=== PATIENT | female | born 1960 | race African-American/Black ===

== ENCOUNTER 2016-08-19 02:03 | Inpatient (IN) | payer MEDICARE, OTHER ==
[2016-08-19] VITALS (16 sets, daily range): BP systolic 112–231; BP diastolic 55–125; PULSE 70–117; RESP 16–24; TEMP 97.9–98.6; O2SAT 94–100
[~2016-08-19] VITALS: Ht 157.5 cm; Wt 66.5 kg
[~2016-08-19 02:03] MED LIST: ALBU8I INH; APIX5TAB PO; CALC.25 PO; CARD4TAB2 PO; CLON.1 PO; GABA100C4 PO; HYDR100T2 PO; LOPI600T PO; MAGN400 PO; METO100T PO; MEVA40TA PO; MYCO500 PO; OMEP40CA2 PO; PRED20 PO; PROC60TA PO; TACR1 PO; TRIAMC.1%T TOP; TUMS CHEW; VITA-13 PO; Z.0.WALKERFRONT
[2016-08-19] MEDS ORDERED: ONDANSETRON HCL 4 MG/2 ML VIAL ONE (02:55)
[2016-08-19] MEDS ORDERED: FAMOTIDINE 20 MG/2 ML VIAL IV PUSH ONE (03:00)
[2016-08-19] MEDS ORDERED: ONDANSETRON HCL 4 MG/2 ML VIAL IVP ONE (03:00)
[2016-08-19] MEDS ORDERED: SODIUM CHLORIDE 0.9% FLUSH 10 ML FLUSH IV FLUSH PRN ×3 (03:00→09:45)
[2016-08-19] MEDS ORDERED: hydrALAZINE HCL 20 MG/ML VIAL IV PUSH ONE ×2 (03:00→04:45)
--- NOTE | 2016-08-19 03:08 | PD ---
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 Patient reports that she had her normal dialysis on Wednesday, reports that after that she went out to eat for lunch, reports that shortly thereafter, she began to feel sick. Patient reports that she began to have a headache, reports that she feels increased pressure to her head, reports that she felt as if her blood pressure was high with the systolic blood pressure in the 170s. Patient reports that she has no vision changes with her headache, reports headache as a pounding sensation to her head. Patient reports that she has been taking all her blood pressure medications as prescribed. Patient reports that tonight, she began to feel sick and reports that she has been feeling nauseous and has been vomiting. Patient reports that she has an uncomfortable, crampy feeling to her abdomen with no pain. Denies any sick contacts. Denies chest pain or shortness of breath at this time. Reports that she does make some urine PFSH Past Medical History Arthritis: Yes Asthma: No Blood Disorders: No Heart Rhythm Problems: No Cancer: No Cardiovascular Problems: Yes (SLIGHT CVA) High Cholesterol: Yes Chest Pain: No Congestive Heart Failure: No COPD: No Cerebrovascular Accident: Yes Diabetes: Yes Patient Takes Glucophage: Yes Dialysis: No Diminished Hearing: No Endocrine: No Gastrointestinal Disorders: Yes (GERD/REFLUX) GERD: Yes Genitourinary: Yes (TRANSPLANT) Headaches: No Hepatitis: No Hiatal Hernia: No Hypertension: Yes Immune Disorder: No Implanted Vascular Access Dvce: Yes (AV FISTULA L ARM) Musculoskeletal: No Neurologic: Yes (WEAKNESS DUE TO RECENT HOSPITALIZATION) Psychiatric: No Reproductive: No Respiratory: Yes Migraines: No Myocardial Infarction: No Renal Failure: Yes (SECONDARY TO A VIRUS PER PT/RENAL TRANSPLANT) Seizures: Yes Sleep Apnea: Yes Thyroid Disease: No Ulcer: No Tetanus Vaccination: Unknown Influenza Vaccination: Yes ?: Not Menopausal: Yes : 1 Para: 0 Miscarriage: 1 : 0 Past Surgical History Abdominal Surgery: No AICD: No Appendectomy: No Cardiac Surgery: No Cholecystectomy: No Ear Surgery: No Endocrine Surgery: No Eye Surgery: No Genitourinary Surgery: Yes (LEFT KIDNEY TRANSPLANT) Gynecologic Surgery: No Joint Replacement: No Oral Surgery: No Pacemaker: No Thoracic Surgery: Yes Other Surgery: Yes (VAS-CATH PLACEMENT (RIGHT CHEST)/REMOVED) Social History Alcohol Use: No Tobacco Use: No Substance Use: No Allergies-Medications (Allergen,Severity, Reaction): Coded Allergies: Penicillin (Verified Allergy, Severe, Seizures, 08/19/16) Protonix (Verified Allergy, Severe, Seizures, 08/19/16) Reported Meds & Prescriptions Reported Meds & Active Scripts Active Active Prescriptions or Reported Medications Unobtainable Review of Systems General / Constitutional: No: Fever Eyes: No: Visual changes HENT: Positive: Headaches Cardiovascular: No: Chest Pain or Discomfort Respiratory: No: Shortness of Breath Gastrointestinal: Positive: Nausea, Vomiting, No: Abdominal Pain Genitourinary: No: Dysuria Musculoskeletal: No: Pain Skin: No Rash Neurologic: Positive: Headache, No: Weakness Psychiatric: No: Depression Endocrine: No: Polydipsia Hematologic/Lymphatic: No: Easy Bruising Physical Exam Narrative GENERAL: Patient in moderate distress SKIN: warm/dry. HEAD: Atraumatic. Normocephalic. EYES: Pupils equal and round. No scleral icterus. No injection or drainage. ENT: No nasal bleeding or discharge. Mucous membranes pink and moist. NECK: Trachea midline. No JVD. CARDIOVASCULAR: Regular rate and rhythm. No murmur appreciated. RESPIRATORY: No accessory muscle use. Clear to auscultation. Breath sounds equal bilaterally. GASTROINTESTINAL: Abdomen soft, non-tender, nondistended. Hepatic and splenic margins not palpable. MUSCULOSKELETAL: No obvious deformities. No clubbing. No cyanosis. No edema. Patient with right-sided AV fistula with good thrill NEUROLOGICAL: Awake and alert. No obvious cranial nerve deficits. Motor grossly within normal limits. Normal speech. PSYCHIATRIC: Appropriate mood and affect; insight and judgment normal. Data Data Last Documented VS Vital Signs Date Time Temp Pulse Resp B/P Pulse Ox O2 Delivery O2 Flow Rate FiO2 08/19/16 05:25 97 20 198/86 98 08/19/16 03:08 Room Air 08/19/16 02:06 98.6 Orders Ondansetron Inj (Zofran Inj) (08/19/16 02:55) Complete Blood Count With Diff (08/19/16 02:59) Comprehensive Metabolic Panel (08/19/16 02:59) Lipase (08/19/16 02:59) Prothrombin Time / Inr (Pt) (08/19/16 02:59) Act Partial Throm Time (Ptt) (08/19/16 02:59) Urinalysis - C+S If Indicated (08/19/16 02:59) Iv Access Insert/Monitor (08/19/16 02:59) Ecg Monitoring (08/19/16 02:59) Oximetry (08/19/16 02:59) NPO (08/19/16 02:59) Ondansetron Inj (Zofran Inj) (08/19/16 03:00) Sodium Chloride 0.9% Flush (Ns Flush) (08/19/16 03:00) Chest, Single Ap (08/19/16 02:59) Famotidine Inj (Pepcid Inj) (08/19/16 03:00) Ct Brain W/O Iv Contrast(Rout) (08/19/16 02:59) Ckmb (Isoenzyme) Profile (08/19/16 02:59) Troponin I (08/19/16 02:59) Hydralazine Inj (Apresoline Inj) (08/19/16 03:00) Dexamethasone Inj (Decadron Inj) (08/19/16 03:15) Lorazepam Inj (Ativan Inj) (08/19/16 03:30) Metoclopramide Inj (Reglan Inj) (08/19/16 03:30) Metoclopramide Inj (Reglan Inj) (08/19/16 03:45) CKMB (08/19/16 02:50) CKMB% (08/19/16 02:50) Hydralazine Inj (Apresoline Inj) (08/19/16 04:45) Labs Laboratory Tests Test 08/19/16 02:50 White Blood Count 10.5 TH/MM3 Red Blood Count 5.81 MIL/MM3 Hemoglobin 12.4 GM/DL Hematocrit 39.8 % Mean Corpuscular Volume 68.4 FL Mean Corpuscular Hemoglobin 21.3 PG Mean Corpuscular Hemoglobin 31.1 % Concent Red Cell Distribution Width 16.3 % Platelet Count 262 TH/MM3 Mean Platelet Volume 8.8 FL Neutrophils (%) (Auto) 80.2 % Lymphocytes (%) (Auto) 10.2 % Monocytes (%) (Auto) 8.7 % Eosinophils (%) (Auto) 0.4 % Basophils (%) (Auto) 0.5 % Neutrophils # (Auto) 8.4 TH/MM3 Lymphocytes # (Auto) 1.1 TH/MM3 Monocytes # (Auto) 0.9 TH/MM3 Eosinophils # (Auto) 0.0 TH/MM3 Basophils # (Auto) 0.0 TH/MM3 CBC Comment AUTO DIFF Differential Comment AUTO DIFF CONFIRMED Platelet Estimate NORMAL Platelet Morphology Comment NORMAL Ovalocytes 1+ Acanthocytes OCC Prothrombin Time 11.3 SEC Prothromb Time International 1.0 RATIO Ratio Activated Partial 28.7 SEC Thromboplast Time Sodium Level 138 MEQ/L Potassium Level 4.4 MEQ/L Chloride Level 101 MEQ/L Carbon Dioxide Level 24.1 MEQ/L Anion Gap 13 MEQ/L Blood Urea Nitrogen 32 MG/DL Creatinine 4.16 MG/DL Estimat Glomerular Filtration 13 ML/MIN Rate Random Glucose 180 MG/DL Calcium Level 9.2 MG/DL Total Bilirubin 0.4 MG/DL Aspartate Amino Transf 22 U/L (AST/SGOT) Alanine Aminotransferase 17 U/L (ALT/SGPT) Alkaline Phosphatase 150 U/L Total Creatine Kinase 119 U/L Creatine Kinase MB 2.8 NG/ML Troponin I LESS THAN 0.02 NG/ML Total Protein 6.9 GM/DL Albumin 3.4 GM/DL Lipase 169 U/L [facility] Medical Decision Making Medical Screen Exam Complete: Yes Emergency Medical Condition: Yes Interpretation(s) EKG at 0229: NSR at 84bpm, qt/qtc: 376/416, no acute st or t wave changes Vital Signs Date Time Temp Pulse Resp B/P Pulse Ox O2 Delivery O2 Flow Rate FiO2 08/19/16 02:32 85 20 100 08/19/16 02:17 16 08/19/16 02:06 98.6 117 18 231/125 97 Differential Diagnosis Hypertensive emergency, intracranial hemorrhage, electrolyte abnormality, ACS Narrative Course 55-year-old female with end-stage renal disease on hemodialysis, presents to emergency room with complaints of nausea vomiting and headache. Patient reports that her symptoms began yesterday after her dialysis, reports that symptoms initially began with the headache and then progressed to nausea and vomiting. Patient reports that she feels a panic sensation to her head, no vision changes. Patient denies any trauma to her head. Patient reports that she has not been able to stop vomiting tonight, reports a cramping sensation to her abdomen with no pain. Patient actively vomiting in the emergency room, IV Zofran ordered for patient. Patient hypotensive with a blood pressure of 231/125, will give patient a dose of IV hydralazine. Labs as well as CT of head ordered further evaluation of symptoms. Patient was placed on playground monitor upon arrival to emergency room. CBC & BMP Diagram 08/19/16 02:[address] 08/19/16258 Signed Impressions: Service Date/Time: Friday, August 19, 2016 03:37 - CONCLUSION: No acute intracranial disease. Ashish Soriano MD Chest X-Ray 08/19/16258 Signed Impressions: Service Date/Time: Friday, August 19, 2016 03:07 - CONCLUSION: No acute disease. Ashish Soriano MD Patients blood pressure improved now, 198/86 after 30mg IV hydralazine. Patient reports the headache has since resolved. I did review all labs and studies with patient in detail. Patient will require observation for hypertensive urgency. case reviewed with dr. valadez who accepts pt to service Diagnosis Primary Impression: Hypertensive urgency Additional Impression: Cephalgia Admitting Information Admitting Physician Requests: Observation Scripts Unable to Obtain Active Prescriptions or Reported Meds Trinh Clarke DO Aug 19, 2016 03:08
[2016-08-19] MEDS ORDERED: DEXAMETHASONE SOD PHOS 20 MG/5 ML VIAL IV PUSH ONE (03:15)
[2016-08-19 03:24] LABS: AUTOMATED NEUTROPHIL # 8.4 TH/MM3 (1.8-7.7); BASOPHIL % 0.5 % (0.0-2.0); EOSINOPHIL % 0.4 % (0.0-4.0); HEMATOCRIT 39.8 % (35.0-46.0); LYMPH % 10.2 % (9.0-44.0); LYMPHOCYTE # 1.1 TH/MM3 (1.0-4.8); MEAN CELL VOLUME 68.4 FL (80.0-100.0); MEAN CORPUSCULAR HEMOGLOBIN 21.3 PG (27.0-34.0); MEAN CORPUSCULAR HGB CONC 31.1 % (32.0-36.0); MONO % 8.7 % (0.0-8.0); NEUT % 80.2 % (16.0-70.0); PLATELET COUNT 262 TH/MM3 (150-450); RED BLOOD COUNT 5.81 MIL/MM3 (4.00-5.30); RED CELL DISTRIBUTION WIDTH 16.3 % (11.6-17.2); WHITE BLOOD COUNT 10.5 TH/MM3 (4.0-11.0)
[2016-08-19 03:25] LABS: HEMO FLAGS AUTO DIFF
[2016-08-19] MEDS ORDERED: METOCLOPRAMIDE HCL 10 MG/2 ML VIAL IV PUSH ONE ×2 (03:30→03:45)
[2016-08-19] MEDS ORDERED: LORazepam 2 MG/ML VIAL IV PUSH ONE (03:30)
[2016-08-19 03:40] LABS: APTT (PATIENT) 28.7 SEC (24.3-30.1); PROTHROMBIN TIME - PATIENT 11.3 SEC (9.8-11.6)
[2016-08-19 03:52] LABS: SCAN/DIFF AUTO DIFF CONFIRMED
[2016-08-19 03:53] LABS: ACANTHOCYTES OCC (NORMAL); ALKALINE PHOSPHATASE 150 U/L (45-117); ALT (GPT) 17 U/L (10-53); ANION GAP 13 MEQ/L (5-15); AST (GOT) 22 U/L (15-37); BICARBONATE 24.1 MEQ/L (21.0-32.0); BLOOD UREA NITROGEN 32 MG/DL (7-18); CHLORIDE 101 MEQ/L (98-107); CREATINE KINASE 119 U/L (26-192); GLOMERULAR FILTRATION RATE 13 ML/MIN (>89); OVALOCYTES 1+ (NORMAL); POTASSIUM 4.4 MEQ/L (3.5-5.1); SODIUM (NA) 138 MEQ/L (136-145); TOTAL BILIRUBIN ADULT 0.4 MG/DL (0.2-1.0)
[2016-08-19 03:54] LABS: PLATELET ESTIMATE SMEAR NORMAL (NORMAL); PLATELET MORPHOLOGY NORMAL (NORMAL)
[2016-08-19 04:06] LABS: CKMB 2.8 NG/ML (0.5-3.6)
--- NOTE | 2016-08-19 04:10 | RADRPT ---
EXAM DATE/TIME: 08/19/2016 03:37 [facility] COMPARISON: No previous studies available for comparison. INDICATIONS : Headache. RADIATION DOSE: 56.77 CTDIvol (mGy) MEDICAL HISTORY : Renal disease, end stage. Hypertension. Diabetes. SURGICAL HISTORY : None. ENCOUNTER: Initial ACUITY: 1 day PAIN SCALE: 5/10 LOCATION: cranial TECHNIQUE: Multiple contiguous axial images were obtained of the head. Using automated exposure control and adj ustment of the mA and/or kV according to patient size, radiation dose was kept as low as reasonably a chievable to obtain optimal diagnostic quality images. FINDINGS: CEREBRUM: The ventricles are normal for age. No evidence of midline shift, mass lesion, hemorrhage or acute in farction. No extra-axial fluid collections are seen. POSTERIOR FOSSA: The cerebellum and brainstem are intact. The 4th ventricle is midline. The cerebellopontine angle i s unremarkable. EXTRACRANIAL: The visualized portion of the orbits is intact. SKULL: The calvaria is intact. No evidence of skull fracture. CONCLUSION: No acute intracranial disease. Ashish Soriano MD on August 19, 2016 at 4:08 Board Certified Radiologist. This report was verified electronically.
--- NOTE | 2016-08-19 04:15 | RADRPT ---
EXAM DATE/TIME: 08/19/2016 03:07 [facility] COMPARISON: CHEST SINGLE AP, June 27, 2015, 17:21. INDICATIONS : Shortness of breath. MEDICAL HISTORY : Hypercholesterolemia. Hypertension Gastroesophageal reflux disease. Stroke. Seizures. Sleep apnea . End stage renal disease. Arthritis. Diabetes. Hyperlipidemia, Upper Extremity DVT SURGICAL HISTORY : Renal transplant 2009. Right arm AV fistula. Vas - Cath for hemodialysis ENCOUNTER: Initial ACUITY: 1 day PAIN SCORE: 8/10 LOCATION: Bilateral chest FINDINGS: A single view of the chest demonstrates the lungs to be symmetrically aerated without evidence of mas s, infiltrate or effusion. The cardiomediastinal contours are unremarkable. Osseous structures are intact. No free air underneath the hemidiaphragms. CONCLUSION: No acute disease. Ashish Soriano MD on August 19, 2016 at 4:13 Board Certified Radiologist. This report was verified electronically.
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
[2016-08-19] MEDS ORDERED: ENALAPRILAT 1.25 MG/ML VIAL IV PRN (06:15)
[2016-08-19] MEDS ORDERED: LABETALOL HCL 100 MG/20 ML VIAL IV PRN (06:15)
[2016-08-19] MEDS ORDERED: hydrALAZINE HCL 20 MG/ML VIAL IV PRN (06:15)
[2016-08-19] MEDS ORDERED: cloNIDine HCL 0.1 MG TAB PO PRN ×2 (06:15→09:45)
[2016-08-19] MEDS: hydrALAZINE HCL 100 MG TAB PO SCH ×3 (07:00→20:21)
[2016-08-19] MEDS ORDERED: ALBUTEROL SULFATE 90 MCG/ACT HFA 18 GM INHALER INH PRN (07:00)
[2016-08-19] MEDS: MAGNESIUM OXIDE 400 MG TAB PO SCH ×3 (07:00→20:21)
[2016-08-19] MEDS ORDERED: GEMFIBROZIL 600 MG TAB PO SCH (07:00)
[2016-08-19] MEDS ORDERED: GABA100C4 PO (07:04)
[2016-08-19] MEDS ORDERED: HYDR-3801 PO (07:04)
[2016-08-19] MEDS ORDERED: METO100T PO (07:04)
[2016-08-19] MEDS ORDERED: PRED5TAB PO (07:04)
[2016-08-19] MEDS ORDERED: TRIA0.1L TOPICAL (07:04)
[2016-08-19] MEDS ORDERED: MYCO500 PO (07:04)
[2016-08-19] MEDS ORDERED: NIFE1TAB86 PO (07:04)
[2016-08-19] MEDS ORDERED: TACR1 PO (07:04)
[2016-08-19] MEDS ORDERED: GEMF600T PO (07:04)
[2016-08-19] MEDS ORDERED: APIX5TAB PO (07:04)
[2016-08-19] MEDS ORDERED: DOXA4TAB3 PO (07:05)
[2016-08-19] MEDS ORDERED: CALC500C6 CHEW (07:05)
[2016-08-19] MEDS ORDERED: MAGN400T2 PO (07:05)
[2016-08-19] MEDS ORDERED: VENTAER INH (07:05)
[2016-08-19] MEDS ORDERED: VITA100018 PO (07:05)
[2016-08-19] MEDS ORDERED: CLON0.1T PO (07:05)
[2016-08-19] MEDS ORDERED: CALC0.25 PO (07:05)
[2016-08-19] MEDS ORDERED: OMEP40CA2 PO (07:05)
[2016-08-19] MEDS ORDERED: LOVA40TA PO (07:05)
[2016-08-19] MEDS ORDERED: HYDROmorphone HCL PF 1 MG/ML VIAL IV PRN (07:15)
[2016-08-19] MEDS ORDERED: ACETAMINOPHEN/HYDROcodone 325 MG/5 MG TAB PO PRN (07:15)
[2016-08-19] MEDS ORDERED: METOCLOPRAMIDE HCL 10 MG/2 ML VIAL IV PUSH PRN (07:15)
[2016-08-19] MEDS ORDERED: ACETAMINOPHEN 325 MG TAB PO PRN ×2 (07:15→09:45)
[2016-08-19] MEDS ORDERED: ONDANSETRON HCL 4 MG/2 ML VIAL IVP PRN (07:15)
[2016-08-19] MEDS ORDERED: ACETAMINOPHEN/HYDROcodone 325 MG/10 MG TAB PO PRN (07:15)
[2016-08-19] MEDS ORDERED: PROCHLORPERAZINE 25 MG SUPP RECTAL PRN (07:15)
[2016-08-19] MEDS ORDERED: predniSONE 5 MG TAB PO SCH (09:00)
[2016-08-19] MEDS ORDERED: TACROLIMUS 1 MG CAP PO SCH (09:00)
[2016-08-19] MEDS: APIXABAN 5 MG TABLET PO SCH ×2 (09:00→20:22)
[2016-08-19] MEDS ORDERED: NON-FORMULARY DRUG (Omeprazole 40 MG) PO SCH (09:00)
[2016-08-19] MEDS ORDERED: MYCOPHENOLATE MOFETIL 500 MG TAB PO SCH (09:00)
[2016-08-19] MEDS ORDERED: CALCITRIOL 0.25 MCG CAP PO SCH (09:00)
[2016-08-19] MEDS: TRIAMCINOLONE ACET 0.1% LOTION 60 ML BTL TOPICAL SCH ×2 (09:00→13:00)
[2016-08-19] MEDS ORDERED: DEXTROSE 50% IN WATER 50 ML VIAL(D50) IV PUSH PRN (09:30)
[2016-08-19] MEDS ORDERED: GLUCAGON 1 MG/ML VIAL OTHER PRN (09:30)
[2016-08-19] MEDS ORDERED: SODIUM CHLOR 0.9% 1000 ML INJ 1,000 ML IV PRN ×3 (09:37)
[2016-08-19] MEDS ORDERED: HEPARIN SODIUM - IV 10,000 UNITS/10 ML VIAL PRN (09:45)
[2016-08-19] MEDS ORDERED: ALBUMIN HUMAN 25% 25 GM/100 ML BAGP IV PRN (09:45)
[2016-08-19] MEDS ORDERED: HEPARIN SODIUM - IV 10,000 UNITS/10 ML VIAL IVF PRN (09:45)
[2016-08-19] MEDS ORDERED: diphenhydrAMINE HCL 25 MG CAP PO PRN (09:45)
[2016-08-19] MEDS ORDERED: GENTAMICIN SULFATE (DIALYSIS USE ONLY) 20 MG/2 ML VIAL IV PRN (09:45)
[2016-08-19] MEDS ORDERED: MANNITOL 12.5 GM/50 ML VIAL IV PRN (09:45)
[2016-08-19] MEDS ORDERED: GELATIN 12 MM/7 MM FOAM TOP PRN (09:45)
[2016-08-19] MEDS ORDERED: ONDANSETRON HCL 4 MG/2 ML VIAL IV PRN (09:45)
[2016-08-19] MEDS ORDERED: NITROGLYCERIN 0.4 MG SL 25 TABS/BTL SL PRN (09:45)
--- NOTE | 2016-08-19 11:51 | EKG ---
Date Performed: 08/19/2016 Time Performed: 02:29:37 PTAGE: 55 years EKG: Sinus rhythm POSSIBLE LEFT ATRIAL ENLARGEMENT BORDERLINE ECG NO PREVIOUS TRACING DOCTOR: Jose Kirk Interpretating Date/Time 08/19/2016 11:50:06
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
[2016-08-19] MEDS: NIFEdipine 60 MG SUSTAINED RELEASE TAB PO SCH (12:05)
[2016-08-19] MEDS: CHOLECALCIFEROL (VIT D3) 1000 UNIT TAB PO SCH (12:05)
[2016-08-19] MEDS: METOPROLOL TARTRATE 100 MG TAB PO SCH ×2 (12:06→20:21)
[2016-08-19] MEDS: INSULIN ASPART SUPPLEMENTAL SCALE SQ SCH ×3 (12:06→20:18)
[2016-08-19] MEDS: CALCIUM CARBONATE 500 MG CHEWABLE TAB CHEW SCH ×2 (12:06→20:21)
[2016-08-19] MEDS: SODIUM CHLORIDE 0.9% FLUSH 10 ML FLUSH IV FLUSH SCH ×2 (12:06→20:20)
[2016-08-19] MEDS: DOXAZOSIN MESYLATE 4 MG TAB PO SCH (12:06)
[2016-08-19] MEDS: LOSARTAN 50 MG TAB PO SCH (12:07)
[2016-08-19] MEDS: TRIAMCINOLONE ACETONIDE 0.1% CREAM 15 GM TOPICAL SCH (16:26)
[2016-08-19] MEDS ORDERED: GABAPENTIN 100 MG CAP PO SCH (21:00)
[2016-08-19] MEDS ORDERED: PRAVASTATIN SOD 40 MG TAB PO SCH (21:00)
[2016-08-20] VITALS: BP 133/65; PULSE 69; RESP 18; TEMP 99.4; O2SAT 99
[2016-08-20 04:00] VITALS: BP 126/74; PULSE 64; RESP 18; TEMP 98; O2SAT 97
[2016-08-20] MEDS: INSULIN ASPART SUPPLEMENTAL SCALE SQ SCH ×2 (04:46→11:00)
[2016-08-20] MEDS: MAGNESIUM OXIDE 400 MG TAB PO SCH ×2 (05:22→12:45)
[2016-08-20] MEDS: hydrALAZINE HCL 100 MG TAB PO SCH (05:22)
[2016-08-20 07:25] LABS: AUTOMATED NEUTROPHIL # 5.3 TH/MM3 (1.8-7.7); BASOPHIL % 0.3 % (0.0-2.0); EOSINOPHIL % 0.6 % (0.0-4.0); HEMATOCRIT 36.7 % (35.0-46.0); LYMPH % 18.9 % (9.0-44.0); LYMPHOCYTE # 1.4 TH/MM3 (1.0-4.8); MEAN CELL VOLUME 67.6 FL (80.0-100.0); MEAN CORPUSCULAR HEMOGLOBIN 21.3 PG (27.0-34.0); MEAN CORPUSCULAR HGB CONC 31.5 % (32.0-36.0); MONO % 11.5 % (0.0-8.0); NEUT % 68.7 % (16.0-70.0); PLATELET COUNT 273 TH/MM3 (150-450); RED BLOOD COUNT 5.43 MIL/MM3 (4.00-5.30); RED CELL DISTRIBUTION WIDTH 16.4 % (11.6-17.2); WHITE BLOOD COUNT 7.7 TH/MM3 (4.0-11.0)
[2016-08-20 07:36] LABS: HEMO FLAGS AUTO DIFF
[2016-08-20 07:41] VITALS: PULSE 84
[2016-08-20 07:43] LABS: BICARBONATE 25.6 MEQ/L (21.0-32.0)
[2016-08-20 08:00] VITALS: BP 134/61; PULSE 66; RESP 20; TEMP 97.9; O2SAT 96
[2016-08-20 08:27] LABS: KERATOCYTES OCC (NORMAL); OVALOCYTES 1+ (NORMAL); SCAN/DIFF AUTO DIFF CONFIRMED
[2016-08-20] MEDS: APIXABAN 5 MG TABLET PO SCH (09:00)
[2016-08-20] MEDS: TRIAMCINOLONE ACETONIDE 0.1% CREAM 15 GM TOPICAL SCH ×2 (09:00→12:48)
[2016-08-20] MEDS ORDERED: LANSOPRAZOLE SOLUTAB 30 MG TAB PO SCH (09:00)
[2016-08-20] MEDS: SODIUM CHLORIDE 0.9% FLUSH 10 ML FLUSH IV FLUSH SCH (09:00)
--- NOTE | 2016-08-20 10:32 | HHI.NPPN ---
Subjective General Problems: Hypertension Renal Failure: Chronic, End Stage Renal Disease Interval History Seen during dialysis this morning. Blood pressure is much better. She reports confusion yesterday, does not remember informing us that she was off her antirejection medication. Potential discharge today. (Liliane Ramos) Objective Data Data 08/19/16 08/20/16 19:00 07:00 Intake Total 280 ml 484 ml Balance 280 ml 484 ml Intake Oral 280 ml 480 ml IV Total 4 ml # Voids 3 3 # Bowel Movements 0 1 Vital Signs Date Time Temp Pulse Resp B/P Pulse Ox O2 Delivery O2 Flow Rate FiO2 08/20/16 08:00 97.9 66 20 134/61 96 08/20/16 07:42 Room Air 08/20/16 07:41 84 08/20/16 04:00 98.0 64 18 126/74 97 08/20/16 00:00 99.4 69 18 133/65 99 08/19/16 22:02 21 08/19/16 20:26 71 08/19/16 20:15 Room Air 08/19/16 20:00 98.5 70 17 112/55 96 08/19/16 16:00 73 08/19/16 16:00 97.9 72 18 151/67 98 08/19/16 11:54 Room Air 08/19/16 10:36 98.5 79 18 155/69 94 (Liliane Ramos) -: 08/20/16 0536 08/20/16 0536 Imaging Last Impressions Head CT 08/19/16258 Signed Impressions: Service Date/Time: Friday, August 19, 2016 03:37 - CONCLUSION: No acute intracranial disease. Ashish Soriano MD Chest X-Ray 08/19/169 Signed Impressions: Service Date/Time: Friday, August 19, 2016 03:07 - CONCLUSION: No acute disease. Ashish Soriano MD (Liliane Ramos) Physical Exam General Appearance: Well Developed, Well Nourished, No Acute Distress, Sleeping ( Liliane Ramos) Throat Throat Exam: Oral Mucosa [place] & Moist (Liliane Ramos) Pulmonary Resp Exam: Clear Bilaterally, Breath Sounds Equal (Liliane Ramos) Cardiology CV Exam: Regular, Normal Sinus Rhythm (Liliane Ramos) Gastrointestinal/Abdomen GI Exam: Soft, Non-Tender, Bowel Sounds Present (Liliane Ramos) Musculoskeletal MS Exam: Joints Intact, Normal Gait, Normal Tone, Good Strength (Liliane Ramos) Integumentary Skin Exam: Clear, Warm, Dry, Intact (Liliane Ramos) Extremeties Extremities Exam: No Edema, Pedal Pulses Palpable Extremeties Remarks right arm AVF accessed during exam (Liliane Ramos) Neurologic Neuro Exam: Alert, Awake, Oriented, Speech Clear, Moving All Extremities ( Liliane Ramos) Psychiatric Psych Exam: Appropriate Responses (Liliane Ramos) VTE Prophylaxis VTE Remarks lucho (Liliane Ramos) Assessment/Plan Discussed Condition With: Patient Assessment Summary: Hypertension, End Stage Renal Disease, Transplant Kidney Status Problem List: (1) ESRD (end stage renal disease) on dialysis Plan: HD TTS, seen during dialysis today on a 2K, 350 BFR, goal 2L no current electrolyte issues, no evidence of fluid overload has functioning access for HD she is not anemic this admission, no Epogen required on sensipar for secondary hyperparathyroidism she has existing outpatient HD arrangements, can be discharged from renal standpoint (2) Hypertensive urgency Plan: continue now an after discharge Lopressor 100 mg po BID Cardura 4 mg po daily Bumex 2 mg daily losartan 50 mg daily nifedipine XL 60 mg daily hydralazine 100 mg po TID BP has improved (3) Rejection of transplanted organ Plan: she is still on prednisone, cellcept, and tacrolimus (Liliane Ramos) Plan patient was seen and examined during dialysis. BP is better. Non compliance is an issue. She may be forgetful. Patient can be discharged from renal standpoint. (Hoang Denise MD) Liliane Ramos Aug 20, 2016 10:32 Hoang Denise MD Aug 20, 2016 11:29
--- NOTE | 2016-08-20 10:55 | HHI.DCPOC ---
Discharge Care Plan Diagnosis: (1) Hypertensive urgency (2) ESRD (end stage renal disease) on dialysis Goals to Promote Your Health * To prevent worsening of your condition and complications * To maintain your health at the optimal level Directions to Meet Your Goals Take your medications as prescribed Follow your dietary instruction Follow activity as directed Keep your appointments as scheduled Take your immunizations and boosters as scheduled If your symptoms worsen call your PCP, if no PCP go to Urgent Care Center or Emergency Room Smoking is Dangerous to Your Health. Avoid second hand smoke Call the 24-hour hour crisis hotline for domestic abuse at Sydni Morales MD R3 Aug 20, 2016 10:55
[2016-08-20] MEDS ORDERED: TACROLIMUS 1 MG CAP PO ONE (11:30)
[2016-08-20] MEDS ORDERED: MYCOPHENOLATE MOFETIL 500 MG TAB PO ONE (11:30)
[2016-08-20] MEDS ORDERED: predniSONE 5 MG TAB PO SCH (11:30)
[2016-08-20] MEDS ORDERED: CINACALCET HYDROCHLORIDE 30 MG TAB PO SCH (11:30)
[2016-08-20 12:00] VITALS: BP 139/63; PULSE 64; RESP 20; TEMP 98; O2SAT 96
[2016-08-20] MEDS ORDERED: SEVELAMER CARBONATE 800 MG TAB PO SCH (12:00)
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
[2016-08-20] MEDS: CHOLECALCIFEROL (VIT D3) 1000 UNIT TAB PO SCH (12:45)
[2016-08-20] MEDS: LOSARTAN 50 MG TAB PO SCH (12:46)
[2016-08-20] MEDS: NIFEdipine 60 MG SUSTAINED RELEASE TAB PO SCH (12:46)
[2016-08-20] MEDS: METOPROLOL TARTRATE 100 MG TAB PO SCH (12:46)
[2016-08-20] MEDS: DOXAZOSIN MESYLATE 4 MG TAB PO SCH (12:47)
[2016-08-20] MEDS: CALCIUM CARBONATE 500 MG CHEWABLE TAB CHEW SCH (12:47)
[2016-08-21] MEDS ORDERED: CLON0.1T PO ×2 (08:05→08:07)
[2016-08-21] MEDS ORDERED: GEMF600T PO ×2 (08:05→08:07)
[2016-08-21] MEDS ORDERED: HYDR-3801 PO ×2 (08:05→08:07)
[2016-08-21] MEDS ORDERED: GABA100C4 PO ×2 (08:05→08:07)
[2016-10-22] MEDS ORDERED: METO100T PO (09:56)
[2016-10-22] MEDS ORDERED: LOVA40TA PO (09:56)
[2016-10-22] MEDS ORDERED: PRED5TAB PO (09:56)
[2016-10-22] MEDS ORDERED: OMEP40CA2 PO (09:56)
[2016-10-22] MEDS ORDERED: VITA100018 PO (09:56)
[2016-10-22] MEDS ORDERED: VENTAER INH (09:56)
== END 2016-08-20 14:03 | disposition home or self-care (01) | DRG 304 ==
LOC: NEPC 02:03 → NEDA 05:41 → OBSVTOIN 08:24 → N04B 10:37
PROVIDERS: ADMIT Family Medicine; ATTEND Family Medicine
PROC: 5A1D00Z (ICD-10-PCS; principal; 2016-08-20)
DX: I16.0 Hypertensive urgency (principal); N18.6 End stage renal disease; T86.11 Kidney transplant rejection; E11.22 Type 2 diabetes mellitus with diabetic chronic kidney disease; Y83.0 Surgical operation with transplant of whole organ as the cause of abnormal reaction of the patient, or of later complication, without mention of misadventure at the time of the procedure; F32.9 Major depressive disorder, single episode, unspecified; F41.9 Anxiety disorder, unspecified; K21.9 Gastro-esophageal reflux disease without esophagitis; E78.5 Hyperlipidemia, unspecified; J42 Unspecified chronic bronchitis; I12.0 Hypertensive chronic kidney disease with stage 5 chronic kidney disease or end stage renal disease; Z99.2 Dependence on renal dialysis; Z91.19 Patient's noncompliance with other medical treatment and regimen
CPT/HCPCS: 70450; 71010; 80048; 80053; 82550; 82552; 82948; 83690; 84100; 84484; 85025; 85610; 85730; 90935; 93005; 96374; 96375; J0360; J1100; J1815; J2060; J2405; J2765; J7512

== ENCOUNTER 2017-07-01 06:57 | Day surgery (SDC) | payer MEDICARE, OTHER ==
[2017-07-01] VITALS (7 sets, daily range): BP systolic 154–159; BP diastolic 57–70; PULSE 66–90; RESP 17–20; TEMP 98–98.8; O2SAT 100
[~2017-07-01] VITALS: Ht 157.5 cm; Wt 66.0 kg
[~2017-07-01 06:57] MED LIST changes: -ALBU8I INH; -APIX5TAB PO; -CALC.25 PO; -CARD4TAB2 PO; -CLON.1 PO; +DOXA4TAB3 PO; -GABA100C4 PO; +HYDR-3801 PO; -HYDR100T2 PO; -LOPI600T PO; +LOVA40TA PO; -MAGN400 PO; -MEVA40TA PO; +NIFE1TAB86 PO; -PRED20 PO; +PRED5TAB PO; -PROC60TA PO; +TRIA0.1L TOPICAL; -TRIAMC.1%T TOP; -TUMS CHEW; +VENTAER INH; -VITA-13 PO; +VITA100018 PO; -Z.0.WALKERFRONT
[2017-07-01] MEDS ORDERED: IOHEXOL 350 MG/ML 50 ML BTL (for Cath Lab) OTHER ONE (06:58)
[2017-07-01] MEDS ORDERED: IOHEXOL 350 MG/ML 100 ML BTL (for Cath Lab) OTHER ONE (06:58)
[2017-07-01] MEDS ORDERED: VANCOMYCIN 500 MG VIAL ONE (07:49)
[2017-07-01] MEDS ORDERED: LIDOCAINE HCL 1% PF 30 ML VIAL ONE (07:49)
[2017-07-01] MEDS ORDERED: METOPROLOL TARTRATE 5 MG/5 ML VIAL ONE (07:49)
[2017-07-01] MEDS ORDERED: OMEP20TA93 PO (07:53)
[2017-07-01] MEDS ORDERED: BUME2TAB PO (07:53)
[2017-07-01] MEDS ORDERED: CLEO1GEL TOPICAL (07:53)
[2017-07-01] MEDS ORDERED: TACR5CAP PO (07:53)
[2017-07-01] MEDS ORDERED: VENTAER INH (07:53)
[2017-07-01] MEDS ORDERED: LOSA50TA PO (07:53)
[2017-07-01] MEDS ORDERED: HYDR-3801 PO (07:53)
[2017-07-01] MEDS ORDERED: CARD4TAB2 PO (07:53)
[2017-07-01] MEDS ORDERED: PRED10 PO (07:53)
[2017-07-01 08:09] LABS: AUTOMATED NEUTROPHIL # 6.1 TH/MM3 (1.8-7.7); BASOPHIL # 0.1 TH/MM3 (0-0.2); BASOPHIL % 0.8 % (0.0-2.0); EOSINOPHIL # 0.2 TH/MM3 (0-0.4); EOSINOPHIL % 2.3 % (0.0-4.0); HEMATOCRIT 31.4 % (35.0-46.0); HEMOGLOBIN 9.8 GM/DL (11.6-15.3); LYMPH % 15.9 % (9.0-44.0); LYMPHOCYTE # 1.4 TH/MM3 (1.0-4.8); MEAN CELL VOLUME 68.1 FL (80.0-100.0); MEAN CORPUSCULAR HEMOGLOBIN 21.2 PG (27.0-34.0); MEAN PLATELET VOLUME 8.2 FL (7.0-11.0); MONO % 10.9 % (0.0-8.0); MONOCYTE # 0.9 TH/MM3 (0-0.9); NEUT % 70.1 % (16.0-70.0); PLATELET COUNT 296 TH/MM3 (150-450); RED BLOOD COUNT 4.61 MIL/MM3 (4.00-5.30); RED CELL DISTRIBUTION WIDTH 16.6 % (11.6-17.2); WHITE BLOOD COUNT 8.7 TH/MM3 (4.0-11.0)
[2017-07-01 08:16] LABS: PROTHROMBIN TIME - PATIENT 10.2 SEC (9.8-11.6)
[2017-07-01 08:22] LABS: BICARBONATE 25.5 MEQ/L (21.0-32.0); CALCIUM 9.3 MG/DL (8.5-10.1); CREATININE 4.35 MG/DL (0.50-1.00)
[2017-07-01] MEDS ORDERED: HEPARIN-NS/PF FLUSH BAG 2,000 ML IV FLUSH ONE (08:27)
[2017-07-01] MEDS ORDERED: MIDAZOLAM HCL 2 MG/2 ML VIAL ONE (08:28)
[2017-07-01] MEDS ORDERED: HEPARIN SODIUM - IV 10,000 UNITS/10 ML VIAL ONE (09:11)
[2017-07-01] MEDS ORDERED: hydrALAZINE HCL 20 MG/ML VIAL ONE (09:31)
[2017-07-01] MEDS ORDERED: TICAGRELOR 90 MG TAB PO ONE (09:51)
[2017-07-01] MEDS ORDERED: ASPIRIN 81 MG CHEW TAB ONE (09:51)
[2017-07-01] MEDS ORDERED: NITROGLYCERIN INJ 5 ML ONE (10:00)
[2017-07-01] MEDS ORDERED: ONDANSETRON HCL 4 MG/2 ML VIAL ONE (10:08)
[2017-07-01] MEDS ORDERED: NITROGLYCERIN 0.4 MG SL 25 TABS/BTL SL ONE (10:13)
--- NOTE | 2017-07-01 10:26 | CATHPROC ---
FIRE1 HIS Report Study Information Study Number Admission Scheduled Start Study Start [id number] Jul 01 2017 6:57AM 07/01/2017 Jul 01 2017 8:22AM [place] [facility] Cardiac Catheterization Admit Source Facility Department Other [facility] Physician and Clinical Staff Initial Amador Manzano Waistline Joiner Overlock Liliane Boles,AMBROCIO Waistline Joiner Overlock Slade ALBRECHT, Babatunde Other cathlab, cathlab Recorder Wendy Schmidt,WELDING ROBOT OPERATOR TECH2 Scrub Shobha Noe,RT(R) (BS) Procedures Performed Procedure Location (Site) Vessel Name Coronary Angiograms LCA Left Coronary Coronary Angiograms RCA Right Coronary Drug Eluting Inflatio LAD Mid Left Coronary Drug Eluting Inflatio RCA Mid Right Coronary PTCA LAD Mid Left Coronary PTCA RCA Mid Right Coronary Wire insertion Fem Art (right) Femoral Art Equipment Time Dramatic Reader Description Size Mfg Part Number Used/Scraped WIRE, BALANCE MIDDLEWEIGHT [id number] 09:12 [employer] 190CM Used 190CM *[id number] WIRE, BALANCE MIDDLEWEIGHT [id number] 09:44 [employer] 190CM Used 190CM *[id number] [employer] CATHETER, FR.7 BALLOON [id number] 08:46 FR 7 Used INC. WEDGE PRESSURE *[id number] TRANSDUCER, TRUWAVE [id number] 08:27 HERNANDEZ PINTO * Used W/STOCKCOCK *[id number] INTRODUCER SET, 08:27 [employer] FR 5 [id number] *[id number] Used MICROPUNCTURE, STIFFENED [id number] *[id number] [id number] *[id number] [id number] *[id number] 08:27 [employer] PACK, CCL CUSTOM * Used *[id number] 09:15 [employer] BALLOON, 2.0 X 15MM EUPHORA 15MM Used *[id number] BALLOON, 2.25 X 12MM NC [id number] 09:53 MED[employer] 12MM Used EUPHORA *[id number] BALLOON, 2.5 X 15MM NC [id number] 09:30 [employer] 15MM Used EUPHORA *[id number] 09:50 [employer] STENT, 2.25 22MM NOLBERTO 2.25 22MM [id number] Used 09:27 [employer] STENT, 2.5 22MM NOLBERTO 2.5 22MM [id number] Used [id number] 09:12 [employer]/AVE EBU 3.5 Z2 GUIDE CATHETER FR 6 Used *[id number] 09:11 [employer] MEDICAL 30 KIMI INDEFLATOR Used *[id number] 08:27 [employer] WIRE, 3MMJ .035 180CM 180CM Used *[id number] 08:27 NAMIC MANIFOLD, 4 PORT * Used *[id number] 08:27 [employer] OMNIPAQUE, 350 MG, 150ML 150ML [id number] Used [id number] 08:27 [employer],WARM AIR CCL * Used *[id number] 08:27 [employer] SHEATH, FR5 TERUMO (10CM) FR 5 Used *[id number] 09:11 [employer] MED[employer] SHEATH, FR6 TERUMO (10CM) FR 6 Used *[id number] 08:27 [employer] MED[employer] SHEATH, FR7 TERUMO (10CM) FR 7 Used *[id number] Equipment Model, Serial, Lot Number and Expiration Data Description Model Number Serial Number Lot Number Expiration Date STENT, 2.25 22MM NOLBERTO [id number] 01-09-2019 STENT, 2.5 22MM NOLBERTO [id number] 01-13-2019 History: Current Medications Medication Dosage/Unit Route Frequency Last Date/Time Taken Statins (any) PREDNISONE History: Allergies Allergy Reaction penicillin G Seizures pantoprazole Seizures History: Risk Factors Family History of Hypertension Dyslipidemia Previous [place] Previous Heart Failure Premature CAD Yes Yes No No No Prior Valve Prior PCI Prior CABG Surgery No No No Cerebrovascular Peripheral Artery Chronic Lung On Dialysis Diabetes Diabetes Therapy Disease Disease Disease No No No No Yes Diet History: Symptoms/Diagnosis Selection Items SOB History: Stress Tests Stress or Imaging Studies Performed Yes Standard Exercise Stress Test No Stress Echo No Stress Test SPECT No Stress Test CMR Stress Test CMR Result Stress Test CMR Ischemia Risk/Extent Yes Positive Intermediate Cardiac CTA Coronary Calcium Score No No History: Other Disease Selection Items Gerd Labs Hgb (g/dl) Hct (%) RBC (MIL/MM3) WBC (l/cumm) Platelets (thousands) 11.60-17.00 35.00-51.00 4.00-5.90 4.00-11.00 150.00-450.00 9.8 31.4 4.6 8.7 296 Glucose (mg/dl) BUN (mg/dl) Creatinine (mg/dl) BUN:Creatinine (1:x) 74.00-106.00 7.00-18.00 0.50-1.30 10.00-20.00 124 21 4.3 4.9 Na (meq/l) K (meq/l) Cl (meq/l) CO2 (mmol/L) Ca (mg/dl) 136.00-145.00 3.50-5.10 98.00-107.00 21.00-32.00 8.50-10.10 135 4 101 25.5 9.3 PT (sec) PTT (sec) INR (PTT:PT) 9.80-11.60 24.30-30.10 0.90-1.10 10.2 21.9 1 Medication Medication Total Dose (Bolus/Oral) Medication Total Dosage/Unit 1% XYLOCAINE 20 mL ASPIRIN 325 mg BRILINTA 180 mg FENTANYL 75 mcg HEPARIN 5000 units HYDRALAZINE 10 mg NTG (IC) 100 mcg VERSED 1 mg Medications (Bolus/Oral) Medication Time Given Dosage/Unit Administered By Reason FENTANYL 07/01/2017 8:49:16 AM 50 mcg Liliane Boles 50 mcg FENTANYL given in lab by Liliane Boles RN in Left Forearm via Peripheral IV. Ordered by Amador Hu 1% XYLOCAINE 07/01/2017 8:50:28 AM 20 mL Amador Zelaya 20 mL 1% XYLOCAINE given in lab by Amador Zelaya in Right Groin via Subcutaneous. Ordered by Amador Antunez HEPARIN 07/01/2017 9:13:08 AM 5000 units Liliane Boles 5000 units HEPARIN given in lab by Liliane Boles RN in Left Forearm via Peripheral IV. Ordered by Amador Leos VERSED 07/01/2017 9:14:16 AM 0.5 mg Liliane Boles 0.5 mg VERSED given in lab by Liliane Boles RN in Left Forearm via Peripheral IV. Ordered by Amador Vaca FENTANYL 07/01/2017 9:24:27 AM 25 mcg Liliane Boles 25 mcg FENTANYL given in lab by Liliane Boles RN in Left Forearm via Peripheral IV. Ordered by Amador Hu VERSED 07/01/2017 9:25:22 AM 0.5 mg Hesher, Liliane 0.5 mg VERSED given in lab by Liliane Boles RN in Left Forearm via Peripheral IV. Ordered by Amador Vaca HYDRALAZINE 07/01/2017 9:32:49 AM 10 mg Hesher, Liliane 10 mg HYDRALAZINE given in lab by Liliane Boles RN in Left Forearm via Peripheral IV. Ordered by Amador Antunez NTG (IC) 07/01/2017 9:58:45 AM 100 mcg Amador Zelaya 100 mcg NTG (IC) given in lab by Amador Zelaya in Right Groin via Intra-coronary. Ordered by Amador Antunez BRILINTA 07/01/2017 10:03:21 AM 180 mg Moher, Liliane 180 mg BRILINTA given in lab by Liliane Boles RN in Left Forearm via Peripheral IV. Ordered by Amador Hu ASPIRIN 07/01/2017 10:04:34 AM 325 mg Moher, Liliane 325 mg ASPIRIN given in lab by Liliane Boles RN via Subcutaneous. Ordered by Amador Zelaya Medication (Drip) Medication Time Given Dosage/Unit Concentration/Unit Diluent (ml) Solution IV Solutions 07/01/2017 8:28:41 AM 0 mL (IV) 500 NaCl .9 IV Solutions given in lab by Babatunde June RN in Left Forearm via Peripheral IV. Pump/Drip Flow = 20 m l/hr using NaCl .9. Ordered by Amador Zelaya Initial Case Assessment Cardiovascular HR NIBP 73 147/44 Edema Present Skin color Skin None Normal Warm Dry Circulatory - Right Pulses Dorsalis Pedis Femoral 1 1 Scale (0,1,2,3,4,d) Circulatory - Left Pulses Dorsalis Pedis Femoral 1 1 Scale (0,1,2,3,4,d) Neurological State Oriented to time-place- Alert Moves all extremities person Respiration - General Respiration Rate SpO2 (%) (B/min) 15 100 Final Case Assessment Cardiovascular HR NIBP 79 154/57 Edema Present Skin color Skin None Normal Warm Dry Circulatory - Right Pulses Dorsalis Pedis Femoral 1 1 Scale (0,1,2,3,4,d) Circulatory - Left Pulses Dorsalis Pedis Femoral 1 1 Scale (0,1,2,3,4,d) Neurological State Oriented to time-place- Alert Moves all extremities person Respiration - General Respiration Rate SpO2 (%) (B/min) 14 100 Chronological Log Time Study Chronological Log 8:22:04 Patient arrived via Bed. 8:22:05 Patient Name, D.O.B, / Armband Verified By R.N. 8:22:06 Consent signed by the physician and the patient and verified by the [facility] staff. 8:25:56 Pre-op and post- op instructions given; patient acknowledges understanding of instructions. 8:25:58 NO Skin Breakdown- 8:25:58 Patient has been NPO for More than 6Hrs. Vitals capture started with the following parameters, Patient=Adult, Interval=5 min, Initial Pr zjdixb=123 mmHg, 8:26:05 Deflation Rate=5 mmHg, Cuff placed on Left Arm 8:26:48 HR=74 bpm, FRQE=948/44 mmhg, YxO2=873.0 %, Resp=15 B/min, Pain=0, Damian=10, Sanders=2 8:28:23 A # 20 IV was noted in the Forearm (left). Grade = 0 IV Solutions given in lab by Babatunde June RN in Left Forearm via Peripheral IV. Pump/Drip Flow = 20 ml/hr using NaCl .9. 8:28:41 Ordered by Amador Zelaya 8:29:21 History and physical on the chart or being dictated. Assessment: Initial Case, HR=73 BPM, TQMW=092/44 mmhg, Edema=None, Color=Normal, Skin = Warm, D ry Right Pulses: Narciso Ped=1, Femoral=1 8:29:22 Left Pulses: Narciso Ped=1, Femoral=1 Neurological: State=Alert, Ox3, MCCONNELL Respiration: Resp=15 B/min, WtM5=180 % 8:29:38 Reference ECG taken 8:31:45 HR=71 bpm, XFDC=938/57 mmhg, KiL6=608.0 %, Resp=13 B/min, Pain=0, Damian=10, Sanders=2 8:36:44 HR=72 bpm, NKWB=440/57 mmhg, EcB2=164.0 %, Resp=14 B/min, Pain=0, Damian=10, Sanders=2 8:41:47 HR=71 bpm, INVB=655/48 mmhg, RwM8=973.0 %, Resp=14 B/min, Pain=0, Damian=10, Sanders=2 8:43:00 Bilateral groins prepped with 2% chlorhexidine, and draped after a 3 minute waiting time. 8:43:23 Pressure channel 1 zeroed. 8:46:46 HR=71 bpm, XHJC=216/48 mmhg, HvZ5=701.0 %, Resp=16 B/min, Pain=0, Damian=10, Sanders=2 Time Out. Correct patient, correct procedure, correct physician, power injector not loaded with contrast with surgical 8:49:15 team present. Time Out Concurred by MD and individual staff in procedure. 50 mcg FENTANYL given in lab by Liliane Boles, AMBROCIO in Left Forearm via Peripheral IV. Ordered by Amador Zelaya 8:49:16 G. 8:49:25 Case Start 20 mL 1% XYLOCAINE given in lab by Amador Zelaya in Right Groin via Subcutaneous. Ordered by Garcia 8:50:28 Amador Baumann. 8:51:45 HR=71 bpm, MGNT=045/47 mmhg, MaH5=984.0 %, Resp=17 B/min, Pain=0, Damian=10, Sanders=2 8:52:17 Access site was Right Femoral Artery. A INTRODUCER SET, MICROPUNCTURE, STIFFENED FR 5 was advanced into the Fem Art (right) using the Modified 8:52:26 Seldinger technique. A SHEATH, FR5 TERUMO (10CM) FR 5 was exchanged in the Fem Art (right). This was necessary in ord er to achieve 8:52:54 vascular hemostasis. 8:54:04 Access site was Right Femoral Vein. 8:54:26 A SHEATH, FR7 TERUMO (10CM) FR 7 was advanced into the Fem Vein (right) using the Modified S eldinger technique. 8:55:04 A CATHETER, FR.7 BALLOON WEDGE PRESSURE FR 7 was inserted via Fem Vein (right) 8:55:37 An injection in the Fem Art (right) was made through the SHEATH, FR5 TERUMO (10CM) FR 5. 8:56:48 HR=72 bpm, MZNC=799/47 mmhg, JaF2=998.0 %, Resp=20 B/min, Pain=0, Damian=10, Sanders=2 Recorded Pressure: PCW, HR=72, Condition=Condition 1 8:59:19 (Pulmonary Capillary Wedge) PCW 1318/9 Recorded Pressure: MPA, HR=72, Condition=Condition 1 9:00:37 (Main Pulmonary Artery) MPA 45/12/ Recorded Pressure: RV, HR=73, Condition=Condition 1 9:01:34 (Right Ventricle) RV 49/1/6 9:01:47 HR=73 bpm, LFLY=205/47 mmhg, EeA8=536.0 %, Resp=15 B/min, Pain=0, Damian=10, Sanders=2 Recorded Pressure: RA, HR=71, Condition=Condition 1 9:02:07 (Right Atrium) RA 7 9:02:54 Saturation: Site=Ao (Aorta) , O2=95.8 %, Hgb=9.8 gm/dl, Condition=Condition 1. Used in calcu lation. 9:03:13 Saturation: Site=PA (Pulmonary Artery) , O2=80.2 %, Hgb=9.8 gm/dl, Condition=Condition 1. ed in calculation. 9:03:32 [place] Daniel Catheter Removed 9:04:04 Saturation: Site=RA (Right Atrium) , O2=81.4 %, Hgb=9.8 gm/dl, Condition=Condition 1. Used i n calculation. A JL 4.0 INFINITI CATHETER FR 5 was advanced over a wire. OMNIPAQUE, 350 MG, 150ML 150ML was use d for 9:04:41 injections. Recorded Pressure: LV, HR=72, Condition=Condition 1 9:05:40 (Left Ventricle) LV 154/2/8 Recorded Pressure: LV, Ao, HR=72, Condition=Condition 1 9:05:51 (Left Ventricle) LV 157/1/7, (Aorta) Ao 148/53/90 Recorded Pressure: Ao, HR=72, Condition=Condition 1 9:06:18 (Aorta) Ao 143/53/88 9:06:46 HR=71 bpm, NCRL=215/48 mmhg, CaT8=964.0 %, Resp=18 B/min, Pain=0, Damian=10, Sanders=2 9:07:02 The RCA was injected and visualized at various angles. OMNIPAQUE, 350 MG, 150ML 150ML used. After removing the current catheter a JL 4.0 INFINITI CATHETER FR 5 was advanced over a WIRE, 3M MJ .035 180CM 9:08:11 180CM. 9:10:14 The LCA was injected and visualized at various angles. OMNIPAQUE, 350 MG, 150ML 150ML used. 9:11:45 HR=77 bpm, SPUL=465/56 mmhg, YuT4=751.0 %, Resp=20 B/min 5000 units HEPARIN given in lab by Liliane Boles RN in Left Forearm via Peripheral IV. Ordered by Amador Zelaya 9:13:08 G. 9:13:41 A WIRE, 3MMJ .035 180CM 180CM was inserted via Fem Art (right). 9:13:47 Catheter was removed A SHEATH, FR6 TERUMO (10CM) FR 6 was exchanged in the Fem Art (right). This was necessary in ord er to 9:13:49 accomodate a larger catheter. 9:14:16 0.5 mg VERSED given in lab by Liliane Boles RN in Left Forearm via Peripheral IV. Ordered by Amador Zelaya A EBU 3.5 Z2 GUIDE CATHETER FR 6 was advanced over a wire. OMNIPAQUE, 350 MG, 150ML 150ML was us ed for 9:15:07 injections. 9:16:50 HR=76 bpm, DDZK=236/48 mmhg, YxH7=673.0 %, Resp=17 B/min, Pain=0, Damian=10, Sanders=2 9:18:01 A WIRE, 3MMJ .035 180CM 180CM was inserted via Fem Art (right). 9:18:37 Wire removed 9:19:56 A WIRE, BALANCE MIDDLEWEIGHT 190CM 190CM was inserted via Fem Art (right). 9:21:29 Interventional wire has crossed the lesion 9:21:45 HR=78 bpm, UVEK=279/53 mmhg, JqF6=550.0 %, Resp=17 B/min, Pain=0, Damian=10, Sanders=2 9:22:50 Activated Clotting Time Drawn A BALLOON, 2.0 X 15MM EUPHORA 15MM was inserted over WIRE, BALANCE MIDDLEWEIGHT 190CM 190CM via the 9:23:50 LAD Mid. 25 mcg FENTANYL given in lab by Liliane Boles RN in Left Forearm via Peripheral IV. Ordered by Amador Zelaya 9::27 G. A BALLOON, 2.0 X 15MM EUPHORA 15MM over a WIRE, BALANCE MIDDLEWEIGHT 190CM 190CM in the LAD Mid was 9:25:16 inflated using a 30 KIMI INDEFLATOR at 14 kimi for 20 sec. 9::22 0.5 mg VERSED given in lab by Liliane Boles RN in Left Forearm via Peripheral IV. Ordered by Amador Zelaya ::34 Balloon Removed. 9:26:48 HR=77 bpm, UIRT=080/55 mmhg, MuJ2=446.0 %, Resp=16 B/min, Pain=0, Damian=10, Sanders=2 A STENT, 2.5 22MM NOLBERTO 2.5 22MM was advanced through a EBU 3.5 Z2 GUIDE CATHETER FR 6 over a WIR E, 9::34 BALANCE MIDDLEWEIGHT 190CM 190CM. A STENT, 2.5 22MM NOLBERTO 2.5 22MM was deployed using a 30 KIMI INDEFLATOR at 12 atmospheres for 25 seconds in 9:29:00 the LAD Mid. 9:29:05 ACT (Normal Range 90-180) = 345 9:29:39 Delivery device removed A BALLOON, 2.5 X 15MM NC EUPHORA 15MM was inserted over WIRE, BALANCE MIDDLEWEIGHT 190CM 190CM v ia 9:31:12 the LAD Mid. 9:31:47 HR=79 bpm, VJZT=027/65 mmhg, NtQ9=569.0 %, Resp=16 B/min, Pain=0, Damian=10, Sanders=2 A BALLOON, 2.5 X 15MM NC EUPHORA 15MM over a WIRE, BALANCE MIDDLEWEIGHT 190CM 190CM in the LAD M id 9:32:15 was inflated using a 30 KIMI INDEFLATOR at 12 kimi for 15 sec. 10 mg HYDRALAZINE given in lab by Liliane Boles RN in Left Forearm via Peripheral IV. Ordered by Garcia :32:49 Amador Flores A BALLOON, 2.5 X 15MM NC EUPHORA 15MM over a WIRE, BALANCE MIDDLEWEIGHT 190CM 190CM in the LAD M id 9:33:08 was inflated using a 30 KIMI INDEFLATOR at 18 kimi for 15 sec. 9:36:25 Wire removed 9:36:53 HR=79 bpm, AUXU=404/55 mmhg, OkB4=887.0 %, Resp=17 B/min, Pain=0, Damian=10, Sanders=2 9:38:51 A WIRE, 3MMJ .035 180CM 180CM was inserted via Fem Art (right). 9:39:01 Catheter was removed 9:39:14 Activated Clotting Time Drawn A 3D GUIDE CATHETER FR 6 was advanced over a wire. OMNIPAQUE, 350 MG, 150ML 150ML was used for 9:39:52 injections. 9:41:54 HR=79 bpm, QCXI=644/52 mmhg, SpO2=99.0 %, Resp=18 B/min, Pain=0, Damian=10, Sanders=2 9:42:27 A WIRE, BALANCE MIDDLEWEIGHT 190CM 190CM was inserted via Fem Art (right). 9:43:54 Wire removed 9:44:03 A WIRE, BALANCE MIDDLEWEIGHT 190CM 190CM was inserted via Fem Art (right). 9:44:56 ACT (Normal Range 90-180) = 326 A BALLOON, 2.0 X 15MM EUPHORA 15MM was inserted over WIRE, BALANCE MIDDLEWEIGHT 190CM 190CM via the 9:46:45 RCA Mid. 9:46:53 HR=79 bpm, KDGX=147/55 mmhg, SpO2=99.0 %, Resp=19 B/min, Pain=0, Damian=10, Sanders=2 A BALLOON, 2.0 X 15MM EUPHORA 15MM over a WIRE, BALANCE MIDDLEWEIGHT 190CM 190CM in the RCA Mid was 9:47:46 inflated using a 30 KIMI INDEFLATOR at 10 kimi for 25 sec. A BALLOON, 2.0 X 15MM EUPHORA 15MM over a WIRE, BALANCE MIDDLEWEIGHT 190CM 190CM in the RCA Mid was 9:49:01 inflated using a 30 KIMI INDEFLATOR at 12 kimi for 20 sec. 9:50:03 Balloon Removed. A STENT, 2.25 22MM NOLBERTO 2.25 22MM was advanced through a 3DRC GUIDE CATHETER FR 6 over a WIRE, BALANCE 9:50:33 MIDDLEWEIGHT 190CM 190CM. 9:51:56 HR=74 bpm, AHRM=624/49 mmhg, SpO2=99.0 %, Resp=18 B/min, Pain=0, Damian=10, Sanders=2 A STENT, 2.25 22MM NOLBERTO 2.25 22MM was deployed using a 30 KIMI INDEFLATOR at 12 atmospheres for 30 seconds 9:52:27 in the RCA Mid. 9:53:37 Delivery device removed A BALLOON, 2.25 X 12MM NC EUPHORA 12MM was inserted over WIRE, BALANCE MIDDLEWEIGHT 190CM 190CM via 9:54:29 the RCA Mid. A BALLOON, 2.25 X 12MM NC EUPHORA 12MM over a WIRE, BALANCE MIDDLEWEIGHT 190CM 190CM in the RCA Mid 9:56:37 was inflated using a 30 KIMI INDEFLATOR at 12 kimi for 12 sec. A BALLOON, 2.25 X 12MM NC EUPHORA 12MM over a WIRE, BALANCE MIDDLEWEIGHT 190CM 190CM in the RCA Mid 9:57:06 was inflated using a 30 KIMI INDEFLATOR at 16 kimi for 10 sec. 9:57:32 HR=78 bpm, NIOC=879/58 mmhg, SpO2=99.0 %, Resp=17 B/min, Pain=0, Damian=10, Sanders=2 A BALLOON, 2.25 X 12MM NC EUPHORA 12MM over a WIRE, BALANCE MIDDLEWEIGHT 190CM 190CM in the RCA Mid 9:57:32 was inflated using a 30 KIMI INDEFLATOR at 16 kimi for 15 sec. 9:57:59 Balloon Removed. 100 mcg NTG (IC) given in lab by Amador Zelaya in Right Groin via Intra-coronary. Ordered by Amador Zelaya 9:58:45 G. 10:00:07 Balloon Removed. 10:00:43 Wire removed 10:00:47 A WIRE, 3MMJ .035 180CM 180CM was inserted via Fem Art (right). 10:00:53 Catheter was removed 10:01:46 Case End PCI QA completed: Pre-Antione - 3, Post Antione - 3, Type - ~TYPE~, Length - 20 mm, Morphology - ~MOR PHOLOGY~, 10:01:50 Indications - ~INDICATIONS~, Pre-Stenosis - 70% and Post Stenosis - 0%. 10:01:51 PCI QA obtained from Making Department Preparer 10:01:54 HR=78 bpm, VDJZ=342/50 mmhg, EeX9=495.0 %, Resp=13 B/min, Pain=0, Damian=10, Sanders=2 10:02:25 Catheter(s) removed without difficulty 10::27 In the Fem Art (right) the SHEATH, FR6 TERUMO (10CM) FR [address] by Amador Zelaya. 10:02:29 In the Fem Vein (right) the SHEATH, FR7 TERUMO (10CM) FR [address] by Amador Zelaya PCI QA completed: Pre-Antione - 3, Post Antione - 3, Type - ~TYPE~, Length - 20 mm, Morphology - ~MOR PHOLOGY~, 10:03:08 Indications - ~INDICATIONS~, Pre-Stenosis - 90% and Post Stenosis - 0%. 180 mg BRILINTA given in lab by Liliane Boles, RN in Left Forearm via Peripheral IV. Ordered b Amador Boyle 10:03:21 G. 10:03:40 Sterile dressing applied to site 10:03:42 No case complications noted. 10:04:34 325 mg ASPIRIN given in lab by Liliane Boles, RN via Subcutaneous. Ordered by Catarina Zelaya 10:06:49 HR=79 bpm, XDUJ=281/56 mmhg, XaX7=284.0 %, Resp=17 B/min, Pain=0, Damian=10, Sanders=2 10:07:33 Sterile dressing applied to site 10:07:36 No case complications noted. 10:08:02 Cine recording checked. 10:11:54 HR=79 bpm, RCBF=444/57 mmhg, PcN6=664.0 %, Resp=14 B/min 10:19:15 Patient moved to stretcher Assessment: Final Case, HR=79 BPM, ULKR=553/57 mmhg, Edema=None, Color=Normal, Skin = Warm, Dr y Right Pulses: Narciso Ped=1, Femoral=1 10:20:29 Left Pulses: Narciso Ped=1, Femoral=1 Neurological: State=Alert, Ox3, MCCONNELL Respiration: Resp=14 B/min, HwU6=524 % End Study - Contrast Media Used In Study Contrast Total Opened (mL) Total Used (mL) Total Wasted (mL) Omnipaque 120 120 0 End Study - Maximum Contrast Load Max Contrast Load (mL) 76.8 End Study - Radiation Exposure Fluoro Time (minutes) 14.5 End Study - Patient Disposition Complications Transferred To Interventional Outcome No Telemetry Bed successful
[2017-07-01] MEDS ORDERED: ALBUTEROL SULFATE 90 MCG/ACT HFA 8 GM INHALER INH PRN (10:30)
[2017-07-01] MEDS ORDERED: oxyCODONE/ACETAMINOPHEN 10 MG/325 MG TAB PO PRN (10:30)
[2017-07-01] MEDS ORDERED: ACETAMINOPHEN 325 MG TAB PO PRN (10:30)
[2017-07-01] MEDS ORDERED: ONDANSETRON HCL 4 MG/2 ML VIAL IV PUSH PRN (10:30)
[2017-07-01] MEDS ORDERED: oxyCODONE/ACETAMINOPHEN 5 MG/325 MG TAB PO PRN (10:30)
[2017-07-01] MEDS ORDERED: ATROPINE SULFATE 1 MG/ML VIAL IV PUSH PRN (11:15)
[2017-07-01] MEDS ORDERED: MORPHINE SULFATE 4 MG/ML INJ IV PUSH PRN (11:30)
[2017-07-01] MEDS ORDERED: MISC INFORMATION XX ONE (12:00)
--- NOTE | 2017-07-01 19:57 | EKG ---
Date Performed: 07/01/2017 Time Performed: 08:03:38 PTAGE: 56 years EKG: Sinus rhythm . Normal ECG PREVIOUS TRACING : 08/19/2016 02.29 Since the prior tracing, there has been no significant mckoy DOCTOR: Miley Upton Interpretating Date/Time 07/01/2017 19:56:16
[2017-07-01] MEDS: METOPROLOL TARTRATE 25 MG TAB PO SCH (20:24)
[2017-07-01] MEDS ORDERED: NON-FORMULARY DRUG (Omeprazole 20 MG) PO SCH (21:00)
[2017-07-01] MEDS ORDERED: PRAVASTATIN SOD 40 MG TAB PO SCH (21:00)
[2017-07-01] MEDS: BUMETANIDE 1 MG TAB PO SCH (21:02)
[2017-07-01] MEDS: hydrALAZINE HCL 100 MG TAB PO SCH (21:10)
[2017-07-02] VITALS (14 sets, daily range): BP systolic 137–187; BP diastolic 55–70; PULSE 68–75; RESP 16–20; TEMP 98.4–98.8; O2SAT 98–100
[2017-07-02] MEDS ORDERED: TICAGRELOR 90 MG TAB PO ONE (01:30)
[2017-07-02] MEDS: TACROLIMUS 5 MG CAP PO SCH ×2 (01:31→11:53)
[2017-07-02 05:49] LABS: AUTOMATED NEUTROPHIL # 6.3 TH/MM3 (1.8-7.7); BASOPHIL # 0.1 TH/MM3 (0-0.2); BASOPHIL % 0.7 % (0.0-2.0); EOSINOPHIL # 0.1 TH/MM3 (0-0.4); EOSINOPHIL % 1.3 % (0.0-4.0); HEMATOCRIT 27.2 % (35.0-46.0); HEMOGLOBIN 8.7 GM/DL (11.6-15.3); LYMPH % 14.5 % (9.0-44.0); LYMPHOCYTE # 1.2 TH/MM3 (1.0-4.8); MEAN CELL VOLUME 68.2 FL (80.0-100.0); MEAN CORPUSCULAR HEMOGLOBIN 21.7 PG (27.0-34.0); MEAN CORPUSCULAR HGB CONC 31.8 % (32.0-36.0); MEAN PLATELET VOLUME 8.1 FL (7.0-11.0); MONO % 8.3 % (0.0-8.0); MONOCYTE # 0.7 TH/MM3 (0-0.9); NEUT % 75.2 % (16.0-70.0); PLATELET COUNT 273 TH/MM3 (150-450); RED CELL DISTRIBUTION WIDTH 16.9 % (11.6-17.2); WHITE BLOOD COUNT 8.4 TH/MM3 (4.0-11.0)
[2017-07-02 06:15] LABS: BICARBONATE 22.7 MEQ/L (21.0-32.0); CALCIUM 8.9 MG/DL (8.5-10.1); CREATININE 5.38 MG/DL (0.50-1.00)
[2017-07-02] MEDS: METOPROLOL TARTRATE 25 MG TAB PO SCH (08:17)
[2017-07-02] MEDS: hydrALAZINE HCL 100 MG TAB PO SCH (08:18)
[2017-07-02] MEDS: BUMETANIDE 1 MG TAB PO SCH (08:19)
[2017-07-02] MEDS ORDERED: predniSONE 5 MG TAB PO SCH (09:00)
[2017-07-02] MEDS ORDERED: TICAGRELOR 90 MG TAB PO SCH (09:00)
[2017-07-02] MEDS ORDERED: LOSARTAN 50 MG TAB PO SCH (09:00)
[2017-07-02] MEDS ORDERED: ASPIRIN 81 MG CHEW TAB PO SCH (09:00)
[2017-07-02] MEDS ORDERED: NIFEdipine 60 MG SUSTAINED RELEASE TAB PO SCH (09:00)
[2017-07-02] MEDS ORDERED: MYCOPHENOLATE MOFETIL 500 MG TAB PO SCH (09:00)
[2017-07-02] MEDS ORDERED: DOXAZOSIN MESYLATE 4 MG TAB PO SCH (09:00)
[2017-07-02] MEDS ORDERED: BRIL90TA PO (09:03)
[2017-07-02] MEDS ORDERED: ASPI81 PO (09:03)
[2017-07-02] MEDS ORDERED: METO25TA3 PO (09:03)
--- NOTE | 2017-07-02 11:36 | MA ---
cc: AMADOR PRECIADO DO DATE 07/01/2017 PROCEDURE Left heart catheterization, coronary angiogram, right heart catheterization, moderate sedation 45 minutes, ysabel drug-eluting stent (2.5 x 22) to LAD, ysabel drug-eluting stent (2.25 x 22) to the RCA. PREPROCEDURE DIAGNOSIS Abnormal stress test for possible renal transplant. POSTPROCEDURE DIAGNOSIS Coronary artery disease status post ysabel drug-eluting stent (2.5 x 22) to the LAD, ysabel drug-eluting stent (2.25 x 22) to the RCA. MEDICATIONS 1. Fentanyl 75 mcg. 2. Versed 1 mg. 3. Heparin 5000 units. 4. Hydralazine 10 mg. 5. Nitro sublingual 0.4 mg 6. Brilinta 180 mg. 7. Aspirin 324 mg. CONTRAST 150 cc. FLUOROSCOPY 14.5 minutes ANESTHESIA Moderate sedation 45 minutes ESTIMATED BLOOD LOSS 10 CC PROCEDURAL SUMMARY Kiara Martin is a pleasant 56-year-old female who sees my partner Dr. Le in the office and underwent stress testing before renal transplant which was abnormal. Because of this, she was recommended cardiac catheterization. Risks, benefits and alternatives were explained to her and she consented as such. She was brought to the lab and prepped in the usual sterile fashion. Right femoral artery was accessed using a modified Seldinger technique and placement of a 5-Gambian sheath. Right femoral vein was accessed using a modified Seldinger technique and placement of a 7-Gambian sheath. Both were easily aspirated and flushed. A [place]-Daniel catheter was advanced up the femoral vein to a wedge position with pressures as well as oxygen saturations recorded on pullback throughout the heart. [place]-Daniel catheter was removed. The JR-4 was advanced up the femoral artery to the ascending aorta and across the aortic valve for measurement of left ventricular pressure. This was pulled back across the aortic valve showing no significant gradient of aortic stenosis. JR-4 was used for selective angiography of the right coronary artery system. This was exchanged out for a JL-4 which was used for selective angiography of the left coronary artery system. Because of the significance of the lesion and the patient wanting to undergo renal transplant, I fell it was appropriate to fix both lesions. Please see notes below for intervention. FINDINGS Left main normal sized vessel with 20 disease ostially. It bifurcates into an LAD and circumflex. LAD is a normal-sized vessel with mild luminal irregularities throughout the proximal portion. In the midportion, there is a 70% stenosis. Distally, no significant disease. It gives off two diagonals with no significant disease. Left circumflex is a normal sized vessel with mild luminal irregularities throughout. Gives off two obtuse marginales with no significant disease. RCA is a small to moderate sized vessel with diffuse 80% disease throughout the midportion. Distally, the vessel is a dominant vessel with no significant disease. HEMODYNAMIC RESULTS RA 4. RV 49/1. RVEDP 6. PA 45/12, mean PA 26. Wedge 9. LVEDP 7. INTERVENTION As the patient plans to undergo renal transplant, I felt it reasonable to intervene on both lesions. The right femoral artery sheath was exchanged for a 6-Gambian sheath. The patient was given heparin as an anticoagulant. An EBU 3.5 guide catheter was then advanced into the left main. A BMW wire was advanced down the LAD. A compliant balloon (2 x 15) was used to predilate the lesion. An ysabel drug-eluting stent (2.5 x 22) was then inflated over the lesion. This was postdilated with a noncompliant balloon (2.5 x 15). Final angiogram shows a well opposed stent with no perforations or dissections. The guide was exchanged for a 3DRC guide. A BMW wire was advanced into the distal portion of the RCA. A compliant balloon (2 x 15) was used to predilate the lesion. An ysabel drug-eluting stent (2.25 x 22) was inflated over the lesion. This was postdilated with a noncompliant balloon (2.25 x 12). Final angiogram shows a well-opposed stent with no perforations or dissections. Wire and guide were removed. Sheaths were sutured in place with a plan to remove once ACT's were in an appropriate range. The patient was loaded with 180 mg of Brilinta. 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 IMPRESSIONS 1. Abnormal stress test. 2. End-stage renal disease for possible renal transplant. 3. Coronary artery disease status post ysabel drug-eluting stent (2.5 x 22) to the LAD, ysabel drug-eluting stent (2.25 x 22) to the RCA. RECOMMENDATIONS 1. Ms. Martin underwent PCI as above and will be started on aspirin and Brilinta therapy. She will continue on statin therapy and beta aggie therapy will be added. 2. She will be watched overnight and if stable discharged in the morning for dialysis outpatient. 3. At this time, she will have to put off her renal transplant for most likely a year. Thank you for allowing me to see Kiara Martin. If there are any questions, please do not hesitate to call. Amador Preciado DO VGP/DJL /12:00 AM /11:15 AM
--- NOTE | 2017-07-02 17:28 | PD.CARD.PN ---
Subjective Subjective Remarks Doing well, no complaints No chest pain/SOB Objective Medications Current Medications Vancomycin HCl (Vancomycin Inj) 500 mg STK-MED ONCE .ROUTE ; Start 07/01/17 at 07:49; Stop 07/01/17 at 07:50; Status DC Metoprolol Tartrate (Lopressor Inj) 5 mg STK-MED ONCE .ROUTE ; Start 07/01/17 at 07:49; Stop 07/01/17 at 07:50; Status DC Lidocaine HCl (Xylocaine-Mpf 1% Inj) 30 ml STK-MED ONCE .ROUTE ; Start 07/01/17 at 07:49; Stop 07/01/17 at 07:50; Status DC Heparin Sodium/ Sodium Chloride 2,000 ml @ As Directed STK-MED ONCE IV FLUSH Last administered on 07/01/17at 08:27; Start 07/01/17 at 08:27; Stop 07/01/17 at 08:28; Status DC Midazolam HCl (Versed Inj) 2 mg STK-MED ONCE .ROUTE Last administered on at 09:25; Start 07/01/17 at 08:28; Stop 07/01/17 at 08:29; Status DC Fentanyl Citrate (fentaNYL INJ) 100 mcg STK-MED ONCE .ROUTE Last administered on 07/01/17at 08:49; Start 07/01/17 at 08:28; Stop 07/01/17 at 08:29; Status DC Heparin Sodium (Porcine) (Heparin Inj) 10,000 units STK-MED ONCE .ROUTE Last administered on 07/01/17at 09:13; Start 07/01/17 at 09:11; Stop 07/01/17 at 09:12 ; Status DC Hydralazine HCl (Apresoline Inj) 20 mg STK-MED ONCE .ROUTE Last administered on 07/01/17at 09:32; Start 07/01/17 at 09:31; Stop 07/01/17 at 09:32; Status DC Aspirin (Aspirin Chew) 324 mg STK-MED ONCE .ROUTE Last administered on at 10:04; Start 07/01/17 at 09:51; Stop 07/01/17 at 09:52; Status DC Ticagrelor (Brilinta) 180 mg STK-MED ONCE PO Last administered on 2/22/18at 10: 03; Start 07/01/17 at 09:51; Stop 07/01/17 at 09:52; Status DC Nitroglycerin 5 ml @ As Directed STK-MED ONCE .ROUTE Last administered on at 09:59; Start 07/01/17 at 10:00; Stop 07/01/17 at 10:01; Status DC Ondansetron HCl (Zofran Inj) 4 mg STK-MED ONCE .ROUTE ; Start 07/01/17 at 10:08 ; Stop 07/01/17 at 10:09; Status DC Nitroglycerin (Nitrostat Sl (Adm Override)) 0.4 mg STK-MED ONCE SL ; Start 07/01 at 10:13; Stop 07/01/17 at 10:14; Status DC Albuterol Sulfate (Proair Hfa Inh) 2 puff Q4HR NEB PRN INH SHORTNESS OF BREATH ; Start 07/01/17 at 10:30; Stop 07/02/17 at 12:49; Status DC Bumetanide (Bumetanide) 2 mg BID PO Last administered on 07/02/17at 08:19; Start 07/01/17 at 21:00; Stop 07/02/17 at 12:49; Status DC Doxazosin Mesylate (Cardura) 4 mg DAILY PO Last administered on 07/02/17at 08:18 ; Start 07/02/17 at 09:00; Stop 07/02/17 at 12:49; Status DC Hydralazine HCl (Apresoline) 100 mg BID PO Last administered on 07/02/17at 08:18 ; Start 07/01/17 at 21:00; Stop 07/02/17 at 12:49; Status DC Losartan Potassium (Cozaar) 50 mg DAILY PO Last administered on 07/02/17at 08:18 ; Start 07/02/17 at 09:00; Stop 07/02/17 at 12:49; Status DC Pravastatin Sodium (Pravachol) 40 mg HS PO Last administered on 07/01/17at 21:01 ; Start 07/01/17 at 21:00; Stop 07/02/17 at 12:49; Status DC Mycophenolate Mofetil (Cellcept) 500 mg DAILY PO Last administered on at 08:18; Start 07/02/17 at 09:00; Stop 07/02/17 at 12:49; Status DC Nifedipine (Procardia Xl) 60 mg DAILY PO Last administered on 07/02/17at 08:18; Start 07/02/17 at 09:00; Stop 07/02/17 at 12:49; Status DC Prednisone (Deltasone) 5 mg DAILY PO Last administered on 07/02/17at 08:17; Start 07/02/17 at 09:00; Stop 07/02/17 at 12:49; Status DC Tacrolimus (Prograf) 5 mg Q12H PO Last administered on 07/02/17at 11:53; Start 07/01/17 at 12:00; Stop 07/02/17 at 12:49; Status DC Non-Formulary Medication 20 mg BID PO ; Start 07/01/17 at 21:00; Status UNV Acetaminophen (Tylenol) 325 mg Q4H PRN PO PAIN SCALE 1 TO 2 Last administered on 07/01/17at 20:24; Start 07/01/17 at 10:30; Stop 07/02/17 at 12:49; Status DC Oxycodone/ Acetaminophen (Percocet 5-325 Mg) 1 tab Q4H PRN PO PAIN SCALE 3 TO 5; Start 07/01/17 at 10:30; Stop 07/02/17 at 12:49; Status DC Oxycodone/ Acetaminophen (Percocet 10-325 Mg) 1 tab Q4H PRN PO PAIN SCALE 6 TO 10; Start 07/01/17 at 10:30; Stop 07/02/17 at 12:49; Status DC Morphine Sulfate (Morphine Inj) 2 mg Q30M PRN IV PUSH BREAKTHROUGH PAIN Last administered on 07/01/17at 20:55; Start 07/01/17 at 11:30; Stop 07/02/17 at 12:49 ; Status DC Aspirin (Aspirin Chew) 81 mg DAILY PO Last administered on 07/02/17at 08:16; Start 07/02/17 at 09:00; Stop 07/02/17 at 12:49; Status DC Ticagrelor (Brilinta) 90 mg BID PO Last administered on 07/02/17at 08:17; Start 07/02/17 at 09:00; Stop 07/02/17 at 12:49; Status DC Miscellaneous Information 1 ONCE ONCE XX ; Start 07/01/17 at 12:00; Stop at 12:01; Status DC Atropine Sulfate (Atropine Inj) 0.5 mg UNSCH PRN IV PUSH VAGAL REPONSE; Start 07/01/17 at 11:15; Stop 07/02/17 at 12:49; Status DC Ondansetron HCl (Zofran Inj) 4 mg Q4H PRN IV PUSH NAUSEA Last administered on at 20:55; Start 07/01/17 at 10:30; Stop 07/02/17 at 12:49; Status DC Metoprolol Tartrate (Lopressor) 12.5 mg BID PO Last administered on 07/02/17at 08:17; Start 07/01/17 at 21:00; Stop 07/02/17 at 12:49; Status DC Iohexol (OMNIPAQUE 350 INJ (Botany Laboratory Assistant)) 100 ml STK-MED ONCE OTHER ; Start at 06:58; Stop 07/01/17 at 12:46; Status DC Iohexol (OMNIPAQUE 350 INJ (Botany Laboratory Assistant)) 50 ml STK-MED ONCE OTHER ; Start at 06:58; Stop 07/01/17 at 12:46; Status DC Ticagrelor (Brilinta) 90 mg NOW ONCE PO Last administered on 07/02/17at 01:32; Start 07/02/17 at 01:30; Stop 07/02/17 at 01:31; Status DC Vital Signs / I&O Vital Signs Date Time Temp Pulse Resp B/P (MAP) Pulse Ox O2 Delivery O2 Flow Rate FiO2 07/02/17 11:00 98.8 72 16 137/55 (82) 98 07/02/17 11:00 72 07/02/17 10:00 70 07/02/17 09:30 163/59 (93) 07/02/17 09:00 72 07/02/17 08:00 71 07/02/17 07:15 98.4 75 18 187/70 (109) 100 07/02/17 07:00 72 07/02/17 06:00 72 07/02/17 05:00 70 07/02/17 04:14 71 07/02/17 03:33 98.6 69 16 143/62 (89) 100 2/23/18 03:00 73 07/02/17 01:17 68 07/02/17 00:00 68 07/02/17 00:00 98.6 70 20 158/62 (94) 100 07/01/17 20:00 68 07/01/17 20:00 98.7 68 20 156/58 (90) 100 07/01/17 18:00 70 I/O 07/01/17 07/01/17 07/01/17 07/02/17 07/02/17 07/02/17 06:59 14:59 22:59 06:59 14:59 22:59 Intake Total 240 ml 240 ml Output Total 100 ml Balance 240 ml 140 ml Intake Oral 240 ml 240 ml Output Urine Total 100 ml Physical Exam GENERAL: NAD, AAOx3 SKIN: Warm and dry. HEAD: Atraumatic. Normocephalic. EYES: Pupils equal and round. No scleral icterus. No injection or drainage. ENT: No nasal bleeding or discharge. Mucous membranes pink and moist. NECK: Trachea midline. No JVD. CARDIOVASCULAR: Regular rate and rhythm. RESPIRATORY: No accessory muscle use. Clear to auscultation. Breath sounds equal bilaterally. GASTROINTESTINAL: Abdomen soft, non-tender, nondistended. Hepatic and splenic margins not palpable. MUSCULOSKELETAL: Extremities without clubbing, cyanosis, or edema. No obvious deformities. Right femoral no hematoma/ecchymosis, distal pulses intact NEUROLOGICAL: Awake and alert. No obvious cranial nerve deficits. Motor grossly within normal limits. Five out of 5 muscle strength in the arms and legs. Normal speech. PSYCHIATRIC: Appropriate mood and affect; insight and judgment normal. Laboratory Laboratory Tests Test 07/02/17 05:22 White Blood Count 8.4 TH/MM3 Red Blood Count 4.00 MIL/MM3 Hemoglobin 8.7 GM/DL Hematocrit 27.2 % Mean Corpuscular Volume 68.2 FL Mean Corpuscular Hemoglobin 21.7 PG Mean Corpuscular Hemoglobin Concent 31.8 % Red Cell Distribution Width 16.9 % Platelet Count 273 TH/MM3 Mean Platelet Volume 8.1 FL Neutrophils (%) (Auto) 75.2 % Lymphocytes (%) (Auto) 14.5 % Monocytes (%) (Auto) 8.3 % Eosinophils (%) (Auto) 1.3 % Basophils (%) (Auto) 0.7 % Neutrophils # (Auto) 6.3 TH/MM3 Lymphocytes # (Auto) 1.2 TH/MM3 Monocytes # (Auto) 0.7 TH/MM3 Eosinophils # (Auto) 0.1 TH/MM3 Basophils # (Auto) 0.1 TH/MM3 CBC Comment DIFF FINAL Differential Comment Blood Urea Nitrogen 26 MG/DL Creatinine 5.38 MG/DL Random Glucose 95 MG/DL Calcium Level 8.9 MG/DL Sodium Level 135 MEQ/L Potassium Level 4.3 MEQ/L Chloride Level 103 MEQ/L Carbon Dioxide Level 22.7 MEQ/L Anion Gap 9 MEQ/L Estimat Glomerular Filtration Rate 10 ML/MIN Assessment and Plan Problem List: (1) CAD (coronary artery disease) ICD Codes: I25.10 - Atherosclerotic heart disease of [place] coronary artery without angina pectoris (2) Abnormal stress test ICD Codes: R94.39 - Abnormal result of other cardiovascular function study (3) Kidney transplanted ICD Codes: Z94.0 - Status post kidney transplant Status: Acute (4) Acute on chronic kidney failure ICD Codes: N17.9 - [id number] renal failure; N18.9 - Chronic kidney disease, unspecified Status: Acute (5) CKD (chronic kidney disease) ICD Codes: N18.9 - Chronic kidney disease Status: Chronic (6) HARTMAN (dyspnea on exertion) ICD Codes: R06.09 - Dyspnea on exertion Status: Acute Assessment and Plan 1) Abnormal stress test/CP/SOB for anticipated renal transplant Status post ysabel drug-eluting stent (2.5 x 22) to the LAD, ysabel drug-eluting stent (2.25 x 22) to the RCA. ASA/Brilinta, discussed if Brilinta too expensive will call to change to Plavix Add BB therapy Con't statin/ARB 2) Cardiovascularly stable for discharge 3) Will follow up with Dr. Le 4) Will have to plan to hold off on renal transplant for most likely 1 year Amador Zelaya DO Jul 02, 2017 17:28
== END 2017-07-02 12:48 | disposition home or self-care (01) ==
LOC: HCAT 06:57 → HDIC 06:58 → HCIS 15:10 → HCAT 07-02 12:48
PROVIDERS: ATTEND Nuclear Medicine Nuclear Cardiology
DX: I25.10 Atherosclerotic heart disease of native coronary artery without angina pectoris (principal); I12.0 Hypertensive chronic kidney disease with stage 5 chronic kidney disease or end stage renal disease; E11.22 Type 2 diabetes mellitus with diabetic chronic kidney disease; N18.6 End stage renal disease; E83.42 Hypomagnesemia; D64.9 Anemia, unspecified; I82.509 Chronic embolism and thrombosis of unspecified deep veins of unspecified lower extremity; B37.3 Candidiasis of vulva and vagina; E78.5 Hyperlipidemia, unspecified; K21.9 Gastro-esophageal reflux disease without esophagitis; R06.02 Shortness of breath; Z99.2 Dependence on renal dialysis; Z86.73 Personal history of transient ischemic attack (TIA), and cerebral infarction without residual deficits
CPT/HCPCS: 80048; 82810; 85002; 85025; 85347; 85610; 85730; 92928; 92929; 93005; 93460; 99152; 99153; C1725; C1769; C1874; C1893; J0360; J1644; J2250; J2270; J2405; J3010; J3370; J7507; J7512; J7517; Q9967

== ENCOUNTER 2017-10-27 06:26 | Inpatient (IN) | payer MEDICARE, OTHER ==
[~2017-10-27] VITALS: Ht 157.5 cm; Wt 67.0 kg
[2017-10-27] VITALS (15 sets, daily range): BP systolic 118–231; BP diastolic 42–98; PULSE 75–113; RESP 16–20; TEMP 98.3–98.8; O2SAT 79–100
[~2017-10-27 06:26] MED LIST changes: +ASPI81 PO; +BRIL90TA PO; +BUME2TAB PO; +CARD4TAB2 PO; +CLEO1GEL TOPICAL; -DOXA4TAB3 PO; +LOSA50TA PO; -METO100T PO; +METO25TA3 PO; +OMEP20TA93 PO; -OMEP40CA2 PO; +PRED10 PO; -PRED5TAB PO; -TACR1 PO; +TACR5CAP PO
[2017-10-27] MEDS ORDERED: NIFE20 PO (06:41)
[2017-10-27] MEDS ORDERED: SUCR5CHW PO (06:41)
[2017-10-27] MEDS ORDERED: CINA30 PO (06:41)
[2017-10-27] MEDS ORDERED: [UNRECOGNIZED DRUG - OTHER] (06:41)
[2017-10-27] MEDS ORDERED: NITROGLYCERIN-D5W 50 MG/250 ML 250 ML IV ONE (06:45)
--- NOTE | 2017-10-27 07:03 | PD ---
HPI Chief Complaint: Chest Pain Time Seen by Provider: 06:31 Travel History International Travel<30 days: No Contact w/Intl Traveler<30days: No Traveled to known affect area: No History of Present Illness HPI The patient is a 56 year old female who presents to the [facility] emergency department with a history of chest pain that she reports has been intermittently occurring over the last week. The patient reports that it occurs each night around 3 AM. She reports that it began again this evening and awoke her from sound sleep. On the prior occasions it was relieved with a single nitroglycerin, however on this occasion it required 3 separate nitroglycerin tablets and continue to be present. The patient reports that she called ambulance services and upon ambulance services arrival the patient's blood pressure was noted to be 248 systolic. The patient is a hemodialysis patient. The patient is on dialysis on Wednesday, Wednesday, Wednesday. She missed her Wednesday dialysis session due to a in the family. The patient has a history of coronary artery disease. The patient last had stents placed in June 2017. She reports that she ran out of 1 of her blood pressure medications, losartan a week ago. She denies having any headache or neck pain. She reports that with the chest pain she has had some mild shortness of breath. The patient reports that the pain is in the center of her chest. She reports that it is a throbbing sensation. She denies having any diaphoresis, nausea, vomiting associated with this. She reports that she did have a single episode of diarrhea yesterday. She denies having any blood in her stool or black or tarry stools. On review of systems otherwise, the patient denies having any recent cough or congestion, fevers or chills , abdominal pain, or neurologic symptoms. [facility] Past Medical History Narrative Medical The patient's past medical history is significant for chronic renal failure on hemodialysis, history of diabetes mellitus, hypertension, depression and anxiety , chronic back pain, multiple upper extremity DVTs, chronic bronchitis, osteoarthritis, acid reflux, hyperlipidemia. Arthritis: Yes Asthma: No Blood Disorders: No Heart Rhythm Problems: No Cancer: No Cardiovascular Problems: Yes (CVA) High Cholesterol: Yes Chest Pain: No Congestive Heart Failure: No COPD: No Cerebrovascular Accident: Yes Diabetes: Yes Patient Takes Glucophage: No Dialysis: No Diminished Hearing: No Endocrine: No Gastrointestinal Disorders: Yes (GERD/REFLUX) GERD: Yes Glaucoma: No Genitourinary: Yes (TRANSPLANT) Headaches: No Hepatitis: No Hiatal Hernia: No Hypertension: Yes Immune Disorder: No Implanted Vascular Access Dvce: Yes (AV FISTULA r ARM/old left) Musculoskeletal: No Neurologic: Yes (WEAKNESS DUE TO RECENT HOSPITALIZATION) Psychiatric: No Reproductive: No Respiratory: Yes Integumentary: No Migraines: No Myocardial Infarction: No Renal Failure: Yes (SECONDARY TO A VIRUS PER PT/RENAL TRANSPLANT) Seizures: Yes Sleep Apnea: Yes Thyroid Disease: No Ulcer: No Tetanus Vaccination: Never Vaccinated Influenza Vaccination: Yes Menopausal: Yes : 1 Para: 0 Miscarriage: 1 : 0 Past Surgical History Narrative Surgical The patient's past surgical history is significant for a renal transplant in 2009 that failed in 2016 requiring her going back on hemodialysis, history of Vas-Cath placement and removal, history of aVF placement x2. Abdominal Surgery: No AICD: No Appendectomy: No Cardiac Surgery: No Cholecystectomy: No Ear Surgery: No Endocrine Surgery: No Eye Surgery: No Genitourinary Surgery: Yes (LEFT KIDNEY TRANSPLANT) Gynecologic Surgery: No Joint Replacement: No Oral Surgery: No Pacemaker: No Thoracic Surgery: Yes Other Surgery: Yes (VAS-CATH PLACEMENT (RIGHT CHEST)/REMOVED) Social History Alcohol Use: No Tobacco Use: No Substance Use: No Allergies-Medications (Allergen,Severity, Reaction): Coded Allergies: pantoprazole (Unverified Allergy, Severe, Seizures, 04/13/17) penicillin G (Unverified Allergy, Severe, Seizures, 04/13/17) Reported Meds & Prescriptions Reported Meds & Active Scripts Active Tgt Aspirin (Aspirin) 81 Mg Chw 81 Mg PO DAILY Metoprolol Tartrate 25 Mg Tab 12.5 Mg PO BID 25mg tablet, 1/2 tab (12.5mg) BID Brilinta (Ticagrelor) 90 Mg Tab 90 Mg PO BID Lovastatin 40 Mg Tab 40 Mg PO HS Triamcinolone Topical (Triamcinolone Acetonide) 0.1% Lotn 1 Applic TOPICAL TID Reported [lidocainprilo] Sensipar (Cinacalcet) 30 Mg Tab 30 Mg PO DAILY Velphoro (Sucroferric Oxyhydroxide) 500 Mg Chew 500 Mg PO DAILY Nifedipine 20 Mg Cap 60 Mg PO BID Ventolin Hfa 18 GM Inh (Albuterol Sulfate) 90 Mcg/Act Aer 2 Puff INH Q4-6H PRN Tacrolimus 5 Mg Cap 5 Mg PO QOD take every other day Prednisone 10 Mg Tab 5 Mg PO DAILY Omeprazole 20 Mg Tab 40 Mg PO BID Losartan (Losartan Potassium) 50 Mg Tab 50 Mg PO DAILY Hydralazine (Hydralazine HCl) 100 Mg Tab 100 Mg PO TID Take with meals Cardura (Doxazosin Mesylate) 4 Mg Tab 4 Mg PO DAILY Bumetanide 2 Mg Tab 2 Mg PO DAILY Review of Systems Except as stated in HPI: all other systems reviewed are Neg General / Constitutional: No: Fever Eyes: No: Visual changes HENT: No: Headaches, Congestion Cardiovascular: Positive: Chest Pain or Discomfort, Dyspnea on exertion, No: Palpitations, Diaphoresis Respiratory: No: Cough, Shortness of Breath Gastrointestinal: No: Nausea, Vomiting, Diarrhea, Abdominal Pain Genitourinary: No: Dysuria Musculoskeletal: No: Pain Skin: No Rash Neurologic: No: Weakness, Focal Abnormalities, Headache, Change in Mentation, Slurred Speech, Sensory Disturbance Psychiatric: No: Depression Endocrine: No: Polydipsia Hematologic/Lymphatic: No: Easy Bruising Physical Exam Narrative General: The patient is a well-developed well-nourished female in no acute distress. Head and Neck exam: Head is normocephalic atraumatic. Eyes: EOMI, pupils are equal round and reactive to light. Nose: Midline septum with pink mucous membranes Mouth: Dentition unremarkable. Moist mucus membranes. Posterior oropharynx is not erythematous. No tonsillar hypertrophy. Uvula midline. Airway patent. Neck: No palpable lymphadenopathy. No nuchal rigidity. No thyromegaly. Cardiovascular: Sinus tachycardia in the low 100s with a 1/6 systolic murmur, no gallops or rubs. No pulse deficit to the extremities on simultaneous auscultation and palpation of her radial artery. Lungs: Clear to auscultation bilaterally. No wheezes, rhonchi, or rales. Abdomen: Soft, without tenderness to palpation in all 4 quadrants of the abdomen. No guarding, rebound, or rigidity. Normal bowel sounds are audible. No tenderness on palpation of McBurney's point. Negative Chand sign. Extremities: No clubbing or cyanosis. The patient has trace to 1+ lower extremity edema worse in the left leg compared to the right. She reports that her left leg is always more swollen than the right. 2+ pulses in all 4 extremities. No calf tenderness on palpation. Back: No spinous process tenderness to palpation. No costovertebral angle tenderness to palpation. Neurologic Exam: Grossly nonfocal. Skin Exam: No rash noted. Intact skin that is warm and dry. Data Data Last Documented VS Vital Signs Date Time Temp Pulse Resp B/P (MAP) Pulse Ox O2 Delivery O2 Flow Rate FiO2 10/27/17 07:01 100 200/88 (125) 99 Room Air 10/27/17 06:28 98.7 20 Orders Orders Electrocardiogram (10/27/17 06:32) Complete Blood Count With Diff (10/27/17 06:32) Comprehensive Metabolic Panel (10/27/17 06:32) Creatine Kinase (Cpk) (10/27/17 06:32) Ckmb (Isoenzyme) Profile (10/27/17 06:32) Troponin I (10/27/17 06:32) B-Type Natriuretic Peptide (10/27/17 06:32) Prothrombin Time / Inr (Pt) (10/27/17 06:32) Act Partial Throm Time (Ptt) (10/27/17 06:32) Lipase (10/27/17 06:32) Magnesium (Mg) (10/27/17 06:32) Chest, Single Ap (10/27/17 06:32) Iv Access Insert/Monitor (10/27/17 06:32) Ecg Monitoring (10/27/17 06:32) Oximetry (10/27/17 06:32) Nitroglycerin-D5w 50 Mg/250 Ml (Nitrogly (10/27/17 06:45) MDM Medical Decision Making Medical Screen Exam Complete: Yes Emergency Medical Condition: Yes Medical Record Reviewed: Yes Differential Diagnosis Acute coronary syndrome, versus hypertensive emergency, versus aortic dissection , versus acid reflux, versus anxiety disorder Narrative Course During the course of the patient's emergency department visit, the patient's history, examination, and differential diagnosis were reviewed with the patient. The patient was placed on a gambling monitor with oximetry and frequent blood pressure monitoring. The patient had IV access obtained and blood work sent for analysis. The patient had an EKG done on arrival. The patient's EKG reveals a sinus tachycardia rate of 106, QRS duration 94 ms, QTC [address] segment elevation is noted. T waves are inverted in V1. The patient was initially provided sublingual nitroglycerin x1 by ambulance services followed by aspirin 162 mg p.o. as the patient took 162 mg earlier today. The patient was started on nitroglycerin by drip. The patient was started on 100 mcg which will be titrated to obtain a blood pressure of 20% reduction of the systolic blood pressure down to 185. The patient's laboratory studies and imaging studies are pending at the conclusion of my shift. The patient's case will be checked out to the oncoming physician to disposition based on the conclusion of the patient's workup. I anticipate that the patient will be admitted to the hospital for continued evaluation and treatment. Diagnosis Primary Impression: Chest pain, rule out acute myocardial infarction Additional Impression: Hypertensive emergency Admitting Information Admitting Physician Requests: Gloria Moffett MD Oct 27, 2017 07:03
--- NOTE | 2017-10-27 07:15 | RADRPT ---
EXAM DATE: 10/27/2017 7:02 AM EDT AGE/SEX: 56 years / Female INDICATIONS: Chest pain. CLINICAL DATA: This is the patient's initial encounter. Patient reports that signs and symptoms have been present for 1 day and indicates a pain score of 2/10. MEDICAL/SURGICAL HISTORY: Diabetes mellitus type II. Hypertension. CVA Coronary artery stent. Renal transplant 2009. Right arm AV fistula. Vas - Cath for hemodialysis COMPARISON: [facility] [place], CHEST SINGLE AP, 08/19/2016. . FINDINGS: Portable AP view of the chest demonstrates a normal-sized cardiac silhouette. Multiple EKG lines over lie the patient. No effusion, consolidation, or pneumothorax is identified. The bones and soft tissue s demonstrate no acute finding. CONCLUSION: No acute cardiopulmonary abnormality is identified. Electronically signed by: Lucian Fernandez MD 10/27/2017 7:13 AM EDT
[2017-10-27 07:23] LABS: AUTOMATED NEUTROPHIL # 5.7 TH/MM3 (1.8-7.7); BASOPHIL % 0.5 % (0.0-2.0); EOSINOPHIL # 0.1 TH/MM3 (0-0.4); EOSINOPHIL % 1.7 % (0.0-4.0); HEMATOCRIT 35.9 % (35.0-46.0); HEMOGLOBIN 11.1 GM/DL (11.6-15.3); LYMPH % 14.6 % (9.0-44.0); LYMPHOCYTE # 1.1 TH/MM3 (1.0-4.8); MEAN CELL VOLUME 67.3 FL (80.0-100.0); MEAN CORPUSCULAR HEMOGLOBIN 20.8 PG (27.0-34.0); MEAN CORPUSCULAR HGB CONC 30.9 % (32.0-36.0); MEAN PLATELET VOLUME 8.9 FL (7.0-11.0); MONO % 8.8 % (0.0-8.0); MONOCYTE # 0.7 TH/MM3 (0-0.9); NEUT % 74.4 % (16.0-70.0); PLATELET COUNT 316 TH/MM3 (150-450); RED BLOOD COUNT 5.32 MIL/MM3 (4.00-5.30); RED CELL DISTRIBUTION WIDTH 18.9 % (11.6-17.2); WHITE BLOOD COUNT 7.7 TH/MM3 (4.0-11.0)
[2017-10-27 07:27] LABS: PROTHROMBIN TIME - PATIENT 10.4 SEC (9.8-11.6)
[2017-10-27 07:37] LABS: ALBUMIN 3.3 GM/DL (3.4-5.0); AST (GOT) 10 U/L (15-37); BICARBONATE 14.8 MEQ/L (21.0-32.0); BLOOD UREA NITROGEN 68 MG/DL (7-18); CALCIUM 8.7 MG/DL (8.5-10.1); CHLORIDE 110 MEQ/L (98-107); CREATININE 8.85 MG/DL (0.50-1.00); GLOMERULAR FILTRATION RATE 6 ML/MIN (>89); GLUCOSE,RANDOM 123 MG/DL (74-106); MAGNESIUM 1.7 MG/DL (1.5-2.5); SODIUM (NA) 141 MEQ/L (136-145)
--- NOTE | 2017-10-27 07:40 | PD ---
Physical Exam Narrative Please see Dr. Handy's note for full history and physical. Received signout for follow-up on lab results and admission. Patient currently on cardiopulmonary monitor and on nitro gtt, resting comfortably in stretcher and states that she feels much better without chest pain. Awaiting lab results. Data Data Last Documented VS Vital Signs Date Time Temp Pulse Resp B/P (MAP) Pulse Ox O2 Delivery O2 Flow Rate FiO2 10/27/17 08:14 104 176/75 10/27/17 07:01 99 Room Air 10/27/17 06:28 98.7 20 Orders Orders Electrocardiogram (10/27/17 06:32) Complete Blood Count With Diff (10/27/17 06:32) Comprehensive Metabolic Panel (10/27/17 06:32) Creatine Kinase (Cpk) (10/27/17 06:32) Ckmb (Isoenzyme) Profile (10/27/17 06:32) Troponin I (10/27/17 06:32) B-Type Natriuretic Peptide (10/27/17 06:32) Prothrombin Time / Inr (Pt) (10/27/17 06:32) Act Partial Throm Time (Ptt) (10/27/17 06:32) Lipase (10/27/17 06:32) Magnesium (Mg) (10/27/17 06:32) Chest, Single Ap (10/27/17 06:32) Iv Access Insert/Monitor (10/27/17 06:32) Ecg Monitoring (10/27/17 06:32) Oximetry (10/27/17 06:32) Nitroglycerin-D5w 50 Mg/250 Ml (Nitrogly (10/27/17 06:45) Admit Order (Ed Use Only) (10/27/17 08:14) Labs Laboratory Tests Test 10/27/17 06:40 White Blood Count 7.7 TH/MM3 Red Blood Count 5.32 MIL/MM3 Hemoglobin 11.1 GM/DL Hematocrit 35.9 % Mean Corpuscular Volume 67.3 FL Mean Corpuscular Hemoglobin 20.8 PG Mean Corpuscular Hemoglobin Concent 30.9 % Red Cell Distribution Width 18.9 % Platelet Count 316 TH/MM3 Mean Platelet Volume 8.9 FL Neutrophils (%) (Auto) 74.4 % Lymphocytes (%) (Auto) 14.6 % Monocytes (%) (Auto) 8.8 % Eosinophils (%) (Auto) 1.7 % Basophils (%) (Auto) 0.5 % Neutrophils # (Auto) 5.7 TH/MM3 Lymphocytes # (Auto) 1.1 TH/MM3 Monocytes # (Auto) 0.7 TH/MM3 Eosinophils # (Auto) 0.1 TH/MM3 Basophils # (Auto) 0.0 TH/MM3 CBC Comment DIFF FINAL Differential Comment Prothrombin Time 10.4 SEC Prothromb Time International Ratio 1.0 RATIO Activated Partial Thromboplast Time 31.0 SEC Blood Urea Nitrogen 68 MG/DL Creatinine 8.85 MG/DL Random Glucose 123 MG/DL Total Protein 7.0 GM/DL Albumin 3.3 GM/DL Calcium Level 8.7 MG/DL Magnesium Level 1.7 MG/DL Alkaline Phosphatase 145 U/L Aspartate Amino Transf (AST/SGOT) 10 U/L Alanine Aminotransferase (ALT/SGPT) 11 U/L Total Bilirubin 0.3 MG/DL Sodium Level 141 MEQ/L Potassium Level 4.4 MEQ/L Chloride Level 110 MEQ/L Carbon Dioxide Level 14.8 MEQ/L Anion Gap 16 MEQ/L Estimat Glomerular Filtration Rate 6 ML/MIN Total Creatine Kinase 71 U/L Troponin I 0.17 NG/ML B-Type Natriuretic Peptide 165 PG/ML Lipase 190 U/L MDM Supervised Visit with VIKI: No Interpretation(s) Labs: Elevated BUN, creatinine, and anion gap, glucose, alk phos, troponin, BNP Last Impressions Chest X-Ray 10/27/17 0632 Signed Impressions: CONCLUSION: No acute cardiopulmonary abnormality is identified. Narrative Course 0757: Call placed for admit team. 0819: Patient admitted to [facility]. Diagnosis Primary Impression: Chest pain, rule out acute myocardial infarction Additional Impression: Hypertensive emergency Admitting Information Admitting Physician Requests: Admit Condition: Stable Maria T Mcgee MD Oct 27, 2017 07:40
[2017-10-27 07:42] LABS: ALKALINE PHOSPHATASE 145 U/L (45-117); ALT (GPT) 11 U/L (10-53); TOTAL BILIRUBIN ADULT 0.3 MG/DL (0.2-1.0); TROPONIN I 0.17 NG/ML (0.02-0.05)
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
[2017-10-27] MEDS ORDERED: SODIUM CHLORIDE 0.9% FLUSH 10 ML FLUSH IV FLUSH PRN ×3 (08:45→10:00)
[2017-10-27] MEDS ORDERED: SODIUM CHLORIDE 0.9% FLUSH 10 ML FLUSH IV FLUSH SCH (09:00)
[2017-10-27] MEDS ORDERED: ALBUTEROL SULFATE 90 MCG/ACT HFA 8 GM INHALER INH PRN (09:15)
[2017-10-27] MEDS ORDERED: predniSONE 10 MG TAB PO SCH (09:15)
[2017-10-27] MEDS ORDERED: TACROLIMUS 5 MG CAP PO SCH (09:15)
[2017-10-27] MEDS ORDERED: ACETAMINOPHEN 500 MG CPLT PO PRN (09:30)
[2017-10-27] MEDS ORDERED: MORPHINE SULFATE 4 MG/ML INJ IV PUSH PRN (09:45)
[2017-10-27] MEDS ORDERED: SODIUM CHLOR 0.9% 1000 ML INJ 1,000 ML IV PRN (09:55)
[2017-10-27] MEDS ORDERED: SODIUM CHLOR 0.9% 1000 ML INJ 1,000 ML OTHER PRN ×2 (09:55)
[2017-10-27] MEDS ORDERED: GENTAMICIN SULFATE 20 MG/2 ML VIAL OTHER PRN (10:00)
[2017-10-27] MEDS ORDERED: MANNITOL 12.5 GM/50 ML VIAL IV PRN (10:00)
[2017-10-27] MEDS ORDERED: NITROGLYCERIN 0.4 MG SL 25 TABS/BTL SL PRN (10:00)
[2017-10-27] MEDS ORDERED: diphenhydrAMINE HCL 25 MG CAP PO PRN (10:00)
[2017-10-27] MEDS ORDERED: ACETAMINOPHEN 325 MG TAB PO PRN (10:00)
[2017-10-27] MEDS ORDERED: ONDANSETRON ODT 4 MG TAB SL PRN (10:00)
[2017-10-27] MEDS ORDERED: HEPARIN SODIUM - IV 10,000 UNITS/10 ML VIAL PRN (10:00)
[2017-10-27] MEDS ORDERED: HEPARIN SODIUM - IV 10,000 UNITS/10 ML VIAL IV FLUSH PRN (10:00)
[2017-10-27] MEDS ORDERED: cloNIDine HCL 0.1 MG TAB PO PRN (10:00)
--- NOTE | 2017-10-27 10:17 | RADRPT ---
EXAM DATE: 10/27/2017 9:59 AM EDT AGE/SEX: 56 years / Female INDICATIONS: High blood pressure. CLINICAL DATA: This is the patient's initial encounter. Patient reports that signs and symptoms have been present for 1 day and indicates a pain score of 0/10. MEDICAL/SURGICAL HISTORY: Stroke. Hypertension. Cardiovascular disease. Seizures, diabetes. Non e. RADIATION DOSE: 36.46 CTDI (mGy) COMPARISON: [facility], CT BRAIN W/O CONTRAST, 08/19/2016. . TECHNIQUE: CT of the head without contrast. Using automated exposure control and adjustment of the mA and/or kV according to patient size, radiation dose was kept as low as reasonably achievable to ob tain optimal diagnostic quality images. DICOM format image data is available electronically for revi ew and comparison. FINDINGS: Cerebrum: The ventricles are normal for age. No evidence of midline shift, mass lesion, hemorrhage o r acute infarction. No extraaxial fluid collections are seen. Posterior Fossa: The cerebellum and brainstem are intact. The 4th ventricle is midline. The cerebe llopontine angle is unremarkable. Extracranial: The visualized portion of the orbits is intact. Skull: The calvaria is intact. No evidence of skull fracture. CONCLUSION: 1. No acute intracranial abnormality. Electronically signed by: Alek Arechiga MD 10/27/2017 10:16 AM EDT
[2017-10-27] MEDS ORDERED: BISACODYL 10 MG SUPP RECTAL PRN (10:45)
[2017-10-27] MEDS ORDERED: DOCUSATE SODIUM 50 MG/SENNA 8.6 MG TAB PO PRN (10:45)
[2017-10-27] MEDS ORDERED: LOPERAMIDE HCL 2 MG CAP PO PRN (10:45)
[2017-10-27] MEDS ORDERED: MAGNESIUM HYDROXIDE SUSP 30 ML CUP PO PRN (10:45)
[2017-10-27] MEDS ORDERED: SENNOSIDES 8.6 MG TAB PO PRN (10:45)
[2017-10-27] MEDS: NITROGLYCERIN-D5W 50 MG/250 ML 250 ML IV PRN ×8 (11:25→20:00)
[2017-10-27] MEDS: MORPHINE SULFATE 4 MG/ML INJ IV PUSH PRN ×2 (11:53→13:43)
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
[2017-10-27] MEDS ORDERED: LOSARTAN 50 MG TAB PO SCH (13:00)
[2017-10-27 13:18] LABS: TROPONIN I 1.06 NG/ML (0.02-0.05)
--- NOTE | 2017-10-27 13:46 | EKG ---
Date Performed: 10/27/2017 Time Performed: 06:35:47 PTAGE: 56 years EKG: SINUS TACHYCARDIA ABNORMAL RHYTHM ECG NO PREVIOUS TRACING DOCTOR: Jose Kirk Interpretating Date/Time 10/27/2017 13:46:01
--- NOTE | 2017-10-27 14:48 | MB ---
cc: Mina Alvarado MD DATE: 10/27/2017 DATE OF : 1960 REASON FOR CONSULTATION: Chest pain. HISTORY OF PRESENT ILLNESS: The patient is a 56-year-old female, followed in our office by Dr. Edgar Le, with a history of diabetes, end-stage renal disease, coronary artery disease, CVA, hypertension, who presented to the hospital with a several-day history of intermittent chest pain. Last week, she had 2 episodes of substernal chest discomfort described as "pressure" awakening her from sleep at about 3 a.m. each time. She took sublingual nitroglycerin with gradual relief of her symptoms after a few minutes. Last night she had recurrent chest discomfort, again around 3 a.m., without associated shortness of breath, nausea or diaphoresis. She took sublingual nitroglycerin with relief of her symptoms, but the chest discomfort recurred about an hour later. None of her episodes have occurred during the daytime, except for this afternoon when she had an episode of substernal chest discomfort lasting a few minutes, again without associated shortness of breath, nausea or diaphoresis. The patient denies pleurisy, shortness of breath, palpitations, lightheadedness, syncope, near-syncope, change in chronic intermittent pedal edema. She reports compliance with her medications. PAST MEDICAL HISTORY: 1. Diabetes. 2. End-stage renal disease with history of kidney transplant in 2009, which eventually failed in 2016. 3. Gastroesophageal reflux disease. 4. Cerebrovascular accident. 5. Hyperlipidemia. 6. Hypertension. 7. Coronary artery disease, status post stent of the mid LAD 07/02/2017, with a 2.5 x 22 mm Resolute Grzegorz stent by Dr. Amador Zelaya. At that time, she also underwent stent of the mid right coronary artery with a 2.25 x 22 mm Resolute Grzegorz stent. CARDIAC MEDICATIONS AT HOME: 1. Aspirin 81 mg daily. 2. Metoprolol tartrate 12.5 mg b.i.d. 3. Brilinta 90 mg b.i.d. 4. Lovastatin 40 mg at bedtime. 5. Nifedipine 60 mg b.i.d. 6. Losartan 50 mg daily. 7. Hydralazine 100 mg t.i.d. 8. Cardura 4 mg daily. 9. Bumex 2 mg daily. ALLERGIES: PANTOPRAZOLE AND PENICILLIN. FAMILY HISTORY: Noncontributory. SOCIAL HISTORY: The patient denies any history of alcohol or tobacco abuse. REVIEW OF SYSTEMS: As in the History Of Present Illness, otherwise negative or noncontributory. She also denies headache, abdominal pain, melena, dyspepsia, bright red blood per rectum, recent flu symptoms. PHYSICAL EXAMINATION: VITAL SIGNS: Blood pressure 174/74 with a pulse of 90, respirations 18. GENERAL: She is a well-developed, well-nourished female in no acute distress. HEENT/NECK: Jugular venous pressure is normal. Carotid pulses are 2+ bilaterally and without bruits. CHEST: Reveals clear lungs galeana. CARDIAC: She has a regular rhythm and rate with a grade 2/6 systolic ejection murmur heard throughout the precordium. The S2 heart sound is normal. No gallop is audible. ABDOMEN: She has a soft, nontender abdomen. Bowel sounds are present. There is no definite hepatosplenomegaly. EXTREMITIES: Reveals no clubbing, cyanosis or edema. LABORATORY DATA: Includes troponin 1.06, CK 71. BUN 68, creatinine 8.85, potassium 4.4. Troponin 0.17. INR 1.0. WBC 7.7, hemoglobin 11.1, platelets 316. Chest x-ray shows no acute disease. EKG shows sinus tachycardia, otherwise normal EKG. IMPRESSION: Overall atypical chest pains in this 56-year-old female with a history of coronary artery disease, status post percutaneous coronary intervention about 4 months ago, history of diabetes, end-stage renal disease, cerebrovascular accident, hypertension. Troponin level is slightly increased, although it is difficult to interpret in the setting of renal insufficiency. Creatine kinase levels are negative for myocardial infarction. Electrocardiogram showed no acute ST segment or T-wave changes. Clinical suspicion for pulmonary embolism or aortic dissection is low. Overall I doubt she has developed acute stent thrombosis without acute EKG changes, though it is certainly possible. Her blood pressure was elevated on presentation (230/97), now improved, although still suboptimal. She does report compliance with her medications and a no added salt diet. RECOMMENDATIONS: 1. Check a Lexiscan nuclear stress test. We will followup as needed for any ischemia demonstrated on nuclear stress testing imaging. 2. We will leave optimization of her multidrug antihypertensive regimen to the medical team. MD AYESHA Mehta/VEE , 02:07 PM , 02:46 PM CHUCKIE
[2017-10-27] MEDS ORDERED: MORPHINE SULFATE 8 MG/ML INJ IV PUSH ONE (15:15)
[2017-10-27] MEDS ORDERED: REGADENOSON INJ 0.4 MG/5 ML SYR IV ONE (18:08)
[2017-10-27] MEDS: HEPARIN SODIUM - SQ 10,000 UNITS/ML VIAL SQ SCH (19:00)
--- NOTE | 2017-10-27 19:35 | RADRPT ---
EXAM DATE: 10/27/2017 7:07 PM EDT AGE/SEX: 56 years / Female INDICATIONS:Angina. . Chest pain for 2 weeks. CLINICAL DATA: This is the patient's initial encounter. Patient reports that signs and symptoms have been present for 2 weeks and indicates a pain score of 5/10. MEDICAL/SURGICAL HISTORY: Hypercholesterolemia. Diabetes mellitus type II. Renal failure, chr onic. Hypertension. None. COMPARISON: No prior exams available for comparison. DOSE: 26.3 mCi Tc 99m Myoview at stress 8.5 mCi [id number] at rest 0.4 mg Lexiscan STRESS SYMPTOMS: Short of breath. EJECTION FRACTION: 55 % TECHNIQUE: The patient underwent pharmacologic stress with infusion of prescribed dose. Continuous ECG tracing was monitored during stress. Gated SPECT imaging was performed after stress and conventi onal SPECT imaging was performed at rest. The examination was performed on a SPECT/CT scanner, both attenuation and non-corrected datasets were reviewed. FINDINGS: Distribution: The maximum perfused segment at stress is in the wall. Perfusion Study: Large matched defect involving the apex. No reversible perfusion defects. Gated Study: There are intact wall motion and wall thickening however there is a dyskinetic segment towards the apex/inferior wall. The ejection fraction is calculated at 55%. RISK CATEGORY: Intermediate (1-3 % Annual Mortality Rate) CONCLUSION: 1. 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 2. No reversible perfusion defects to suggest ischemia. 3. Ejection fraction 55%. Electronically signed by: Ashish Soriano MD 10/27/2017 7:33 PM EDT
[2017-10-27] MEDS: ALBUMIN 25% INJ 100 ML IV PRN ×2 (20:00→21:00)
[2017-10-27] MEDS: SEVELAMER CARBONATE 800 MG TAB PO SCH (20:24)
[2017-10-27] MEDS ORDERED: OMEPRAZOLE 40 MG PO SCH (21:00)
[2017-10-27] MEDS: SODIUM CHLORIDE 0.9% FLUSH 10 ML FLUSH IV FLUSH SCH (21:00)
[2017-10-27] MEDS ORDERED: METOPROLOL TARTRATE 25 MG TAB PO SCH (21:00)
[2017-10-27 21:35] LABS: PHOSPHORUS 5.5 MG/DL (2.5-4.9)
[2017-10-27 22:21] LABS: TROPONIN I 0.72 NG/ML (0.02-0.05)
[2017-10-27] MEDS: EPOETIN ALFA 10,000 UNITS/ML VIAL IV PUSH PRN (22:50)
[2017-10-27] MEDS: GELATIN 12 MM/7 MM FOAM TOP PRN (23:08)
[2017-10-27] MEDS: TICAGRELOR 90 MG TAB PO SCH (23:22)
[2017-10-27] MEDS: PRAVASTATIN SOD 40 MG TAB PO SCH (23:22)
[2017-10-28] VITALS (12 sets, daily range): BP systolic 117–172; BP diastolic 55–73; PULSE 66–79; RESP 16–18; TEMP 98.1–98.6; O2SAT 92–99
[2017-10-28] MEDS: HEPARIN SODIUM - SQ 10,000 UNITS/ML VIAL SQ SCH ×3 (05:02→18:09)
[2017-10-28 05:11] LABS: AUTOMATED NEUTROPHIL # 6.3 TH/MM3 (1.8-7.7); BASOPHIL % 0.4 % (0.0-2.0); EOSINOPHIL % 0.4 % (0.0-4.0); HEMATOCRIT 29.5 % (35.0-46.0); HEMOGLOBIN 9.3 GM/DL (11.6-15.3); LYMPH % 11.2 % (9.0-44.0); LYMPHOCYTE # 0.9 TH/MM3 (1.0-4.8); MEAN CELL VOLUME 66.1 FL (80.0-100.0); MEAN CORPUSCULAR HEMOGLOBIN 20.9 PG (27.0-34.0); MEAN CORPUSCULAR HGB CONC 31.6 % (32.0-36.0); MEAN PLATELET VOLUME 8.6 FL (7.0-11.0); MONO % 10.5 % (0.0-8.0); MONOCYTE # 0.9 TH/MM3 (0-0.9); NEUT % 77.5 % (16.0-70.0); PLATELET COUNT 274 TH/MM3 (150-450); RED BLOOD COUNT 4.46 MIL/MM3 (4.00-5.30); RED CELL DISTRIBUTION WIDTH 18.6 % (11.6-17.2); WHITE BLOOD COUNT 8.2 TH/MM3 (4.0-11.0)
[2017-10-28 05:23] LABS: ALBUMIN 3.5 GM/DL (3.4-5.0); BICARBONATE 18.3 MEQ/L (21.0-32.0); CALCIUM 8.8 MG/DL (8.5-10.1); CREATININE 6.03 MG/DL (0.50-1.00); PHOSPHORUS 5.1 MG/DL (2.5-4.9)
[2017-10-28] MEDS ORDERED: TACROLIMUS 1 MG CAP PO SCH (06:00)
[2017-10-28] MEDS: SEVELAMER CARBONATE 800 MG TAB PO SCH ×3 (07:57→17:12)
--- NOTE | 2017-10-28 08:22 | HHI.NPPN ---
Subjective Interval History patient had dialysis yesterday. 4 Liters removed in dialysis. BP is high. Cardiology on the case, nuclear stress test has been done. Apparently negative. Review of Systems General Constitutional: Fatigue Cardiovascular Cardiac: Chest Pain Objective Data Data Vital Signs Date Time Temp Pulse Resp B/P (MAP) Pulse Ox O2 Delivery O2 Flow Rate FiO2 10/28/17 07:53 99 Room Air 10/28/17 07:52 72 10/28/17 07:51 98.5 72 18 172/73 (106) 99 10/28/17 03:00 66 10/28/17 03:00 98.5 66 16 156/66 (96) 99 10/28/17 03:00 99 Room Air 10/27/17 23:00 99 Nasal Cannula 2.00 10/27/17 23:00 98.3 79 16 125/58 (80) 99 10/27/17 23:00 75 10/27/17 22:00 73 125/53 10/27/17 21:20 72 124/51 10/27/17 21:08 99 Nasal Cannula 2.00 10/27/17 20:45 74 117/46 18 20:30 76 116/46 18 20:15 73 119/47 10/27/17 20:00 75 119/46 10/27/17 20:00 75 119/46 18 19:45 76 117/47 18 19:30 73 118/49 18 19:15 76 119/46 10/27/17 19:00 99 Nasal Cannula 2.00 10/27/17 19:00 80 10/27/17 19:00 98.3 79 16 118/42 (67) 99 18 19:00 79 118/42 18 16:37 20 10/27/17 16:00 98 10/27/17 15:05 98.8 101 18 167/92 (117) 98 10/27/17 15:00 101 10/27/17 14:30 94 151/63 18 14:25 96 156/69 10/27/17 14:20 100 173/65 10/27/17 14:00 82 10/27/17 13:55 102 173/68 10/27/17 13:50 104 176/72 10/27/17 13:43 117 194/73 10/27/17 13:30 98.8 81 18 161/98 (119) 98 10/27/17 13:30 82 10/27/17 12:55 10/27/17 12:36 94 19 174/74 (107) 100 Room Air 10/27/17 12:08 100 16 187/80 (115) 100 Room Air 10/27/17 11:53 110 199/87 10/27/17 11:25 92 180/77 10/27/17 10:03 89 171/74 10/27/17 08:52 103 183/81 (115) -: 10/28/17 0335 10/28/17 0335 Physical Exam General Appearance: Well Developed Neck Neck Exam: Neck Supple Pulmonary Resp Exam: Clear Bilaterally, Breath Sounds Equal Cardiology CV Exam: Regular, Normal Sinus Rhythm Gastrointestinal/Abdomen GI Exam: Soft, Non-Tender, Bowel Sounds Present Extremeties Extremities Exam: No Edema Neurologic Neuro Exam: Alert, Awake, Oriented, Speech Clear, Moving All Extremities Assessment/Plan Problem List: (1) ESRD (end stage renal disease) on dialysis ICD Codes: N18.6 - End stage renal disease; Z99.2 - Dependence on renal dialysis Status: Chronic Plan: We will continue HD MWF, next treatment will be tomorrow. AVF right arm functions well, protect that extremity. Avoid IVF administration, gadolinium is contraindicated. High protein diet ordered. Continue Renvela, phosphorus is acceptable. (2) Chest pain ICD Codes: R07.9 - Chest pain, unspecified Status: Acute Plan: Seen by cardiology. s/p nuclear stress test. (3) Essential hypertension ICD Codes: I10 - Essential hypertension Status: Acute Plan: Blood pressure has been high in outpatient setting. May have been out of losartan Increased Losartan to 100 mg PO daily. Change Metoprolol to Carvedilol as Metoprolol is dialyzable. (4) Anemia ICD Codes: D64.9 - Anemia, unspecified Status: Chronic Plan: Epogen has been ordered with dialysis Problem Qualifiers (1) Chest pain: Qualified Codes: R07.9 - Chest pain, unspecified Hoang Denise MD Oct 28, 2017 08:21
[2017-10-28] MEDS: CARVEDILOL 12.5 MG TAB PO SCH ×2 (08:44→21:05)
[2017-10-28] MEDS: SODIUM CHLORIDE 0.9% FLUSH 10 ML FLUSH IV FLUSH SCH ×2 (08:44→21:00)
[2017-10-28] MEDS: LOSARTAN 50 MG TAB PO SCH (08:45)
[2017-10-28] MEDS: BUMETANIDE 1 MG TAB PO SCH (08:45)
[2017-10-28] MEDS: TICAGRELOR 90 MG TAB PO SCH ×2 (08:45→21:05)
[2017-10-28] MEDS: ASPIRIN 81 MG CHEW TAB PO SCH (08:45)
[2017-10-28] MEDS ORDERED: SUCROFERRIC OXYHYDROXIDE 500 MG PO SCH (09:00)
[2017-10-28] MEDS: NITROGLYCERIN-D5W 50 MG/250 ML 250 ML IV PRN (10:48)
[2017-10-28] MEDS: DOXAZOSIN MESYLATE 4 MG TAB PO SCH (10:56)
[2017-10-28] MEDS: NIFEdipine 60 MG SUSTAINED RELEASE TAB PO SCH ×2 (11:00→21:05)
[2017-10-28] MEDS ORDERED: PANTOPRAZOLE SOD 40 MG DELAYED RELEASE TAB PO SCH (11:30)
--- NOTE | 2017-10-28 11:34 | HHI.FPPN ---
Subjective Remarks Patient was seen and evaluated this morning. She feels significantly better than yesterday. Patient denies chest pain, heart palpitations, shortness of breath, nausea/vomiting, diarrhea and constipation. All questions were answered. (Laurie Balbuena MD R1) Objective Vitals Vital Signs Date Time Temp Pulse Resp B/P (MAP) Pulse Ox O2 Delivery O2 Flow Rate FiO2 10/28/17 08:15 99 21 10/28/17 07:53 99 Room Air 10/28/17 07:52 72 10/28/17 07:51 98.5 72 18 172/73 (106) 99 10/28/17 03:00 66 10/28/17 03:00 98.5 66 16 156/66 (96) 99 10/28/17 03:00 99 Room Air 10/27/17 23:00 99 Nasal Cannula 2.00 10/27/17 23:00 98.3 79 16 125/58 (80) 99 10/27/17 23:00 75 10/27/17 22:00 73 125/53 10/27/17 21:20 72 124/51 10/27/17 21:08 99 Nasal Cannula 2.00 10/27/17 20:45 74 117/46 10/27/17 20:30 76 116/46 10/27/17 20:15 73 119/47 10/27/17 20:00 75 119/46 10/27/17 20:00 75 119/46 10/27/17 19:45 76 117/47 10/27/17 19:30 73 118/49 10/27/17 19:15 76 119/46 10/27/17 19:00 99 Nasal Cannula 2.00 10/27/17 19:00 80 10/27/17 19:00 98.3 79 16 118/42 (67) 99 10/27/17 19:00 79 118/42 10/27/17 16:37 20 10/27/17 16:00 98 10/27/17 15:05 98.8 101 18 167/92 (117) 98 10/27/17 15:00 101 10/27/17 14:30 94 151/63 10/27/17 14:25 96 156/69 10/27/17 14:20 100 173/65 10/27/17 14:00 82 10/27/17 13:55 102 173/68 10/27/17 13:50 104 176/72 10/27/17 13:43 117 194/73 10/27/17 13:30 98.8 81 18 161/98 (119) 98 10/27/17 13:30 82 10/27/17 12:55 10/27/17 12:36 94 19 174/74 (107) 100 Room Air 10/27/17 12:08 100 16 187/80 (115) 100 Room Air 10/27/17 11:53 110 199/87 10/27/17 11:25 92 180/77 I/O 10/27/17 10/27/17 10/27/17 10/28/17 10/28/17 10/28/17 07:00 15:00 23:00 07:00 15:00 23:00 Intake Total 160 ml 200 ml 775 ml Output Total 4000 ml Balance 160 ml 200 ml -3225 ml Intake Oral 240 ml IV Total 160 ml 200 ml 535 ml Output Urine Total 0 ml Hemodialysis 4000 ml (Laurie Balbuena MD R1) Result Diagram: 10/28/17 0335 10/28/17 0335 Imaging Last Impressions Chest X-Ray 10/27/17 0632 Signed Impressions: CONCLUSION: No acute cardiopulmonary abnormality is identified. Myocardial Perfusion Scan Nuc Med 10/27/17 0000 Signed Impressions: CONCLUSION: 1. 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 2. No reversible perfusion defects to suggest ischemia. 3. Ejection fraction 55%. Head CT 10/27/17 0000 Signed Impressions: CONCLUSION: 1. No acute intracranial abnormality. Objective Remarks GENERAL: Well-nourished, well-developed -[place] female lying in bed in no acute distress. SKIN: Warm and dry. No rash or other abnormality appreciated. HEENT: Atraumatic, normocephalic with extraocular motion intact. No rhinorrhea. No palpable LAD, JVD, or thyroid abnormality appreciated. CARDIOVASCULAR: Tachycardic rate with regular rhythm. 2/6 systolic ejection murmur appreciated at the left sternal border. RESPIRATORY: Clear to auscultation bilaterally with no crackles, wheezes, or rhonchi. No increased work of breathing. GASTROINTESTINAL: Abdomen soft, non-tender, nondistended with positive bowel sounds. No masses appreciated. MUSCULOSKELETAL: No cyanosis or edema. No calf tenderness. RLE: Right foot with 2+ nonpitting/dependent edema (baseline per patient). Sensation, range of motion, and strength intact. NEUROLOGICAL: Awake. Alert. Oriented x3. Speech- Fluent. No dysarthria or dysphasia. Good focus, attention, and comprehension. Cranial nerves- 2 through 12 intact. Medications and IVs Current Medications Medications (Trade) Dose Ordered Sig/Jonel Route Start Time Stop Time Status Last Admin (Proair Hfa Inh) 2 puff Q4H PRN INH 10/27/17 09:15 (Aspirin Chew) 81 mg DAILY PO 10/28/17 09:00 10/28/17 08:45 (Bumetanide) 2 mg DAILY PO 10/28/17 09:00 10/28/17 08:45 (Cardura) 4 mg DAILY PO 10/28/17 09:00 (Pravachol) 40 mg HS PO 10/27/17 21:00 10/27/17 23:22 (Brilinta) 90 mg BID PO 10/27/17 21:00 10/28/17 08:45 Patient Own Medication PT OWN MED: OMEPRAZ... BID PO 10/27/17 21:00 Future Hold Patient Own Medication PT OWN MED: (Sucroferric Oxyhydroxid... DAILY PO 10/28/17 09:00 Future Hold (NS Flush) 2 ml UNSCH PRN IV FLUSH 10/27/17 09:30 (NS Flush) 2 ml BID IV FLUSH 10/27/17 21:00 10/28/17 08:44 (Tylenol) 500 mg Q4H PRN PO 10/27/17 09:30 Sodium Chloride 1,000 ml @ 0 mls/hr Q0M PRN OTHER 10/27/17 09:55 (Heparin Inj) 8,000 units UNSCH PRN IV FLUSH 10/27/17 10:00 Sodium Chloride 1,000 ml @ 200 mls/hr Q5H PRN IV 10/27/17 09:55 Sodium Chloride 1,000 ml @ 0 mls/hr Q0M PRN OTHER 10/27/17 09:55 (Mannitol Inj) 12.5 gm UNSCH PRN IV 10/27/17 10:00 Albumin Human 100 ml @ 60 mls/hr UNSCH PRN IV 10/27/17 10:00 10/27/17 21:00 (NS Flush) 5 ml UNSCH PRN IV FLUSH 10/27/17 10:00 (Heparin Inj) UNSCH PRN .XX 10/27/17 10:00 (Gentamicin Inj) 20 mg UNSCH PRN OTHER 10/27/17 10:00 (Zofran Odt) 4 mg UNSCH PRN SL 10/27/17 10:00 (Tylenol) 650 mg UNSCH PRN PO 10/27/17 10:00 (Benadryl) 25 mg UNSCH PRN PO 10/27/17 10:00 (Nitrostat Sl) 0.4 mg UNSCH PRN SL 10/27/17 10:00 (Catapres) 0.1 mg UNSCH PRN PO 10/27/17 10:00 10/27/17 14:45 (Epogen Inj) 5,000 units UNSCH PRN IV PUSH 10/27/17 10:00 10/27/17 22:50 (Gelfoam 12 Mm/7 Mm Top) 1 foam UNSCH PRN TOP 10/27/17 10:00 10/27/17 23:08 (Morphine Inj) 2 mg Q2H PRN IV PUSH 10/27/17 10:15 10/27/17 13:43 Nitroglycerin/ Dextrose 250 ml @ 1.5 mls/hr TITRATE PRN IV 10/27/17 10:30 10/27/17 20:00 (Loli-Colace) 1 tab BID PRN PO 10/27/17 10:45 (Milk Of Magnesia Liq) 30 ml Q12H PRN PO 10/27/17 10:45 (Senokot) 17.2 mg Q12H PRN PO 10/27/17 10:45 (Dulcolax Supp) 10 mg DAILY PRN RECTAL 10/27/17 10:45 (Imodium) 2 mg Q6H PRN PO 10/27/17 10:45 (Heparin Inj) 5,000 units Q8H SQ 10/27/17 11:00 10/28/17 05:02 (Renvela) 800 mg TIDAC PO 10/27/17 17:00 10/28/17 07:57 (Coreg) 12.5 mg Q12HR PO 10/28/17 09:00 10/28/17 08:44 (Cozaar) 100 mg DAILY PO 10/28/17 09:00 10/28/17 08:45 (Laurie Balbuena MD R1) Urinary Catheter: No (Laurie Balbuena MD R1) Vascular Central Line Catheter: No (Laurie Balbuena MD R1) A/P Assessment and Plan Patient is a 56 year old female with a past medical history significant of hypertensive nephropathy s/p failed renal transplant and recent cardiac stenting , who presents with hypertensive emergency and chest pain. Discharge Planning Pending clinical improvement. (Laurie Balbuena MD R1) Problem List: (1) Hypertensive emergency without congestive heart failure ICD Codes: I16.1 - Hypertensive emergency Status: Acute Plan: On admission, patient with initial systolic blood pressure of 248 and chest pain, concerning for possible hypertensive emergency. Patient is s/p renal transplant failure currently on hemodialysis MWF. 10/28: Systolic pressure in 160s during encounter. Patient denies chest pain. Admission Labs: * H/H 11.1/35.9, MCV 67.3. * Chloride 110, BUN 68, creatinine 8.85, glucose 123, alk phos 145. * Phosphorus 5.5. * Albumin: 3.3. * Troponin: 0.17 -> 1.06 -> 0.72 Labs 10/28: * H/H 9.3/29.5, MCV 66.1. * BUN 38, creatinine 6.03, glucose 67. * Phosphorus 5.1. Imaging: * CXR 10/27: No acute cardiopulmonary abnormality is identified. * Head CT 10/27: No acute intracranial abnormality. 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 No reversible perfusion defects to suggest ischemia. Ejection fraction 55%. Studies: * EKG showed sinus tachycardia to a rate of [address] elevation or depression. No interval abnormalities. (Per medical team read) * Previous ECHO on 10/29/14 showed EF of 65-70% with normal wall motion. Previous stress test showed abnormality and patient was catheterized and stented in LAD and RCA by Dr. Zelaya on 07/02/17. Orders: * Vitals q4hr with blood pressure checks every hour. * MD to be contacted with acute change in status. Medications: * Nitroglycerin drip to be titrated down and discontinued today. * Continue home Cardura 4mg PO daily. * Home Metoprolol switched to Carvedilol 12.5mg PO q12hr per nephrology. * Home Losartan increased from 50mg to 100mg PO daily per nephrology. * Restart home Nifedipine 60mg PO BID. * Restart home Hydralazine 100mg PO TID. * Morphine 2mg q2hrs PRN Chest Pain. * Continue home Brilinta 90mg PO BID, Aspirin 81mg, Bumetanide 2mg PO daily and Pravastatin 40mg PO HS. Consults: * Cardiology: Check a Lexiscan nuclear stress test. We will followup as needed for any ischemia demonstrated on nuclear stress testing imaging. We will leave optimization of her multidrug antihypertensive regimen to the medical team. * Nephrology: We will continue HD MWF, next treatment will be tomorrow. AVF right arm functions well, protect that extremity. Avoid IVF administration, gadolinium is contraindicated. High protein diet ordered. Continue Renvela, phosphorus is acceptable.Blood pressure has been high in outpatient setting. May have been out of losartan. Increased Losartan to 100 mg PO daily. Change Metoprolol to Carvedilol as Metoprolol is dialyzable. (2) Chest pain ICD Codes: R07.9 - Chest pain, unspecified Status: Acute Plan: Patient complaining of intermittent chest pain despite nitroglycerin drip on day of admission. Patient denies chest pain, following HD 10/27. See Plan above. (3) Hypertensive nephropathy ICD Codes: I12.9 - Hypertensive chronic kidney disease with stage 1 through stage 4 chronic kidney disease, or unspecified chronic kidney disease Status: Chronic Plan: Patient with history of failed renal transplant due to hypertensive nephropathy currently on dialysis MWF. Patient known to Dr. Mcintyre (nephrology) and Dr. Mcnulty (transplant). Medications: * Home Velphoro not on hospital formulary. * See BP medication regimen above. Consults: * Nephrology: Nephrology: We will continue HD MWF, next treatment will be tomorrow. AVF right arm functions well, protect that extremity. Avoid IVF administration, gadolinium is contraindicated. High protein diet ordered. Continue Renvela, phosphorus is acceptable.Blood pressure has been high in outpatient setting. May have been out of losartan. Increased Losartan to 100 mg PO daily. Change Metoprolol to Carvedilol as Metoprolol is dialyzable. (4) Failed kidney transplant ICD Codes: T86.12 - Kidney transplant failure Status: Chronic Plan: Patient with history of failed renal transplant due to hypertensive nephropathy currently on dialysis MWF. Patient known to Dr. Mcintyre (nephrology) and Dr. Mcnulty (transplant). (5) GERD (gastroesophageal reflux disease) ICD Codes: K21.9 - Gastroesophageal reflux disease Status: Chronic Plan: Patient with history of GERD. Medications: * Protonix 40mg PO daily. (6) Hyperlipidemia ICD Codes: E78.5 - Hyperlipidemia Status: Chronic Plan: Patient with history of hyperlipidemia. Medications: * Pravastatin 40mg PO HS. (7) FEN/PPX Status: Acute Plan: Fluids: * Patient appears well-hydrated at this time, tolerating oral fluids. Diet: * Renal diet. Electrolytes: * Monitor and replete as necessary. (8) DVT prophylaxis Status: Acute Plan: Bilateral SCDs. Heparin 5,000 units q8hrs. (Laurie Balbuena MD R1) Problem List: (1) Hypertensive emergency without congestive heart failure ICD Codes: I16.1 - Hypertensive emergency Status: Acute Plan: On admission, patient with initial systolic blood pressure of 248 and chest pain, concerning for possible hypertensive emergency. Patient is s/p renal transplant failure currently on hemodialysis MWF. 10/28: Systolic pressure in 160s during encounter. Patient denies chest pain. Admission Labs: * H/H 11.1/35.9, MCV 67.3. * Chloride 110, BUN 68, creatinine 8.85, glucose 123, alk phos 145. * Phosphorus 5.5. * Albumin: 3.3. * Troponin: 0.17 -> 1.06 -> 0.72 Labs 10/28: * H/H 9.3/29.5, MCV 66.1. * BUN 38, creatinine 6.03, glucose 67. * Phosphorus 5.1. Imaging: * CXR 10/27: No acute cardiopulmonary abnormality is identified. * Head CT 10/27: No acute intracranial abnormality. 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 No reversible perfusion defects to suggest ischemia. Ejection fraction 55%. Studies: * EKG showed sinus tachycardia to a rate of [address] elevation or depression. No interval abnormalities. (Per medical team read) * Previous ECHO on 10/29/14 showed EF of 65-70% with normal wall motion. Previous stress test showed abnormality and patient was catheterized and stented in LAD and RCA by Dr. Zelaya on 07/02/17. Orders: * Vitals q4hr with blood pressure checks every hour. * MD to be contacted with acute change in status. Medications: * Nitroglycerin drip to be titrated down and discontinued today. * Continue home Cardura 4mg PO daily. * Home Metoprolol switched to Carvedilol 12.5mg PO q12hr per nephrology. * Home Losartan increased from 50mg to 100mg PO daily per nephrology. * Restart home Nifedipine 60mg PO BID. * Restart home Hydralazine 100mg PO TID. * Morphine 2mg q2hrs PRN Chest Pain. * Continue home Brilinta 90mg PO BID, Aspirin 81mg, Bumetanide 2mg PO daily and Pravastatin 40mg PO HS. Consults: * Cardiology: Check a Lexiscan nuclear stress test. We will followup as needed for any ischemia demonstrated on nuclear stress testing imaging. We will leave optimization of her multidrug antihypertensive regimen to the medical team. * Nephrology: We will continue HD MWF, next treatment will be tomorrow. AVF right arm functions well, protect that extremity. Avoid IVF administration, gadolinium is contraindicated. High protein diet ordered. Continue Renvela, phosphorus is acceptable.Blood pressure has been high in outpatient setting. May have been out of losartan. Increased Losartan to 100 mg PO daily. Change Metoprolol to Carvedilol as Metoprolol is dialyzable. (2) Chest pain ICD Codes: R07.9 - Chest pain, unspecified Status: Acute Plan: Patient complaining of intermittent chest pain despite nitroglycerin drip on day of admission. Patient denies chest pain, following HD 10/27. See Plan above. (3) Hypertensive nephropathy ICD Codes: I12.9 - Hypertensive chronic kidney disease with stage 1 through stage 4 chronic kidney disease, or unspecified chronic kidney disease Status: Chronic Plan: Patient with history of failed renal transplant due to hypertensive nephropathy currently on dialysis MWF. Patient known to Dr. Mcintyre (nephrology) and Dr. Mcnulty (transplant). Medications: * Home Velphoro not on hospital formulary. * See BP medication regimen above. Consults: * Nephrology: Nephrology: We will continue HD MWF, next treatment will be tomorrow. AVF right arm functions well, protect that extremity. Avoid IVF administration, gadolinium is contraindicated. High protein diet ordered. Continue Renvela, phosphorus is acceptable.Blood pressure has been high in outpatient setting. May have been out of losartan. Increased Losartan to 100 mg PO daily. Change Metoprolol to Carvedilol as Metoprolol is dialyzable. (4) Failed kidney transplant ICD Codes: T86.12 - Kidney transplant failure Status: Chronic Plan: Patient with history of failed renal transplant due to hypertensive nephropathy currently on dialysis MWF. Patient known to Dr. Mcintyre (nephrology) and Dr. Mcnulty (transplant). (5) GERD (gastroesophageal reflux disease) ICD Codes: K21.9 - Gastroesophageal reflux disease Status: Chronic Plan: Patient with history of GERD. Medications: * Protonix 40mg PO daily. (6) Hyperlipidemia ICD Codes: E78.5 - Hyperlipidemia Status: Chronic Plan: Patient with history of hyperlipidemia. Medications: * Pravastatin 40mg PO HS. (7) FEN/PPX Status: Acute Plan: Fluids: * Patient appears well-hydrated at this time, tolerating oral fluids. Diet: * Renal diet. Electrolytes: * Monitor and replete as necessary. (8) DVT prophylaxis Status: Acute Plan: Bilateral SCDs. Heparin 5,000 units q8hrs. See the residents documentation for details. I saw and evaluated the patient regarding the zhu portions of this evaluation and agree with the residents findings and plans as written. Parts of this note were created using [employer] voice recognition software program. While efforts were made to correct any mistakes made by this software, some mistakes, errors, and omissions may remain in the final note that were not caught when the note was originally created. Plan of care was discussed and agreed upon with the patient as specifically documented in the above note. An opportunity to ask questions with explanation was provided. Patient voiced understanding on all information reviewed and discussed. (Constantin Mcnulty MD) Problem Qualifiers (1) Chest pain: Qualified Codes: R07.9 - Chest pain, unspecified (2) GERD (gastroesophageal reflux disease): Qualified Codes: K21.9 - Gastro-esophageal reflux disease without esophagitis (3) Hyperlipidemia: Qualified Codes: E78.5 - Hyperlipidemia, unspecified LaBell,Laurie MD R1 Oct 28, 2017 11:34 Constantin Mcnulty MD Oct 29, 2017 14:30
[2017-10-28] MEDS: hydrALAZINE HCL 100 MG TAB PO SCH ×2 (13:04→18:00)
[2017-10-28] MEDS ORDERED: NITROGLYCERIN-D5W 50 MG/250 ML 250 ML IV PRN (15:15)
--- NOTE | 2017-10-28 18:41 | EKG ---
Date Performed: 10/27/2017 Time Performed: 11:49:18 PTAGE: 56 years EKG: SINUS TACHYCARDIA POSSIBLE LEFT ATRIAL ENLARGEMENT ABNORMAL RHYTHM ECG Since the PREVIOUS TRACING , no significant change noted PREVIOUS TRACIN10/27/2017 06.35 DOCTOR: Miley Upton Interpretating Date/Time 10/28/2017 18:40:40
--- NOTE | 2017-10-28 18:41 | EKG ---
Date Performed: 10/27/2017 Time Performed: 13:44:26 PTAGE: 56 years EKG: Sinus tachycardia Normal ECG except for rate Since the PREVIOUS TRACING , no significant change noted PREVIOUS TRACIN10/27/2017 11.49 DOCTOR: Miley Upton Interpretating Date/Time 10/28/2017 18:40:51
[2017-10-28] MEDS: PRAVASTATIN SOD 40 MG TAB PO SCH (21:05)
[2017-10-29] VITALS (8 sets, daily range): BP systolic 120–149; BP diastolic 49–60; PULSE 69–76; RESP 16–24; TEMP 97.9–98.9; O2SAT 93–99
[2017-10-29] MEDS: HEPARIN SODIUM - SQ 10,000 UNITS/ML VIAL SQ SCH ×3 (03:19→21:16)
[2017-10-29 04:41] LABS: HEMATOCRIT 32.7 % (35.0-46.0); HEMOGLOBIN 10.2 GM/DL (11.6-15.3); MEAN CELL VOLUME 66.7 FL (80.0-100.0); MEAN CORPUSCULAR HEMOGLOBIN 20.7 PG (27.0-34.0); MEAN PLATELET VOLUME 8.4 FL (7.0-11.0); PLATELET COUNT 288 TH/MM3 (150-450); RED BLOOD COUNT 4.91 MIL/MM3 (4.00-5.30); RED CELL DISTRIBUTION WIDTH 18.2 % (11.6-17.2); WHITE BLOOD COUNT 8.2 TH/MM3 (4.0-11.0)
[2017-10-29 05:14] LABS: ALBUMIN 3.5 GM/DL (3.4-5.0); ALKALINE PHOSPHATASE 117 U/L (45-117); ALT (GPT) 6 U/L (10-53); AST (GOT) 7 U/L (15-37); BICARBONATE 23.7 MEQ/L (21.0-32.0); BLOOD UREA NITROGEN 49 MG/DL (7-18); CALCIUM 8.9 MG/DL (8.5-10.1); CHLORIDE 104 MEQ/L (98-107); CREATININE 7.38 MG/DL (0.50-1.00); GLOMERULAR FILTRATION RATE 7 ML/MIN (>89); GLUCOSE,RANDOM 83 MG/DL (74-106); PHOSPHORUS 5.6 MG/DL (2.5-4.9); SODIUM (NA) 139 MEQ/L (136-145); TOTAL BILIRUBIN ADULT 0.4 MG/DL (0.2-1.0); TOTAL PROTEIN 6.5 GM/DL (6.4-8.2)
[2017-10-29] MEDS: BUMETANIDE 1 MG TAB PO SCH (08:48)
[2017-10-29] MEDS: TICAGRELOR 90 MG TAB PO SCH ×2 (08:48→21:17)
[2017-10-29] MEDS: DOXAZOSIN MESYLATE 4 MG TAB PO SCH (08:49)
[2017-10-29] MEDS: CARVEDILOL 12.5 MG TAB PO SCH ×2 (08:49→21:17)
[2017-10-29] MEDS: NIFEdipine 60 MG SUSTAINED RELEASE TAB PO SCH ×2 (08:49→21:16)
[2017-10-29] MEDS: ASPIRIN 81 MG CHEW TAB PO SCH (08:49)
[2017-10-29] MEDS: hydrALAZINE HCL 100 MG TAB PO SCH ×3 (08:49→21:16)
[2017-10-29] MEDS: SODIUM CHLORIDE 0.9% FLUSH 10 ML FLUSH IV FLUSH SCH ×2 (08:49→21:00)
[2017-10-29] MEDS: LOSARTAN 50 MG TAB PO SCH (08:49)
[2017-10-29] MEDS: SEVELAMER CARBONATE 800 MG TAB PO SCH ×3 (08:49→21:16)
--- NOTE | 2017-10-29 09:34 | HHI.NPPN ---
Subjective Renal Failure: End Stage Renal Disease Additional Remarks Resting comfortably. Denies any shortness of breath, chest pain, nausea, or vomiting. No edema. Hemodialysis today. (Cornelia Gray) Review of Systems General Constitutional: Fatigue (Cornelia Gray) Respiratory Respiratory Remarks Denies SOB (Cornelia Gray) Cardiovascular Cardiac Remarks denies CP (Cornelia Gray) Gastrointestinal GI Remarks denies abdominal pain (Cornelia Gray) Objective Data Data Vital Signs Date Time Temp Pulse Resp B/P (MAP) Pulse Ox O2 Delivery O2 Flow Rate FiO2 10/29/17 08:15 96 21 10/29/17 07:30 98 Room Air 10/29/17 07:30 70 10/29/17 07:30 98.2 72 20 137/57 (83) 98 10/29/17 03:36 97 Room Air 10/29/17 03:36 98.4 73 16 131/52 (78) 99 10/29/17 03:00 76 10/28/17 23:25 97 Room Air 10/28/17 23:25 98.4 79 16 149/57 (87) 99 10/28/17 23:00 75 10/28/17 19:15 98.4 75 16 117/55 (75) 99 10/28/17 19:15 99 Room Air 10/28/17 19:00 72 10/28/17 15:16 92 Room Air 10/28/17 15:16 73 10/28/17 15:13 98.1 73 18 152/62 (92) 92 10/28/17 13:15 154 10/28/17 11:04 70 10/28/17 11:03 99 Room Air 10/28/17 11:02 98.6 70 18 160/71 (100) 99 (Cornelia Gray) -: 10/29/17 0351 10/29/17 0351 Imaging Last Impressions Chest X-Ray 10/27/17 0632 Signed Impressions: CONCLUSION: No acute cardiopulmonary abnormality is identified. Myocardial Perfusion Scan Nuc Med 10/27/17 0000 Signed Impressions: CONCLUSION: 1. 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 2. No reversible perfusion defects to suggest ischemia. 3. Ejection fraction 55%. Head CT 10/27/17 0000 Signed Impressions: CONCLUSION: 1. No acute intracranial abnormality. (Cornelia Gray) Physical Exam General Appearance: Well Developed (Cornelia Gray) Neck Neck Exam: Neck Supple (Cornelia Gray) Pulmonary Resp Exam: Clear Bilaterally, Breath Sounds Equal (Cornelia Gray) Cardiology CV Exam: Regular, Normal Sinus Rhythm (Cornelia Gray) Gastrointestinal/Abdomen GI Exam: Soft, Non-Tender, Bowel Sounds Present (Cornelia Gray) Extremeties Extremities Exam: No Edema (Cornelia Gray) Neurologic Neuro Exam: Alert, Awake, Oriented, Speech Clear, Moving All Extremities (Cornelia Gray) Assessment/Plan Problem List: (1) ESRD (end stage renal disease) on dialysis ICD Codes: N18.6 - End stage renal disease; Z99.2 - Dependence on renal dialysis Status: Chronic Plan: HD MWF AVF right arm functions well, protect that extremity. Avoid IVF administration, gadolinium is contraindicated. High protein diet ordered. Continue Renvela, phosphorus is acceptable. Hemodialysis today remove fluid as tolerated. (2) Chest pain ICD Codes: R07.9 - Chest pain, unspecified Status: Acute Plan: Seen by cardiology. s/p nuclear stress test. (3) Essential hypertension ICD Codes: I10 - Essential hypertension Status: Acute Plan: Blood pressure well controlled Continue current medication Will monitor (4) Anemia ICD Codes: D64.9 - Anemia, unspecified Status: Chronic Plan: Epogen with dialysis (Cornelia Gray) Problem List: (1) ESRD (end stage renal disease) on dialysis ICD Codes: N18.6 - End stage renal disease; Z99.2 - Dependence on renal dialysis Status: Chronic Plan: HD MWF AVF right arm functions well, protect that extremity. Avoid IVF administration, gadolinium is contraindicated. High protein diet ordered. Continue Renvela, phosphorus is acceptable. Hemodialysis today remove fluid as tolerated. Patient seen and examined, agree with above. Seen during HD, tolerating well, BP is stable. (2) Chest pain ICD Codes: R07.9 - Chest pain, unspecified Status: Acute Plan: Seen by cardiology. s/p nuclear stress test. (3) Essential hypertension ICD Codes: I10 - Essential hypertension Status: Acute Plan: Blood pressure well controlled Continue current medication Will monitor (4) Anemia ICD Codes: D64.9 - Anemia, unspecified Status: Chronic Plan: Epogen with dialysis (Piotr Horta MD) Problem Qualifiers (1) Chest pain: Qualified Codes: R07.9 - Chest pain, unspecified Cornelia Gray Oct 29, 2017 09:34 Piotr Horta MD Oct 29, 2017 22:22
--- NOTE | 2017-10-29 11:19 | HHI.FPPN ---
Subjective Remarks Patient was seen and evaluated this morning. Per nursing staff, the nitroglycerin drip has been off since 11 p.m. last night and patient's blood pressures have been well controlled. The patient reports feeling as "if nothing had happened." She has not experienced chest pain since yesterday afternoon. Patient denies heart palpitations, shortness of breath, nausea/vomiting, diarrhea and constipation. All questions were answered. (Laurie Balbuena MD R1) Objective Vitals Vital Signs Date Time Temp Pulse Resp B/P (MAP) Pulse Ox O2 Delivery O2 Flow Rate FiO2 10/29/17 08:15 96 21 10/29/17 07:30 98 Room Air 10/29/17 07:30 70 10/29/17 07:30 98.2 72 20 137/57 (83) 98 10/29/17 03:36 97 Room Air 10/29/17 03:36 98.4 73 16 131/52 (78) 99 10/29/17 03:00 76 10/28/17 23:25 97 Room Air 10/28/17 23:25 98.4 79 16 149/57 (87) 99 10/28/17 23:00 75 10/28/17 19:15 98.4 75 16 117/55 (75) 99 10/28/17 19:15 99 Room Air 10/28/17 19:00 72 10/28/17 15:16 92 Room Air 10/28/17 15:16 73 10/28/17 15:13 98.1 73 18 152/62 (92) 92 10/28/17 13:15 154 10/28/17 11:04 70 10/28/17 11:03 99 Room Air I/O 10/28/17 10/28/17 10/28/17 10/29/17 10/29/17 10/29/17 07:00 15:00 23:00 07:00 15:00 23:00 Intake Total 775 ml 44.5 ml 850 ml 400 ml Output Total 4000 ml 450 ml Balance -3225 ml 44.5 ml 400 ml 400 ml Intake Oral 240 ml 800 ml 400 ml IV Total 535 ml 44.5 ml 50 ml Output Urine Total 0 ml 450 ml Hemodialysis 4000 ml # Voids 4 1 # Bowel Movements 0 (Laurie Balbuena MD R1) Result Diagram: 10/29/17 0351 10/29/17 0351 Imaging Last Impressions Chest X-Ray 10/27/17 0632 Signed Impressions: CONCLUSION: No acute cardiopulmonary abnormality is identified. Myocardial Perfusion Scan Nuc Med 10/27/17 0000 Signed Impressions: CONCLUSION: 1. 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 2. No reversible perfusion defects to suggest ischemia. 3. Ejection fraction 55%. Head CT 10/27/17 0000 Signed Impressions: CONCLUSION: 1. No acute intracranial abnormality. Objective Remarks GENERAL: Well-nourished, well-developed -[place] female lying in bed in no acute distress. SKIN: Warm and dry. No rash or other abnormality appreciated. HEENT: Atraumatic, normocephalic with extraocular motion intact. No rhinorrhea. No palpable LAD, JVD, or thyroid abnormality appreciated. CARDIOVASCULAR: Tachycardic rate with regular rhythm. 2/6 systolic ejection murmur appreciated at the left sternal border. RESPIRATORY: Clear to auscultation bilaterally with no crackles, wheezes, or rhonchi. No increased work of breathing. GASTROINTESTINAL: Abdomen soft, non-tender, nondistended with positive bowel sounds. No masses appreciated. MUSCULOSKELETAL: No cyanosis or edema. No calf tenderness. NEUROLOGICAL: Awake. Alert. Oriented x3. Speech- Fluent. No dysarthria or dysphasia. Good focus, attention, and comprehension. Cranial nerves- 2 through 12 intact. Medications and IVs Current Medications Medications (Trade) Dose Ordered Sig/Jonel Route Start Time Stop Time Status Last Admin (Proair Hfa Inh) 2 puff Q4H PRN INH 10/27/17 09:15 (Aspirin Chew) 81 mg DAILY PO 10/28/17 09:00 10/29/17 08:49 (Bumetanide) 2 mg DAILY PO 10/28/17 09:00 10/29/17 08:48 (Cardura) 4 mg DAILY PO 10/28/17 09:00 10/29/17 08:49 (Pravachol) 40 mg HS PO 10/27/17 21:00 10/28/17 21:05 (Brilinta) 90 mg BID PO 10/27/17 21:00 10/29/17 08:48 (NS Flush) 2 ml UNSCH PRN IV FLUSH 10/27/17 09:30 (NS Flush) 2 ml BID IV FLUSH 10/27/17 21:00 10/29/17 08:49 (Tylenol) 500 mg Q4H PRN PO 10/27/17 09:30 Sodium Chloride 1,000 ml @ 0 mls/hr Q0M PRN OTHER 10/27/17 09:55 (Heparin Inj) 8,000 units UNSCH PRN IV FLUSH 10/27/17 10:00 Sodium Chloride 1,000 ml @ 200 mls/hr Q5H PRN IV 10/27/17 09:55 Sodium Chloride 1,000 ml @ 0 mls/hr Q0M PRN OTHER 10/27/17 09:55 (Mannitol Inj) 12.5 gm UNSCH PRN IV 10/27/17 10:00 Albumin Human 100 ml @ 60 mls/hr UNSCH PRN IV 10/27/17 10:00 10/27/17 21:00 (NS Flush) 5 ml UNSCH PRN IV FLUSH 10/27/17 10:00 (Heparin Inj) UNSCH PRN .XX 10/27/17 10:00 (Gentamicin Inj) 20 mg UNSCH PRN OTHER 10/27/17 10:00 (Zofran Odt) 4 mg UNSCH PRN SL 10/27/17 10:00 (Tylenol) 650 mg UNSCH PRN PO 10/27/17 10:00 (Benadryl) 25 mg UNSCH PRN PO 10/27/17 10:00 (Nitrostat Sl) 0.4 mg UNSCH PRN SL 10/27/17 10:00 (Catapres) 0.1 mg UNSCH PRN PO 10/27/17 10:00 10/27/17 14:45 (Epogen Inj) 5,000 units UNSCH PRN IV PUSH 10/27/17 10:00 10/27/17 22:50 (Gelfoam 12 Mm/7 Mm Top) 1 foam UNSCH PRN TOP 10/27/17 10:00 10/27/17 23:08 (Morphine Inj) 2 mg Q2H PRN IV PUSH 10/27/17 10:15 10/27/17 13:43 (Loli-Colace) 1 tab BID PRN PO 10/27/17 10:45 (Milk Of Magnesia Liq) 30 ml Q12H PRN PO 10/27/17 10:45 (Senokot) 17.2 mg Q12H PRN PO 10/27/17 10:45 (Dulcolax Supp) 10 mg DAILY PRN RECTAL 10/27/17 10:45 (Imodium) 2 mg Q6H PRN PO 10/27/17 10:45 (Heparin Inj) 5,000 units Q8H SQ 10/27/17 11:00 10/29/17 10:31 (Renvela) 800 mg TIDAC PO 10/27/17 17:00 10/29/17 08:49 (Coreg) 12.5 mg Q12HR PO 10/28/17 09:00 10/29/17 08:49 (Cozaar) 100 mg DAILY PO 10/28/17 09:00 10/29/17 08:49 (Apresoline) 100 mg TID PO 10/28/17 13:00 10/29/17 08:49 (Procardia Xl) 60 mg BID PO 10/28/17 11:00 10/29/17 08:49 Nitroglycerin/ Dextrose 250 ml @ 1.5 mls/hr TITRATE PRN IV 10/28/17 15:15 Future Hold 10/28/17 15:24 (Laurie Balbuena MD R1) Urinary Catheter: No (Laurie Balbuena MD R1) Vascular Central Line Catheter: No (Laurie Balbuena MD R1) A/P Assessment and Plan Patient is a 56 year old female with a past medical history significant of hypertensive nephropathy s/p failed renal transplant and recent cardiac stenting , who presents with hypertensive emergency and chest pain. Discharge Planning Pending clinical improvement. (Laurie Balbuena MD R1) Problem List: (1) Hypertensive emergency without congestive heart failure ICD Codes: I16.1 - Hypertensive emergency Status: Acute Plan: On admission, patient with initial systolic blood pressure of 248 and chest pain, concerning for possible hypertensive emergency. Patient is s/p renal transplant failure currently on hemodialysis MW. 10/29: BP 137/57 during encounter. Patient denies chest pain. Admission Labs: * H/H 11.1/35.9, MCV 67.3. * Chloride 110, BUN 68, creatinine 8.85, glucose 123, alk phos 145. * Phosphorus 5.5. * Albumin: 3.3. * Troponin: 0.17 -> 1.06 -> 0.72 Labs 10/29: * H/H 10.2/32.7, MCV 66.7. * BUN 49, creatinine 7.38, glucose 83. * Phosphorus 5.6. Imaging: * CXR 10/27: No acute cardiopulmonary abnormality is identified. * Head CT 10/27: No acute intracranial abnormality. 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 No reversible perfusion defects to suggest ischemia. Ejection fraction 55%. Studies: * EKG showed sinus tachycardia to a rate of [address] elevation or depression. No interval abnormalities. (Per medical team read) * Previous ECHO on 10/29/14 showed EF of 65-70% with normal wall motion. Previous stress test showed abnormality and patient was catheterized and stented in LAD and RCA by Dr. Zelaya on 07/02/17. Orders: * Vitals q4hr with blood pressure checks every hour. * MD to be contacted with acute change in status. Medications: * Nitroglycerin drip discontinued 10/28. * Continue home Cardura 4mg PO daily. * Home Metoprolol switched to Carvedilol 12.5mg PO q12hr on 10/28 per nephrology. * Home Losartan increased from 50mg to 100mg PO daily on 10/28 per nephrology. * Continue home Nifedipine 60mg PO BID. * Continue home Hydralazine 100mg PO TID. * Morphine 2mg q2hrs PRN Chest Pain. * Continue home Brilinta 90mg PO BID, Aspirin 81mg, Bumetanide 2mg PO daily and Pravastatin 40mg PO HS. Consults: * Cardiology: Check a Lexiscan nuclear stress test. We will followup as needed for any ischemia demonstrated on nuclear stress testing imaging. We will leave optimization of her multidrug antihypertensive regimen to the medical team. * Nephrology: We will continue HD MWF, next treatment today. AVF right arm functions well, protect that extremity. Avoid IVF administration, gadolinium is contraindicated. High protein diet ordered. Continue Renvela, phosphorus is acceptable. Blood pressure well controlled. Continue current medication. Will monitor. (2) Chest pain ICD Codes: R07.9 - Chest pain, unspecified Status: Acute Plan: Patient complaining of intermittent chest pain despite nitroglycerin drip on day of admission. Patient denies chest pain overnight. See Plan above. (3) Hypertensive nephropathy ICD Codes: I12.9 - Hypertensive chronic kidney disease with stage 1 through stage 4 chronic kidney disease, or unspecified chronic kidney disease Status: Chronic Plan: Patient with history of failed renal transplant due to hypertensive nephropathy currently on dialysis MWF. Patient known to Dr. Mcintyre (nephrology) and Dr. Mcnulty (transplant). Medications: * Home Velphoro not on hospital formulary. * See BP medication regimen above. Consults: * Nephrology: We will continue HD MWF, next treatment today. AVF right arm functions well, protect that extremity. Avoid IVF administration, gadolinium is contraindicated. High protein diet ordered. Continue Renvela, phosphorus is acceptable. Blood pressure well controlled. Continue current medication. Will monitor. (4) Failed kidney transplant ICD Codes: T86.12 - Kidney transplant failure Status: Chronic Plan: Patient with history of failed renal transplant due to hypertensive nephropathy currently on dialysis MWF. Patient known to Dr. Mcintyre (nephrology) and Dr. Mcnulty (transplant). (5) GERD (gastroesophageal reflux disease) ICD Codes: K21.9 - Gastroesophageal reflux disease Status: Chronic Plan: Patient with history of GERD. Medications: * Omeprazole not on hospital formulary. Patient allergic to Pantoprazole. (6) Hyperlipidemia ICD Codes: E78.5 - Hyperlipidemia Status: Chronic Plan: Patient with history of hyperlipidemia. Medications: * Pravastatin 40mg PO HS. (7) FEN/PPX Status: Acute Plan: Fluids: * Patient appears well-hydrated at this time, tolerating oral fluids. Diet: * Renal diet. Electrolytes: * Monitor and replete as necessary. (8) DVT prophylaxis Status: Acute Plan: Bilateral SCDs. Heparin 5,000 units q8hrs. (Laurie Balbuena MD R1) Problem List: (1) Hypertensive emergency without congestive heart failure ICD Codes: I16.1 - Hypertensive emergency Status: Acute Plan: On admission, patient with initial systolic blood pressure of 248 and chest pain, concerning for possible hypertensive emergency. Patient is s/p renal transplant failure currently on hemodialysis MWF. 10/29: BP 137/57 during encounter. Patient denies chest pain. Admission Labs: * H/H 11.1/35.9, MCV 67.3. * Chloride 110, BUN 68, creatinine 8.85, glucose 123, alk phos 145. * Phosphorus 5.5. * Albumin: 3.3. * Troponin: 0.17 -> 1.06 -> 0.72 Labs 10/29: * H/H 10.2/32.7, MCV 66.7. * BUN 49, creatinine 7.38, glucose 83. * Phosphorus 5.6. Imaging: * CXR 10/27: No acute cardiopulmonary abnormality is identified. * Head CT 10/27: No acute intracranial abnormality. 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 No reversible perfusion defects to suggest ischemia. Ejection fraction 55%. Studies: * EKG showed sinus tachycardia to a rate of [address] elevation or depression. No interval abnormalities. (Per medical team read) * Previous ECHO on 10/29/14 showed EF of 65-70% with normal wall motion. Previous stress test showed abnormality and patient was catheterized and stented in LAD and RCA by Dr. Zelaya on 07/02/17. Orders: * Vitals q4hr with blood pressure checks every hour. * MD to be contacted with acute change in status. Medications: * Nitroglycerin drip discontinued 10/28. * Continue home Cardura 4mg PO daily. * Home Metoprolol switched to Carvedilol 12.5mg PO q12hr on 10/28 per nephrology. * Home Losartan increased from 50mg to 100mg PO daily on 10/28 per nephrology. * Continue home Nifedipine 60mg PO BID. * Continue home Hydralazine 100mg PO TID. * Morphine 2mg q2hrs PRN Chest Pain. * Continue home Brilinta 90mg PO BID, Aspirin 81mg, Bumetanide 2mg PO daily and Pravastatin 40mg PO HS. Consults: * Cardiology: Check a Lexiscan nuclear stress test. We will followup as needed for any ischemia demonstrated on nuclear stress testing imaging. We will leave optimization of her multidrug antihypertensive regimen to the medical team. * Nephrology: We will continue HD MWF, next treatment today. AVF right arm functions well, protect that extremity. Avoid IVF administration, gadolinium is contraindicated. High protein diet ordered. Continue Renvela, phosphorus is acceptable. Blood pressure well controlled. Continue current medication. Will monitor. (2) Chest pain ICD Codes: R07.9 - Chest pain, unspecified Status: Acute Plan: Patient complaining of intermittent chest pain despite nitroglycerin drip on day of admission. Patient denies chest pain overnight. See Plan above. (3) Hypertensive nephropathy ICD Codes: I12.9 - Hypertensive chronic kidney disease with stage 1 through stage 4 chronic kidney disease, or unspecified chronic kidney disease Status: Chronic Plan: Patient with history of failed renal transplant due to hypertensive nephropathy currently on dialysis MWF. Patient known to Dr. Mcintyre (nephrology) and Dr. Mcnulty (transplant). Medications: * Home Velphoro not on hospital formulary. * See BP medication regimen above. Consults: * Nephrology: We will continue HD MWF, next treatment today. AVF right arm functions well, protect that extremity. Avoid IVF administration, gadolinium is contraindicated. High protein diet ordered. Continue Renvela, phosphorus is acceptable. Blood pressure well controlled. Continue current medication. Will monitor. (4) Failed kidney transplant ICD Codes: T86.12 - Kidney transplant failure Status: Chronic Plan: Patient with history of failed renal transplant due to hypertensive nephropathy currently on dialysis MWF. Patient known to Dr. Mcintyre (nephrology) and Dr. Mcnulty (transplant). (5) GERD (gastroesophageal reflux disease) ICD Codes: K21.9 - Gastroesophageal reflux disease Status: Chronic Plan: Patient with history of GERD. Medications: * Omeprazole not on hospital formulary. Patient allergic to Pantoprazole. (6) Hyperlipidemia ICD Codes: E78.5 - Hyperlipidemia Status: Chronic Plan: Patient with history of hyperlipidemia. Medications: * Pravastatin 40mg PO HS. (7) FEN/PPX Status: Acute Plan: Fluids: * Patient appears well-hydrated at this time, tolerating oral fluids. Diet: * Renal diet. Electrolytes: * Monitor and replete as necessary. (8) DVT prophylaxis Status: Acute Plan: Bilateral SCDs. Heparin 5,000 units q8hrs. See the residents documentation for details. I saw and evaluated the patient regarding the zhu portions of this evaluation and agree with the residents findings and plans as written. Parts of this note were created using [employer] voice recognition software program. While efforts were made to correct any mistakes made by this software, some mistakes, errors, and omissions may remain in the final note that were not caught when the note was originally created. Plan of care was discussed and agreed upon with the patient as specifically documented in the above note. An opportunity to ask questions with explanation was provided. Patient voiced understanding on all information reviewed and discussed. (Constantin Mcnulty MD) Problem Qualifiers (1) Chest pain: Qualified Codes: R07.9 - Chest pain, unspecified (2) GERD (gastroesophageal reflux disease): Qualified Codes: K21.9 - Gastro-esophageal reflux disease without esophagitis (3) Hyperlipidemia: Qualified Codes: E78.5 - Hyperlipidemia, unspecified Laurie Balbuena MD R1 Oct 29, 2017 11:19 Constantin Mcnulty MD Oct 29, 2017 14:58
[2017-10-29] MEDS: EPOETIN ALFA 10,000 UNITS/ML VIAL IV PUSH PRN (17:45)
[2017-10-29] MEDS: GELATIN 12 MM/7 MM FOAM TOP PRN (17:45)
[2017-10-29] MEDS: PRAVASTATIN SOD 40 MG TAB PO SCH (21:17)
[2017-10-30] VITALS (7 sets, daily range): BP systolic 123–147; BP diastolic 39–55; PULSE 69–73; RESP 18; TEMP 98.1–98.2; O2SAT 94–96
[2017-10-30 04:12] LABS: HEMATOCRIT 32.7 % (35.0-46.0); HEMOGLOBIN 10.3 GM/DL (11.6-15.3); MEAN CORPUSCULAR HEMOGLOBIN 20.7 PG (27.0-34.0); MEAN CORPUSCULAR HGB CONC 31.3 % (32.0-36.0); MEAN PLATELET VOLUME 8.6 FL (7.0-11.0); PLATELET COUNT 297 TH/MM3 (150-450); RED BLOOD COUNT 4.96 MIL/MM3 (4.00-5.30); RED CELL DISTRIBUTION WIDTH 18.2 % (11.6-17.2); WHITE BLOOD COUNT 8.8 TH/MM3 (4.0-11.0)
[2017-10-30 04:36] LABS: BICARBONATE 26.5 MEQ/L (21.0-32.0); CALCIUM 9.1 MG/DL (8.5-10.1); CREATININE 5.46 MG/DL (0.50-1.00); PHOSPHORUS 4.4 MG/DL (2.5-4.9)
[2017-10-30] MEDS: HEPARIN SODIUM - SQ 10,000 UNITS/ML VIAL SQ SCH ×2 (04:47→12:37)
[2017-10-30] MEDS: TICAGRELOR 90 MG TAB PO SCH (08:40)
[2017-10-30] MEDS: SEVELAMER CARBONATE 800 MG TAB PO SCH ×2 (08:40→12:37)
[2017-10-30] MEDS: LOSARTAN 50 MG TAB PO SCH (08:41)
[2017-10-30] MEDS: BUMETANIDE 1 MG TAB PO SCH (08:42)
[2017-10-30] MEDS: NIFEdipine 60 MG SUSTAINED RELEASE TAB PO SCH (08:42)
[2017-10-30] MEDS: CARVEDILOL 12.5 MG TAB PO SCH (08:43)
[2017-10-30] MEDS: SODIUM CHLORIDE 0.9% FLUSH 10 ML FLUSH IV FLUSH SCH (08:43)
[2017-10-30] MEDS: DOXAZOSIN MESYLATE 4 MG TAB PO SCH (08:43)
[2017-10-30] MEDS: hydrALAZINE HCL 100 MG TAB PO SCH ×2 (08:43→12:38)
[2017-10-30] MEDS: ASPIRIN 81 MG CHEW TAB PO SCH (08:43)
--- NOTE | 2017-10-30 08:59 | HHI.FPPN ---
Subjective Remarks Patient seen and examined this morning. No acute events overnight. Patient states she would like to be discharged today. She feels "back to normal" and has no current complaints. She denies any new chest pain, CARLSON, SOB, NVD, ABD pain , or calf tenderness. We discussed her perfusion scan report and increase of her HTN medications. All questions answered. (Shade Suh MD R2) Objective Vitals Vital Signs Date Time Temp Pulse Resp B/P (MAP) Pulse Ox O2 Delivery O2 Flow Rate FiO2 10/30/17 08:00 98.1 72 18 147/55 (85) 95 10/30/17 07:32 95 Room Air 10/30/17 07:00 73 10/30/17 03:00 94 Room Air 10/30/17 03:00 71 10/30/17 03:00 98.2 71 18 123/49 (73) 94 10/29/17 23:00 98.3 71 18 149/56 (87) 93 10/29/17 23:00 71 10/29/17 23:00 97 Room Air 10/29/17 22:13 21 10/29/17 19:00 98 Room Air 10/29/17 19:00 75 10/29/17 19:00 98.1 75 24 120/50 (73) 98 10/29/17 15:00 97 Room Air 10/29/17 15:00 97.9 71 20 131/49 (76) 97 10/29/17 15:00 71 10/29/17 11:00 69 10/29/17 11:00 98.9 71 20 141/60 (87) 96 10/29/17 11:00 96 Room Air I/O 10/29/17 10/29/17 10/29/17 10/30/17 10/30/17 10/30/17 07:00 15:00 23:00 07:00 15:00 23:00 Intake Total 400 ml 960 ml 480 ml Output Total 2300 ml Balance 400 ml -1340 ml 480 ml Intake Oral 400 ml 960 ml 480 ml Output Urine Total 300 ml Hemodialysis 2000 ml # Voids 1 1 # Bowel Movements 0 0 (Shade Suh MD R2) Result Diagram: 10/30/1731810/30/17318 Objective Remarks GENERAL: Well-nourished, well-developed -[place] female sitting up in a recliner watching television in no acute distress on room air. SKIN: Warm and dry. No rash or other abnormality appreciated. HEENT: Atraumatic, normocephalic with extraocular motion intact. No rhinorrhea. No visible LAD or JVD appreciated. CARDIOVASCULAR: Regular rate and rhythm with 2/6 systolic ejection murmur appreciated at the left sternal border (baseline). RESPIRATORY: Clear to auscultation bilaterally with no crackles, wheezes, or rhonchi. No increased work of breathing. GASTROINTESTINAL: Abdomen soft, non-tender, nondistended with positive bowel sounds. No masses appreciated. MUSCULOSKELETAL: No cyanosis or edema. No calf tenderness. NEUROLOGICAL: Afocal. Awake. Alert. Oriented x3. Normal speech and judgment. (Shade Suh MD R2) A/P Assessment and Plan Patient is a 56 year old female with a past medical history significant of hypertensive nephropathy s/p failed renal transplant and recent cardiac stenting , who presents with hypertensive emergency and chest pain. Discharge Planning Pending nephrology clearance. PT recommends home with no PT. (Shade Suh MD R2) Problem List: (1) Hypertensive emergency without congestive heart failure ICD Codes: I16.1 - Hypertensive emergency Status: Acute Plan: On admission, patient with initial systolic blood pressure of 248 and chest pain, concerning for possible hypertensive emergency. Patient is s/p renal transplant failure currently on hemodialysis MW. 10/29: BP 137/57 during encounter. Patient denies chest pain. Admission Labs: * H/H 11.1/35.9, MCV 67.3. * Chloride 110, BUN 68, creatinine 8.85, glucose 123, alk phos 145. * Phosphorus 5.5. * Albumin: 3.3. * Troponin: 0.17 -> 1.06 -> 0.72 Labs 10/29: * H/H 10.2/32.7, MCV 66.7. * BUN 49, creatinine 7.38, glucose 83. * Phosphorus 5.6. Imaging: * CXR 10/27: No acute cardiopulmonary abnormality is identified. * Head CT 10/27: No acute intracranial abnormality. 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 No reversible perfusion defects to suggest ischemia. Ejection fraction 55%. Studies: * EKG showed sinus tachycardia to a rate of [address] elevation or depression. No interval abnormalities. (Per medical team read) * Previous ECHO on 10/29/14 showed EF of 65-70% with normal wall motion. Previous stress test showed abnormality and patient was catheterized and stented in LAD and RCA by Dr. Zelaya on 07/02/17. Orders: * Vitals q4hr with blood pressure checks every hour. * MD to be contacted with acute change in status. Medications: * Nitroglycerin drip discontinued 10/28. * Continue home Cardura 4mg PO daily. * Home Metoprolol switched to Carvedilol 12.5mg PO q12hr on 10/28 per nephrology. * Home Losartan increased to 100mg daily. * Continue home Nifedipine 60mg PO BID. * Continue home Hydralazine 100mg PO TID. * Morphine 2mg q2hrs PRN Chest Pain. * Continue home Brilinta 90mg PO BID, Aspirin 81mg, Bumetanide 2mg PO daily and Pravastatin 40mg PO HS. Consults: * Cardiology: Check a Lexiscan nuclear stress test. We will followup as needed for any ischemia demonstrated on nuclear stress testing imaging. We will leave optimization of her multidrug antihypertensive regimen to the medical team. * Nephrology: We will continue HD MWF, next treatment today. AVF right arm functions well, protect that extremity. Avoid IVF administration, gadolinium is contraindicated. High protein diet ordered. Continue Renvela, phosphorus is acceptable. Blood pressure well controlled. Continue current medication. Will monitor. (2) Chest pain ICD Codes: R07.9 - Chest pain, unspecified Status: Acute Plan: Patient complaining of intermittent chest pain despite nitroglycerin drip on day of admission. Patient denies chest pain overnight. See Plan above. (3) Hypertensive nephropathy ICD Codes: I12.9 - Hypertensive chronic kidney disease with stage 1 through stage 4 chronic kidney disease, or unspecified chronic kidney disease Status: Chronic Plan: Patient with history of failed renal transplant due to hypertensive nephropathy currently on dialysis MWF. Patient known to Dr. Mcintyre (nephrology) and Dr. Mcnulty (transplant). Medications: * Home Velphoro not on hospital formulary. * See BP medication regimen above. Consults: * Nephrology: We will continue HD MWF, next treatment today. AVF right arm functions well, protect that extremity. Avoid IVF administration, gadolinium is contraindicated. High protein diet ordered. Continue Renvela, phosphorus is acceptable. Blood pressure well controlled. Continue current medication. Will monitor. (4) Failed kidney transplant ICD Codes: T86.12 - Kidney transplant failure Status: Chronic Plan: Patient with history of failed renal transplant due to hypertensive nephropathy currently on dialysis MWF. Patient known to Dr. Mcintyre (nephrology) and Dr. Mcnulty (transplant). -Discussed with covering Nephrology service who recommends continuing regular medications and patient to follow up with outpatient power plant assistant. -Plan to discharge patient on regular immunologics and have follow up with outpatient Paramedic, Dr. Mcintyre Per patient: -Tacrolimus 1mg daily -Prednisone 2.5mg (0.5 of a 5mg tablet) twice a day (5) GERD (gastroesophageal reflux disease) ICD Codes: K21.9 - Gastroesophageal reflux disease Status: Chronic Plan: Patient with history of GERD. Medications: * Omeprazole not on hospital formulary. Patient allergic to Pantoprazole. (6) Hyperlipidemia ICD Codes: E78.5 - Hyperlipidemia Status: Chronic Plan: Patient with history of hyperlipidemia. Medications: * Pravastatin 40mg PO HS. (7) FEN/PPX Status: Acute Plan: Fluids: * Patient appears well-hydrated at this time, tolerating oral fluids. Diet: * Renal diet. Electrolytes: * Monitor and replete as necessary. (8) DVT prophylaxis Status: Acute Plan: Bilateral SCDs. Heparin 5,000 units q8hrs, discontinued at discharge (Shade Suh MD R2) Problem List: (1) Hypertensive emergency without congestive heart failure ICD Codes: I16.1 - Hypertensive emergency Status: Acute Plan: On admission, patient with initial systolic blood pressure of 248 and chest pain, concerning for possible hypertensive emergency. Patient is s/p renal transplant failure currently on hemodialysis MWF. 10/29: BP 137/57 during encounter. Patient denies chest pain. Admission Labs: * H/H 11.1/35.9, MCV 67.3. * Chloride 110, BUN 68, creatinine 8.85, glucose 123, alk phos 145. * Phosphorus 5.5. * Albumin: 3.3. * Troponin: 0.17 -> 1.06 -> 0.72 Labs 10/29: * H/H 10.2/32.7, MCV 66.7. * BUN 49, creatinine 7.38, glucose 83. * Phosphorus 5.6. Imaging: * CXR 10/27: No acute cardiopulmonary abnormality is identified. * Head CT 10/27: No acute intracranial abnormality. 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 No reversible perfusion defects to suggest ischemia. Ejection fraction 55%. Studies: * EKG showed sinus tachycardia to a rate of [address] elevation or depression. No interval abnormalities. (Per medical team read) * Previous ECHO on 10/29/14 showed EF of 65-70% with normal wall motion. Previous stress test showed abnormality and patient was catheterized and stented in LAD and RCA by Dr. Zelaya on 07/02/17. Orders: * Vitals q4hr with blood pressure checks every hour. * MD to be contacted with acute change in status. Medications: * Nitroglycerin drip discontinued 10/28. * Continue home Cardura 4mg PO daily. * Home Metoprolol switched to Carvedilol 12.5mg PO q12hr on 10/28 per nephrology. * Home Losartan increased to 100mg daily. * Continue home Nifedipine 60mg PO BID. * Continue home Hydralazine 100mg PO TID. * Morphine 2mg q2hrs PRN Chest Pain. * Continue home Brilinta 90mg PO BID, Aspirin 81mg, Bumetanide 2mg PO daily and Pravastatin 40mg PO HS. Consults: * Cardiology: Check a Lexiscan nuclear stress test. We will followup as needed for any ischemia demonstrated on nuclear stress testing imaging. We will leave optimization of her multidrug antihypertensive regimen to the medical team. * Nephrology: We will continue HD MWF, next treatment today. AVF right arm functions well, protect that extremity. Avoid IVF administration, gadolinium is contraindicated. High protein diet ordered. Continue Renvela, phosphorus is acceptable. Blood pressure well controlled. Continue current medication. Will monitor. (2) Chest pain ICD Codes: R07.9 - Chest pain, unspecified Status: Acute Plan: Patient complaining of intermittent chest pain despite nitroglycerin drip on day of admission. Patient denies chest pain overnight. See Plan above. (3) Hypertensive nephropathy ICD Codes: I12.9 - Hypertensive chronic kidney disease with stage 1 through stage 4 chronic kidney disease, or unspecified chronic kidney disease Status: Chronic Plan: Patient with history of failed renal transplant due to hypertensive nephropathy currently on dialysis MWF. Patient known to Dr. Mcintyre (nephrology) and Dr. Mcnulty (transplant). Medications: * Home Velphoro not on hospital formulary. * See BP medication regimen above. Consults: * Nephrology: We will continue HD MWF, next treatment today. AVF right arm functions well, protect that extremity. Avoid IVF administration, gadolinium is contraindicated. High protein diet ordered. Continue Renvela, phosphorus is acceptable. Blood pressure well controlled. Continue current medication. Will monitor. (4) Failed kidney transplant ICD Codes: T86.12 - Kidney transplant failure Status: Chronic Plan: Patient with history of failed renal transplant due to hypertensive nephropathy currently on dialysis MWF. Patient known to Dr. Mcintyre (nephrology) and Dr. Mcnulty (transplant). -Discussed with covering Nephrology service who recommends continuing regular medications and patient to follow up with outpatient power plant assistant. -Plan to discharge patient on regular immunologics and have follow up with outpatient Paramedic, Dr. Mcintyre Per patient: -Tacrolimus 1mg daily -Prednisone 2.5mg (0.5 of a 5mg tablet) twice a day (5) GERD (gastroesophageal reflux disease) ICD Codes: K21.9 - Gastroesophageal reflux disease Status: Chronic Plan: Patient with history of GERD. Medications: * Omeprazole not on hospital formulary. Patient allergic to Pantoprazole. (6) Hyperlipidemia ICD Codes: E78.5 - Hyperlipidemia Status: Chronic Plan: Patient with history of hyperlipidemia. Medications: * Pravastatin 40mg PO HS. (7) FEN/PPX Status: Acute Plan: Fluids: * Patient appears well-hydrated at this time, tolerating oral fluids. Diet: * Renal diet. Electrolytes: * Monitor and replete as necessary. (8) DVT prophylaxis Status: Acute Plan: Bilateral SCDs. Heparin 5,000 units q8hrs, discontinued at discharge See the residents documentation for details. I saw and evaluated the patient regarding the zhu portions of this evaluation and agree with the residents findings and plans as written. Parts of this note were created using [employer] voice recognition software program. While efforts were made to correct any mistakes made by this software, some mistakes, errors, and omissions may remain in the final note that were not caught when the note was originally created. Plan of care was discussed and agreed upon with the patient as specifically documented in the above note. An opportunity to ask questions with explanation was provided. Patient voiced understanding on all information reviewed and discussed. (Constantin Mcnulty MD) Problem Qualifiers (1) Chest pain: Qualified Codes: R07.9 - Chest pain, unspecified (2) GERD (gastroesophageal reflux disease): Qualified Codes: K21.9 - Gastro-esophageal reflux disease without esophagitis (3) Hyperlipidemia: Qualified Codes: E78.5 - Hyperlipidemia, unspecified Shade Suh MD R2 Oct 30, 2017 08:59 Constantin Mcnulty MD Nov 01, 2017 11:21
--- NOTE | 2017-10-30 11:00 | HHI.DCPOC ---
Discharge Care Plan Diagnosis: (1) CKD (chronic kidney disease) (2) Chest pain (3) Hypertensive emergency (4) Hypertensive nephropathy (5) Failed kidney transplant Goals to Promote Your Health * To prevent worsening of your condition and complications * To maintain your health at the optimal level Directions to Meet Your Goals Take your medications as prescribed Follow your dietary instruction Follow activity as directed Keep your appointments as scheduled Take your immunizations and boosters as scheduled If your symptoms worsen call your PCP, if no PCP go to Urgent Care Center or Emergency Room Smoking is Dangerous to Your Health. Avoid second hand smoke Call the 24-hour hour crisis hotline for domestic abuse at Shade Suh MD R2 Oct 30, 2017 11:00
[2017-10-30] MEDS ORDERED: NIFE20 PO (11:10)
[2017-10-30] MEDS ORDERED: BRIL90TA PO (11:10)
[2017-10-30] MEDS ORDERED: VENTAER INH (11:10)
[2017-10-30] MEDS ORDERED: SUCR5CHW PO (11:10)
[2017-10-30] MEDS ORDERED: CARD4TAB2 PO (11:10)
[2017-10-30] MEDS ORDERED: CARV12.5 PO (11:10)
[2017-10-30] MEDS ORDERED: ASPI81 PO (11:10)
[2017-10-30] MEDS ORDERED: OMEP40CA2 PO (11:10)
[2017-10-30] MEDS ORDERED: HYDR-3801 PO (11:10)
[2017-10-30] MEDS ORDERED: LOVA40TA PO (11:10)
[2017-10-30] MEDS ORDERED: BUME2TAB PO (11:10)
--- NOTE | 2017-10-30 11:10 | HHI.DS ---
Discharge Summary Admission Date Oct 27, 2017 at 08:16 Discharge Date: Oct 30, 2017 Admitting Diagnosis renal failure, chest pain, HTN emergency (1) Hypertensive emergency without congestive heart failure Diagnosis: Principal Plan: On admission, patient with initial systolic blood pressure of 248 and chest pain, concerning for possible hypertensive emergency. Patient is s/p renal transplant failure currently on hemodialysis MWF. 10/29: BP 137/57 during encounter. Patient denies chest pain. Admission Labs: * H/H 11.1/35.9, MCV 67.3. * Chloride 110, BUN 68, creatinine 8.85, glucose 123, alk phos 145. * Phosphorus 5.5. * Albumin: 3.3. * Troponin: 0.17 -> 1.06 -> 0.72 Labs 10/29: * H/H 10.2/32.7, MCV 66.7. * BUN 49, creatinine 7.38, glucose 83. * Phosphorus 5.6. Imaging: * CXR 10/27: No acute cardiopulmonary abnormality is identified. * Head CT 10/27: No acute intracranial abnormality. 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 No reversible perfusion defects to suggest ischemia. Ejection fraction 55%. Studies: * EKG showed sinus tachycardia to a rate of [address] elevation or depression. No interval abnormalities. (Per medical team read) * Previous ECHO on 10/29/14 showed EF of 65-70% with normal wall motion. Previous stress test showed abnormality and patient was catheterized and stented in LAD and RCA by Dr. Zelaya on 07/02/17. Orders: * Vitals q4hr with blood pressure checks every hour. * MD to be contacted with acute change in status. Medications: * Nitroglycerin drip discontinued 10/28. * Continue home Cardura 4mg PO daily. * Home Metoprolol switched to Carvedilol 12.5mg PO q12hr on 10/28 per nephrology. * Home Losartan increased from 50mg to 100mg PO daily on 10/28 per nephrology. * Continue home Nifedipine 60mg PO BID. * Continue home Hydralazine 100mg PO TID. * Morphine 2mg q2hrs PRN Chest Pain. * Continue home Brilinta 90mg PO BID, Aspirin 81mg, Bumetanide 2mg PO daily and Pravastatin 40mg PO HS. Consults: * Cardiology: Check a Lexiscan nuclear stress test. We will followup as needed for any ischemia demonstrated on nuclear stress testing imaging. We will leave optimization of her multidrug antihypertensive regimen to the medical team. * Nephrology: We will continue HD MWF, next treatment today. AVF right arm functions well, protect that extremity. Avoid IVF administration, gadolinium is contraindicated. High protein diet ordered. Continue Renvela, phosphorus is acceptable. Blood pressure well controlled. Continue current medication. Will monitor. ICD Codes: I16.1 - Hypertensive emergency Status: Acute (2) Chest pain Diagnosis: Principal Plan: Patient complaining of intermittent chest pain despite nitroglycerin drip on day of admission. Patient denies chest pain overnight. See Plan above. 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 Patient known to Dr. Mcintyre (nephrology) and Dr. Mcnulty (transplant). Medications: * Home Velphoro not on hospital formulary. * See BP medication regimen above. Consults: * Nephrology: We will continue HD MWF, next treatment today. AVF right arm functions well, protect that extremity. Avoid IVF administration, gadolinium is contraindicated. High protein diet ordered. Continue Renvela, phosphorus is acceptable. Blood pressure well controlled. Continue current medication. Will monitor. ICD Codes: I12.9 - Hypertensive chronic kidney disease with stage 1 through stage 4 chronic kidney disease, or unspecified chronic kidney disease Status: Chronic (4) Failed kidney transplant Diagnosis: Secondary Plan: Patient with history of failed renal transplant due to hypertensive nephropathy currently on dialysis MWF. Patient known to Dr. Mcintyre (nephrology) and Dr. Mcnulty (transplant). ICD Codes: T86.12 - Kidney transplant failure Status: Chronic (5) GERD (gastroesophageal reflux disease) Diagnosis: Secondary Plan: Patient with history of GERD. Medications: * Omeprazole not on hospital formulary. Patient allergic to Pantoprazole. ICD Codes: K21.9 - Gastroesophageal reflux disease Status: Chronic (6) Hyperlipidemia Diagnosis: Secondary Plan: Patient with history of hyperlipidemia. Medications: * Pravastatin 40mg PO HS. ICD Codes: E78.5 - Hyperlipidemia Status: Chronic (7) FEN/PPX Diagnosis: Principal Plan: Fluids: * Patient appears well-hydrated at this time, tolerating oral fluids. Diet: * Renal diet. Electrolytes: * Monitor and replete as necessary. Status: Acute (8) DVT prophylaxis Diagnosis: Principal Plan: Bilateral SCDs. Heparin 5,000 units q8hrs. See the residents documentation for details. I saw and evaluated the patient regarding the zhu portions of this evaluation and agree with the residents findings and plans as written. Parts of this note were created using [email or web address] voice recognition software program. While efforts were made to correct any mistakes made by this software, some mistakes, errors, and omissions may remain in the final note that were not caught when the note was originally created. Plan of care was discussed and agreed upon with the patient as specifically documented in the above note. An opportunity to ask questions with explanation was provided. Patient voiced understanding on all information reviewed and discussed. Status: Acute Brief History The patient is a 56 year old female who presents to the [facility] emergency department with a history of chest pain that she reports has been intermittently occurring over the last week. The patient reports that it occurs each night around 3 AM. She reports that it began again this evening and awoke her from sound sleep. On the prior occasions it was relieved Mrs. Martin is a 56 y/o F presenting to the ED with chest pain. She reports that over the last week she has had 2 episodes of nightly chest pain that has been resolving with sublingual nitroglycerin. However last night, her sublingual nitroglycerin did not resolve her symptoms after taking three tablets. She states that the chest pain is 9/10 on the pain scale and had a throbbing characteristic (currently 1/10 on nitroglycerin drip). Pain was located substernally without radiation. She endorses tachycardia, but denies any diaphoresis, NVD, or presyncope. She then called [facility] who transported her to the ER. [facility] reports that her BP was elevated to 248 systolic at the time of their arrival (currently 180s on nitroglycerin drip). Patient denies any headaches, blurry/double vision, or other neurologic symptoms. She has no other acute complaints. Of note, patient was catheterized by Dr. Zelaya in August after failing her stress test. Since that time she has been compliant with Brilinta. She also has a history of failed renal transplant for which she is evaluated by Dr. Mcintyre ( nephrology) and Dr. Mcnulty (transplant). She is currently scheduled for dialysis every MW, but she missed her appointment on Wednesday due to her brother's . She also reports being noncompliant with her Losartan and GERD medication over the last 2 weeks. CBC/BMP: 10/30/17 0319 10/30/17 0319 Significant Findings Laboratory Tests Test 10/27/17 12:30 10/27/17 20:50 10/27/17 20:56 10/28/17 03:35 Troponin I 1.06 NG/ML (0.02-0.05) 0.72 NG/ML (0.02-0.05) Phosphorus Level 5.5 MG/DL (2.5-4.9) 5.1 MG/DL (2.5-4.9) Hemoglobin 9.3 GM/DL (11.6-15.3) Hematocrit 29.5 % (35.0-46.0) Mean Corpuscular Volume 66.1 FL (80.0-100.0) Mean Corpuscular Hemoglobin 20.9 PG (27.0-34.0) Mean Corpuscular Hemoglobin Concent 31.6 % (32.0-36.0) Red Cell Distribution Width 18.6 % (11.6-17.2) Neutrophils (%) (Auto) 77.5 % (16.0-70.0) Monocytes (%) (Auto) 10.5 % (0.0-8.0) Lymphocytes # (Auto) 0.9 TH/MM3 (1.0-4.8) Blood Urea Nitrogen 38 MG/DL (7-18) Creatinine 6.03 MG/DL (0.50-1.00) Random Glucose 67 MG/DL (74-106) Carbon Dioxide Level 18.3 MEQ/L (21.0-32.0) Estimat Glomerular Filtration Rate 9 ML/MIN (>89) Test 10/29/17 03:51 10/30/17 03:19 Hemoglobin 10.2 GM/DL (11.6-15.3) 10.3 GM/DL (11.6-15.3) Hematocrit 32.7 % (35.0-46.0) 32.7 % (35.0-46.0) Mean Corpuscular Volume 66.7 FL (80.0-100.0) 66.0 FL (80.0-100.0) Mean Corpuscular Hemoglobin 20.7 PG (27.0-34.0) 20.7 PG (27.0-34.0) Mean Corpuscular Hemoglobin Concent 31.0 % (32.0-36.0) 31.3 % (32.0-36.0) Red Cell Distribution Width 18.2 % (11.6-17.2) 18.2 % (11.6-17.2) Blood Urea Nitrogen 49 MG/DL (7-18) 31 MG/DL (7-18) Creatinine 7.38 MG/DL (0.50-1.00) 5.46 MG/DL (0.50-1.00) Phosphorus Level 5.6 MG/DL (2.5-4.9) Aspartate Amino Transf (AST/SGOT) 7 U/L (15-37) Alanine Aminotransferase (ALT/SGPT) 6 U/L (10-53) Estimat Glomerular Filtration Rate 7 ML/MIN (>89) 10 ML/MIN (>89) PE at Discharge GENERAL: Well-nourished, well-developed -[place]er female lying in bed in no acute distress. SKIN: Warm and dry. No rash or other abnormality appreciated. HEENT: Atraumatic, normocephalic with extraocular motion intact. No rhinorrhea. No palpable LAD, JVD, or thyroid abnormality appreciated. CARDIOVASCULAR: Tachycardic rate with regular rhythm. 2/6 systolic ejection murmur appreciated at the left sternal border. RESPIRATORY: Clear to auscultation bilaterally with no crackles, wheezes, or rhonchi. No increased work of breathing. GASTROINTESTINAL: Abdomen soft, non-tender, nondistended with positive bowel sounds. No masses appreciated. MUSCULOSKELETAL: No cyanosis or edema. No calf tenderness. NEUROLOGICAL: Awake. Alert. Oriented x3. Speech- Fluent. No dysarthria or dysphasia. Good focus, attention, and comprehension. Cranial nerves- 2 through 12 intact. Hospital Course Patient was admitted for hypertensive emergency and and chest pain. ACS rule out was initiated cardiology consulted. has recommended a Lexiscan performed on hospital day 2 which showed a matched defect involving the apex related to likely old infarct with no reversible perfusion defects. Patient's chest pain resolved with nitroglycerin drip which was weaned appropriately. Patient's blood pressure normalized with drip as well. Patient was slowly restarted on oral medications after 24 hours of parenteral therapy. Patient's losartan was increased to 100 mg daily and her metoprolol was switched to carvedilol per nephrology. Patient was recommended discharge follow-up with cardiology as well as her PCP for further management. 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 Patient completed hemodialysis on Wednesday as well as Wednesday without complication. Nephrology switched her metoprolol to carvedilol due to the dialysis as well as increased her losartan for increased blood pressure control. Patient's immunologic's ( Prograf and prednisone) were initially held, but continued upon discharge. Patient follow-up with personal instrumentation and controls technician for further management at this time. At the time of discharge patient was given 3 months of prescriptions for all medications as she will be meeting a new physician at the [facility]. Patient was started on carvedilol 12.5 mg twice daily as well as increasing her losartan to 100 mg daily. All other home medications were continued as reported by the patient. She will follow-up with cardiology, nephrology, and her new PCP within 1 week for further management at this time. Pt Condition on Discharge: Stable Discharge Disposition: Discharge Home Discharge Instructions DIET: Follow Instructions for: As Tolerated, No Restrictions Speech Therapy-Diet Recommends: Regular, Other (Renal Failure Diet) Activities you can perform: Regular-No Restrictions Follow up Referrals: Cardiology - 1 Week with Edgar Le MD Nephrology - 1 Week with Francis Mcintyre MD PCP Follow-up - 3-5 Days New Medications: Omeprazole (Omeprazole) 40 Mg Cap 40 MG PO DAILY, #90 CAP 0 Refills Prednisone (Prednisone) 5 Mg Tab 5 MG PO BID, #90 TAB 0 Refills Please take half a tablet (2.5mg) twice a day. Tacrolimus (Tacrolimus) 1 Mg Cap 1 MG PO DAILY for Prevent Transplant Reject, #90 CAP 0 Refills Carvedilol (Coreg) 12.5 Mg Tab 12.5 MG PO Q12HR, #180 TAB Losartan (Cozaar) 50 Mg Tab 100 MG PO DAILY, #90 TAB 0 Refills Continued Medications: Albuterol 18 GM Inh (Ventolin Hfa 18 GM Inh) 90 Mcg/Act Aer 2 PUFF INH Q4-6H PRN for SHORTNESS OF BREATH, #1 INHALER 1 Refill (This prescription has been renewed) Aspirin (Tgt Aspirin) 81 Mg Chw 81 MG PO DAILY for CAD, #90 EA 3 Refills (This prescription has been renewed) Bumetanide (Bumetanide) 2 Mg Tab 2 MG PO DAILY, #90 TAB 0 Refills (This prescription has been renewed) Cinacalcet (Sensipar) 30 Mg Tab 30 MG PO DAILY, #30 TAB 0 Refills Doxazosin (Cardura) 4 Mg Tab 4 MG PO DAILY, #90 TAB 0 Refills (This prescription has been renewed) Hydralazine (Hydralazine) 100 Mg Tab 100 MG PO TID for Blood Pressure Management, #270 TAB 0 Refills (This prescription has been renewed) Take with meals Lovastatin (Lovastatin) 40 Mg Tab 40 MG PO HS for Cholesterol Management, #90 TAB 0 Refills (This prescription has been renewed) Nifedipine (Nifedipine) 20 Mg Cap 60 MG PO BID for Chest Pain, #180 CAP 0 Refills (This prescription has been renewed) Sucroferric Oxyhydroxide (Velphoro) 500 Mg Chew 500 MG PO DAILY for High phosphate levels, #90 TAB 0 Refills (This prescription has been renewed) Ticagrelor (Brilinta) 90 Mg Tab 90 MG PO BID for CAD, #180 TAB 0 Refills (This prescription has been renewed) Triamcinolone Topical (Triamcinolone Topical) 0.1% Lotn 1 APPLIC TOPICAL TID for Inflammation, #60 ML 0 Refills [lidocainprilo] () Discontinued Medications: Losartan (Losartan) 50 Mg Tab 50 MG PO DAILY for Blood Pressure Management, #30 TAB 0 Refills Metoprolol Tartrate (Metoprolol Tartrate) 25 Mg Tab 12.5 MG PO BID for CAD, #90 TAB 3 Refills 25mg tablet, 1/2 tab (12.5mg) BID Omeprazole (Omeprazole) 20 Mg Tab 40 MG PO BID, #30 TAB 0 Refills Prednisone (Prednisone) 10 Mg Tab 5 MG PO DAILY, TAB 0 Refills Tacrolimus (Tacrolimus) 5 Mg Cap 5 MG PO qod for Prevent Transplant Reject, #60 CAP 0 Refills take every other day Shade Suh MD R2 Oct 30, 2017 11:10
[2017-10-30] MEDS ORDERED: TACR1CAP PO (12:17)
[2017-10-30] MEDS ORDERED: COZA50TA PO (12:17)
[2017-10-30] MEDS ORDERED: PRED5TAB PO (12:20)
--- NOTE | 2017-10-30 13:34 | HHI.NPPN ---
Subjective Renal Failure: End Stage Renal Disease Additional Remarks No acute complaints Review of Systems General Constitutional: Fatigue Respiratory Respiratory Remarks Denies SOB Cardiovascular Cardiac Remarks denies CP Gastrointestinal GI Remarks denies abdominal pain Objective Data Data Vital Signs Date Time Temp Pulse Resp B/P (MAP) Pulse Ox O2 Delivery O2 Flow Rate FiO2 10/30/17 11:35 96 Room Air 10/30/17 11:32 98.2 69 18 124/48 (73) 96 10/30/17 11:00 69 10/30/17 09:30 124/39 (67) 10/30/17 09:10 95 21 10/30/17 08:00 98.1 72 18 147/55 (85) 95 10/30/17 07:32 95 Room Air 10/30/17 07:00 73 10/30/17 03:00 94 Room Air 10/30/17 03:00 71 10/30/17 03:00 98.2 71 18 123/49 (73) 94 10/29/17 23:00 98.3 71 18 149/56 (87) 93 10/29/17 23:00 71 10/29/17 23:00 97 Room Air 10/29/17 22:13 21 10/29/17 19:00 98 Room Air 10/29/17 19:00 75 10/29/17 19:00 98.1 75 24 120/50 (73) 98 10/29/17 15:00 97 Room Air 10/29/17 15:00 97.9 71 20 131/49 (76) 97 10/29/17 15:00 71 -: 10/30/17 0319 10/30/17 0319 Physical Exam General Appearance: Well Developed Neck Neck Exam: Neck Supple Pulmonary Resp Exam: Clear Bilaterally, Breath Sounds Equal Cardiology CV Exam: Regular, Normal Sinus Rhythm Gastrointestinal/Abdomen GI Exam: Soft, Non-Tender, Bowel Sounds Present Extremeties Extremities Exam: No Edema Neurologic Neuro Exam: Alert, Awake, Oriented, Speech Clear, Moving All Extremities Assessment/Plan Problem List: (1) ESRD (end stage renal disease) on dialysis ICD Codes: N18.6 - End stage renal disease; Z99.2 - Dependence on renal dialysis Status: Chronic Plan: HD MWF AVF right arm functions well, protect that extremity. Avoid IVF administration, gadolinium is contraindicated. High protein diet ordered. Continue Renvela, phosphorus is acceptable. Hemodialysis done yesterday. Planned D/C today - continue outpatient MWF HD (2) Chest pain ICD Codes: R07.9 - Chest pain, unspecified Status: Acute Plan: Seen by cardiology. s/p nuclear stress test. (3) Essential hypertension ICD Codes: I10 - Essential hypertension Status: Acute Plan: Blood pressure well controlled Continue current medication Will monitor (4) Anemia ICD Codes: D64.9 - Anemia, unspecified Status: Chronic Plan: Epogen with dialysis Problem Qualifiers (1) Chest pain: Qualified Codes: R07.9 - Chest pain, unspecified Jesus Mcintyre MD Oct 30, 2017 13:34
== END 2017-10-30 14:20 | disposition home or self-care (01) | DRG 682 ==
LOC: NEPE 06:26 → NEDA 08:16 → HCIS 12:49 → HCVI 19:07
PROVIDERS: ADMIT Family Medicine; ATTEND Family Medicine
PROC: 5A1D70Z Performance of Urinary Filtration, Intermittent, Less than 6 Hours Per Day (ICD-10-PCS; principal; 2017-10-27)
DX: I12.0 Hypertensive chronic kidney disease with stage 5 chronic kidney disease or end stage renal disease (principal); N18.6 End stage renal disease; T86.12 Kidney transplant failure; E11.22 Type 2 diabetes mellitus with diabetic chronic kidney disease; I16.1 Hypertensive emergency; Z99.2 Dependence on renal dialysis; J42 Unspecified chronic bronchitis; D64.9 Anemia, unspecified; E78.5 Hyperlipidemia, unspecified; I25.10 Atherosclerotic heart disease of native coronary artery without angina pectoris; K21.9 Gastro-esophageal reflux disease without esophagitis; G62.9 Polyneuropathy, unspecified; F32.9 Major depressive disorder, single episode, unspecified; F41.9 Anxiety disorder, unspecified; G89.29 Other chronic pain; M54.9 Dorsalgia, unspecified; R07.9 Chest pain, unspecified; R00.0 Tachycardia, unspecified; Z86.718 Personal history of other venous thrombosis and embolism; Z86.73 Personal history of transient ischemic attack (TIA), and cerebral infarction without residual deficits; Z95.5 Presence of coronary angioplasty implant and graft; Z91.19 Patient's noncompliance with other medical treatment and regimen; Z91.14 Patient's other noncompliance with medication regimen; Z79.02 Long term (current) use of antithrombotics/antiplatelets; Z79.82 Long term (current) use of aspirin; Z88.0 Allergy status to penicillin; Z88.8 Allergy status to other drugs, medicaments and biological substances
CPT/HCPCS: 36591; 70450; 71045; 78452; 80048; 80053; 80069; 80074; 82550; 83690; 83735; 83880; 84100; 84484; 85025; 85027; 85610; 85730; 90935; 93005; 93017; 94150; 94618; 96365; 96374; 96375; A9502; J1644; J2270; J2785; J7030; J7507; J7512; P9047; Q4081

== ENCOUNTER 2017-10-31 23:51 | Inpatient (IN) | payer MEDICARE, OTHER ==
[~2017-10-31] VITALS: Ht 165.1 cm; Wt 78.0 kg
[~2017-10-31 23:51] MED LIST changes: +CARV12.5 PO; +CINA30 PO; -CLEO1GEL TOPICAL; +COZA50TA PO; -LOSA50TA PO; -METO25TA3 PO; -MYCO500 PO; -NIFE1TAB86 PO; +NIFE20 PO; -OMEP20TA93 PO; +OMEP40CA2 PO; -PRED10 PO; +PRED5TAB PO; +SUCR5CHW PO; +TACR1CAP PO; -TACR5CAP PO; -VITA100018 PO; +[UNRECOGNIZED DRUG - OTHER]
[2017-10-31 23:54] VITALS: BP 170/76; PULSE 101; RESP 20; TEMP 98.3; O2SAT 100
[2017-11-01] VITALS (13 sets, daily range): BP systolic 108–180; BP diastolic 52–75; PULSE 70–106; RESP 16–20; TEMP 98.1–99; O2SAT 98–100
[2017-11-01] MEDS ORDERED: CARVEDILOL 12.5 MG TAB PO ONE (00:15)
[2017-11-01] MEDS ORDERED: SODIUM CHLORIDE 0.9% FLUSH 10 ML FLUSH IVF PRN (00:15)
[2017-11-01] MEDS ORDERED: LOSARTAN 50 MG TAB PO ONE (00:15)
[2017-11-01] MEDS: NITROGLYCERIN 0.4 MG SL 25 TABS/BTL SL SCH ×4 (00:20→00:35)
[2017-11-01 00:38] LABS: AUTOMATED NEUTROPHIL # 9.8 TH/MM3 (1.8-7.7); BASOPHIL # 0.1 TH/MM3 (0-0.2); BASOPHIL % 0.8 % (0.0-2.0); EOSINOPHIL # 0.2 TH/MM3 (0-0.4); EOSINOPHIL % 1.6 % (0.0-4.0); HEMATOCRIT 31.9 % (35.0-46.0); HEMOGLOBIN 10.5 GM/DL (11.6-15.3); LYMPH % 10.6 % (9.0-44.0); LYMPHOCYTE # 1.3 TH/MM3 (1.0-4.8); MEAN CELL VOLUME 66.1 FL (80.0-100.0); MEAN CORPUSCULAR HEMOGLOBIN 21.9 PG (27.0-34.0); MEAN CORPUSCULAR HGB CONC 33.1 % (32.0-36.0); MEAN PLATELET VOLUME 8.5 FL (7.0-11.0); MONO % 8.1 % (0.0-8.0); NEUT % 78.9 % (16.0-70.0); PLATELET COUNT 327 TH/MM3 (150-450); RED BLOOD COUNT 4.82 MIL/MM3 (4.00-5.30); RED CELL DISTRIBUTION WIDTH 17.7 % (11.6-17.2); WHITE BLOOD COUNT 12.5 TH/MM3 (4.0-11.0)
--- NOTE | 2017-11-01 00:38 | PD ---
HPI Chief Complaint: Chest Pain Time Seen by Provider: 00:03 Travel History International Travel<30 days: No Contact w/Intl Traveler<30days: No Traveled to known affect area: No History of Present Illness HPI Is a 56-year-old woman presents to the emergency department when initially admitted to the hospital with high blood pressure and chest pain. She is a history of end-stage renal disease. She has a history of CAD. She had a stress test that showed fixed ischemia but no reversible ischemia. She had one episode of chest pain since she has been home in the past couple days, took nitroglycerin and resolved. Today she had chest pain again, took nitroglycerin did not resolve. She still having chest pain now. No shortness of breath. Pains in the mid part of her chest. No radiation. No other aggravating or alleviating factors. She has otherwise been feeling generally well and healthy. Her primary physician is Dr. Durbin, her senior qa analyst is Dr. Lopez. She gets dialysis Wednesday. She also has a history of kidney transplant and is on immune suppression. History Past Medical History Narrative Medical Diabetes End-stage renal disease, on hemodialysis Wednesday, kidney transplant 2009, on immunosuppression CAD, history of stent June 2017, follows with Dr. Lopez CVA Hypertension Tetanus Vaccination: Unknown Influenza Vaccination: Yes Menopausal: Yes : 1 Para: 0 Social History Alcohol Use: No Tobacco Use: No Allergies-Medications (Allergen,Severity, Reaction): Coded Allergies: pantoprazole (Verified Allergy, Severe, Seizures, 10/31/17) penicillin G (Unverified Allergy, Severe, Seizures, 10/31/17) Reported Meds & Prescriptions Reported Meds & Active Scripts Active Prednisone 5 Mg Tab 5 Mg PO BID Please take half a tablet (2.5mg) twice a day. Tacrolimus 1 Mg Cap 1 Mg PO DAILY Cozaar (Losartan Potassium) 50 Mg Tab 100 Mg PO DAILY Omeprazole 40 Mg Cap 40 Mg PO DAILY Coreg (Carvedilol) 12.5 Mg Tab 12.5 Mg PO Q12HR Velphoro (Sucroferric Oxyhydroxide) 500 Mg Chew 500 Mg PO DAILY Nifedipine 20 Mg Cap 60 Mg PO BID Tgt Aspirin (Aspirin) 81 Mg Chw 81 Mg PO DAILY Brilinta (Ticagrelor) 90 Mg Tab 90 Mg PO BID Ventolin Hfa 18 GM Inh (Albuterol Sulfate) 90 Mcg/Act Aer 2 Puff INH Q4-6H PRN Hydralazine (Hydralazine HCl) 100 Mg Tab 100 Mg PO TID Take with meals Cardura (Doxazosin Mesylate) 4 Mg Tab 4 Mg PO DAILY Bumetanide 2 Mg Tab 2 Mg PO DAILY Lovastatin 40 Mg Tab 40 Mg PO HS Triamcinolone Topical (Triamcinolone Acetonide) 0.1% Lotn 1 Applic TOPICAL TID Reported [lidocainprilo] Sensipar (Cinacalcet) 30 Mg Tab 30 Mg PO DAILY Review of Systems Except as stated in HPI: all other systems reviewed are Neg Physical Exam Narrative GENERAL: Well-appearing 56-year-old woman, no acute distress. SKIN: Focused skin assessment warm/dry. HEAD: Atraumatic. Normocephalic. EYES: Pupils equal and round. No scleral icterus. No injection or drainage. ENT: No nasal bleeding or discharge. Mucous membranes pink and moist. NECK: Trachea midline. No JVD. CARDIOVASCULAR: Regular rate and rhythm. No murmur appreciated. RESPIRATORY: No accessory muscle use. Clear to auscultation. Breath sounds equal bilaterally. GASTROINTESTINAL: Abdomen soft, non-tender, nondistended. Hepatic and splenic margins not palpable. MUSCULOSKELETAL: No obvious deformities. No clubbing. No cyanosis. No edema. NEUROLOGICAL: Awake and alert. No obvious cranial nerve deficits. Motor grossly within normal limits. Normal speech. PSYCHIATRIC: Appropriate mood and affect; insight and judgment normal. Data Data Last Documented VS Vital Signs Date Time Temp Pulse Resp B/P (MAP) Pulse Ox O2 Delivery O2 Flow Rate FiO2 11/01/17 00:34 99 18 165/74 (104) 100 Room Air 10/31/17 23:54 98.3 Orders Orders Electrocardiogram (11/01/17 00:12) Complete Blood Count With Diff (11/01/17 00:12) Comprehensive Metabolic Panel (11/01/17 00:12) Magnesium (Mg) (11/01/17 00:12) Prothrombin Time / Inr (Pt) (11/01/17 00:12) Act Partial Throm Time (Ptt) (11/01/17 00:12) Troponin I (11/01/17 00:12) Chest, Single Ap (11/01/17 00:12) Ecg Monitoring (11/01/17 00:12) Iv Access Insert/Monitor (11/01/17 00:12) Oximetry (11/01/17 00:12) Oxygen Administration (11/01/17 00:12) Sodium Chloride 0.9% Flush (Ns Flush) (11/01/17 00:15) Nitroglycerin Sl (Nitrostat Sl) (11/01/17 00:15) Carvedilol (Coreg) (11/01/17 00:15) Losartan (Cozaar) (11/01/17 00:15) Admit Order (Ed Use Only) (11/01/17 ) Labs Laboratory Tests Test 11/01/17 00:26 White Blood Count 12.5 TH/MM3 Red Blood Count 4.82 MIL/MM3 Hemoglobin 10.5 GM/DL Hematocrit 31.9 % Mean Corpuscular Volume 66.1 FL Mean Corpuscular Hemoglobin 21.9 PG Mean Corpuscular Hemoglobin Concent 33.1 % Red Cell Distribution Width 17.7 % Platelet Count 327 TH/MM3 Mean Platelet Volume 8.5 FL Neutrophils (%) (Auto) 78.9 % Lymphocytes (%) (Auto) 10.6 % Monocytes (%) (Auto) 8.1 % Eosinophils (%) (Auto) 1.6 % Basophils (%) (Auto) 0.8 % Neutrophils # (Auto) 9.8 TH/MM3 Lymphocytes # (Auto) 1.3 TH/MM3 Monocytes # (Auto) 1.0 TH/MM3 Eosinophils # (Auto) 0.2 TH/MM3 Basophils # (Auto) 0.1 TH/MM3 CBC Comment DIFF FINAL Differential Comment Prothrombin Time 10.1 SEC Prothromb Time International Ratio 1.0 RATIO Activated Partial Thromboplast Time 23.1 SEC Blood Urea Nitrogen 55 MG/DL Creatinine 8.40 MG/DL Random Glucose 131 MG/DL Total Protein 7.6 GM/DL Albumin 3.8 GM/DL Calcium Level 8.8 MG/DL Magnesium Level 1.8 MG/DL Alkaline Phosphatase 130 U/L Aspartate Amino Transf (AST/SGOT) 11 U/L Alanine Aminotransferase (ALT/SGPT) 8 U/L Total Bilirubin 0.3 MG/DL Sodium Level 132 MEQ/L Potassium Level 5.1 MEQ/L Chloride Level 98 MEQ/L Carbon Dioxide Level 20.0 MEQ/L Anion Gap 14 MEQ/L Estimat Glomerular Filtration Rate 6 ML/MIN Troponin I 0.06 NG/ML [facility] Medical Decision Making Medical Screen Exam Complete: Yes Emergency Medical Condition: Yes Interpretation(s) Review of initial EKG: Sinus tachycardia rate of 103, very rough baseline, difficult to interpret, no definite evidence acute ischemia. Some lateral ST depressions. Review of repeat EKG from 0022 shows sinus tachycardia rate of 102, normal axis , normal intervals, non-nonspecific lateral ST changes. No definite evidence of acute ischemia. LABS: CBC is remarkable for mild anemia. CMP remarkable for elevated BUN and creatinine Troponin 0 0.06 Coags unremarkable Chest x-ray negative Differential Diagnosis Chest pain, angina, unstable angina anxiety, cryptitis, gastritis, other Narrative Course Medical decision making 48-year-old woman with known CAD presents emerged from ongoing chest pain. Just admitted for chest pains having high blood pressure. She is overall well. She had an elevated troponin and Lexiscan showed no reversible ischemia. Pain resolved after nitroglycerin here. Will check labs, x-ray, will plan repeat admission for evaluation by cardiology. Diagnosis Primary Impression: Abnormal stress test Additional Impressions: CAD (coronary artery disease) Chest pain Admitting Information Admitting Physician Requests: it Jose Banks MD Nov 01, 2017 00:38
[2017-11-01 00:43] LABS: PROTHROMBIN TIME - PATIENT 10.1 SEC (9.8-11.6)
[2017-11-01 01:02] LABS: ALBUMIN 3.8 GM/DL (3.4-5.0); ALKALINE PHOSPHATASE 130 U/L (45-117); ALT (GPT) 8 U/L (10-53); AST (GOT) 11 U/L (15-37); BLOOD UREA NITROGEN 55 MG/DL (7-18); CALCIUM 8.8 MG/DL (8.5-10.1); CHLORIDE 98 MEQ/L (98-107); GLOMERULAR FILTRATION RATE 6 ML/MIN (>89); GLUCOSE,RANDOM 131 MG/DL (74-106); MAGNESIUM 1.8 MG/DL (1.5-2.5); SODIUM (NA) 132 MEQ/L (136-145); TOTAL BILIRUBIN ADULT 0.3 MG/DL (0.2-1.0); TOTAL PROTEIN 7.6 GM/DL (6.4-8.2); TROPONIN I 0.06 NG/ML (0.02-0.05)
--- NOTE | 2017-11-01 01:11 | RADRPT ---
EXAM DATE: 11/01/2017 12:34 AM EDT AGE/SEX: 56 years / Female INDICATIONS: Chest pain. CLINICAL DATA: This is the patient's initial encounter. Patient reports that signs and symptoms have been present for 1 day and indicates a pain score of 3/10. MEDICAL/SURGICAL HISTORY: Diabetes mellitus type II. Hypertension. Cerebrovascular disease. C oronary artery stent. COMPARISON: [facility] [place], CHEST SINGLE AP, 10/27/2017. . FINDINGS: A single AP view of the chest demonstrates the lungs to be symmetrically aerated without evidence of mass, infiltrate or effusion. The cardiomediastinal contours are unremarkable. Osseous structures a re intact. CONCLUSION: No acute cardiopulmonary process. Electronically signed by: Lucian Rust MD 11/01/2017 1:09 AM EDT
[2017-11-01] MEDS ORDERED: SODIUM CHLORIDE 0.9% FLUSH 10 ML FLUSH IV FLUSH PRN ×2 (02:45→08:15)
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
[2017-11-01] MEDS ORDERED: DOCUSATE SODIUM 50 MG/SENNA 8.6 MG TAB PO PRN (03:30)
[2017-11-01] MEDS ORDERED: SENNOSIDES 8.6 MG TAB PO PRN (03:30)
[2017-11-01] MEDS ORDERED: BISACODYL 10 MG SUPP RECTAL PRN (03:30)
[2017-11-01] MEDS ORDERED: ONDANSETRON ODT 4 MG TAB PO PRN (03:30)
[2017-11-01] MEDS ORDERED: MAGNESIUM HYDROXIDE SUSP 30 ML CUP PO PRN (03:30)
[2017-11-01] MEDS ORDERED: NITROGLYCERIN 0.4 MG SL 25 TABS/BTL SL PRN ×2 (03:30→08:15)
[2017-11-01] MEDS ORDERED: ACETAMINOPHEN 325 MG TAB PO PRN ×2 (03:30→08:15)
[2017-11-01] MEDS ORDERED: MORPHINE SULFATE 4 MG/ML INJ IV PUSH PRN (03:30)
[2017-11-01] MEDS ORDERED: ALBUTEROL SULFATE 90 MCG/ACT HFA 8 GM INHALER INH PRN (03:45)
[2017-11-01] MEDS: HEPARIN SODIUM - SQ 10,000 UNITS/ML VIAL SQ SCH ×3 (03:55→22:23)
[2017-11-01] MEDS ORDERED: LOPERAMIDE HCL 2 MG CAP PO PRN (04:00)
[2017-11-01] MEDS ORDERED: cloNIDine HCL 0.1 MG TAB PO PRN ×2 (04:00→08:15)
[2017-11-01] MEDS ORDERED: SODIUM CHLOR 0.9% 1000 ML INJ 1,000 ML OTHER PRN ×2 (08:13)
[2017-11-01] MEDS ORDERED: SODIUM CHLOR 0.9% 1000 ML INJ 1,000 ML IV PRN (08:13)
[2017-11-01] MEDS ORDERED: EPOETIN ALFA 10,000 UNITS/ML VIAL IV PUSH PRN (08:15)
[2017-11-01] MEDS ORDERED: ONDANSETRON HCL 4 MG/2 ML VIAL IV PUSH PRN (08:15)
[2017-11-01] MEDS ORDERED: HEPARIN SODIUM - IV 10,000 UNITS/10 ML VIAL IV FLUSH PRN (08:15)
[2017-11-01] MEDS ORDERED: GELATIN 12 MM/7 MM FOAM TOP PRN (08:15)
[2017-11-01] MEDS ORDERED: MANNITOL 12.5 GM/50 ML VIAL IV PRN (08:15)
[2017-11-01] MEDS ORDERED: ALBUMIN 25% INJ 100 ML IV PRN (08:15)
[2017-11-01] MEDS ORDERED: diphenhydrAMINE HCL 25 MG CAP PO PRN (08:15)
[2017-11-01 08:16] LABS: AUTOMATED NEUTROPHIL # 7.6 TH/MM3 (1.8-7.7); BASOPHIL % 0.5 % (0.0-2.0); EOSINOPHIL # 0.3 TH/MM3 (0-0.4); EOSINOPHIL % 3.1 % (0.0-4.0); HEMATOCRIT 30.9 % (35.0-46.0); HEMOGLOBIN 9.7 GM/DL (11.6-15.3); LYMPH % 14.2 % (9.0-44.0); LYMPHOCYTE # 1.5 TH/MM3 (1.0-4.8); MEAN CELL VOLUME 67.3 FL (80.0-100.0); MEAN CORPUSCULAR HEMOGLOBIN 21.2 PG (27.0-34.0); MEAN CORPUSCULAR HGB CONC 31.5 % (32.0-36.0); MEAN PLATELET VOLUME 8.2 FL (7.0-11.0); MONO % 9.7 % (0.0-8.0); NEUT % 72.5 % (16.0-70.0); PLATELET COUNT 335 TH/MM3 (150-450); RED CELL DISTRIBUTION WIDTH 18.3 % (11.6-17.2); WHITE BLOOD COUNT 10.4 TH/MM3 (4.0-11.0)
[2017-11-01 08:48] LABS: BICARBONATE 23.3 MEQ/L (21.0-32.0); CALCIUM 8.2 MG/DL (8.5-10.1); CREATININE 8.7 MG/DL (0.50-1.00); MAGNESIUM 1.9 MG/DL (1.5-2.5)
[2017-11-01 08:54] LABS: TROPONIN I 0.1 NG/ML (0.02-0.05)
[2017-11-01] MEDS: VELPHORO 500 MG PO SCH (09:00)
[2017-11-01] MEDS: PRILOSEC 40 MG PO SCH (09:00)
[2017-11-01] MEDS ORDERED: CINACALCET HYDROCHLORIDE 30 MG TAB PO SCH (09:00)
--- NOTE | 2017-11-01 10:44 | MB ---
cc: Edgar Le MD DATE: 11/01/2017 REASON FOR CONSULTATION: Chest pain. HISTORY OF PRESENT ILLNESS: The patient is a very pleasant 56-year-old woman known to me who has a history of end-stage renal disease with failed renal transplantation and coronary artery disease status post recent stenting this past June and chest pain. The patient was just admitted for chest pain 5 days ago with a full consultation and nuclear stress test, please see that report for further details. She presents again with further chest pain, but she says she did not receive her antihypertensive medication at her pharmacy. She does note that her chest pain does appear to happen when she is hypertensive and is relieved by nitroglycerin, which also lowers her blood pressure. Currently, she is asymptomatic, being taken to dialysis. No residual chest pain or shortness of breath. PAST MEDICAL HISTORY: 1. Coronary artery disease, status post stent of the mid LAD 07/02/2017 with a Resolute Grzegorz stent, as well as the mid right coronary artery with a Resolute Grzegorz stent. 2. Hypertension. 3. Hyperlipidemia. 4. CVA. 5. GERD. 6. End-stage renal disease with failed renal transplantation for diabetes. CURRENT MEDICATIONS: 1. Pravachol 40 mg at bedtime. 2. Afrin 1 mg daily. 3. Bumex 2 mg daily. 4. Coreg 12.5 mg b.i.d. 5. Cardura 4 mg daily. 6. Apresoline 100 mg t.i.d. 7. Cozaar 100 mg daily. 8. Nifedipine 60 mg b.i.d. 9. Prograf 1 mg daily. 10. Prednisone 5 mg b.i.d. 11. Brilinta 90 mg b.i.d. ALLERGIES: PANTOPRAZOLE AND PENICILLIN. PHYSICAL EXAMINATION: VITAL SIGNS: Afebrile, pulse 78, respiratory rate 16, BP 128/60, saturating 100 on room air. GENERAL: A pleasant woman in no distress. NECK: No JVD. LUNGS: Clear to auscultation bilaterally. CARDIOVASCULAR: Regular rate and rhythm. No murmur appreciated. ABDOMEN: Benign. EXTREMITIES: No edema. LABORATORY DATA: Sodium 135, potassium 501, chloride 100, bicarbonate 23.3, BUN 57, creatinine 8.7. Troponin is 0.1. Previous admission had a troponin of 1.06. INR is 1.0. White count 10.4, hematocrit 30.9, platelets 335. EKG shows sinus rhythm with slight anterolateral ST depressions. IMPRESSION: Chest pain. The patient's chest pain has mixed typical and atypical features. It is relieved by nitroglycerin, but it does seem to happen when she is most hypertensive and the nitroglycerin will obviously bring down her blood pressure significantly. Furthermore, she was given antihypertensive medication at her last admission, which was not filled. I will try adding isosorbide to her regimen for long-acting nitroglycerin and blood pressure control. If she continues to have symptoms, she may require another cardiac catheterization. I have asked Dr. Zelaya to review his catheterization films to ensure there are no further issues, which he feels might require attention. If her blood pressures are stable and she remains asymptomatic, I would be comfortable with her going home on the added medication. Followup with me in the office. If she continues to have chest pain, we will likely have to plan for a cardiac catheterization at some point. Thank you again for the opportunity to participate in this patient's care. MD YAMILET Rodriguez/ASHELY , 10:10 AM , 10:43 AM
--- NOTE | 2017-11-01 11:37 | PD.CONS ---
HPI Service Nephrology Consult Requested By ER Reason for Consult ESRD Primary Care Physician Yas Santos MD History of Present Illness Patient is a 56 year old BF with ESRD, HTN, DM who was discharged last week from the hospital and came back having chest pain, uncontrolled hypertension, she could not fill her prescriptions yet, she states she is not short of breath and denies cough, fever, chills. Her dialysis is on M,W,F. Review of Systems Constitutional: COMPLAINS OF: Fatigue Cardiovascular: COMPLAINS OF: Chest pain Musculoskeletal: COMPLAINS OF: Joint pain, Muscle aches Neurologic: COMPLAINS OF: Abnormal gait Past Family Social History Allergies: Coded Allergies: pantoprazole (Verified Allergy, Severe, Seizures, 10/31/17) penicillin G (Unverified Allergy, Severe, Seizures, 10/31/17) Past Medical History ESRD HTN DM Failed kidney Transplant Anemia HPTH CVA CAD S/P Stent Past Surgical History AVF Rt arm KIDNEY Transplant Reported Medications Reported Meds & Active Scripts Active Prednisone 5 Mg Tab 5 Mg PO BID Please take half a tablet (2.5mg) twice a day. Tacrolimus 1 Mg Cap 1 Mg PO DAILY Cozaar (Losartan Potassium) 50 Mg Tab 100 Mg PO DAILY Omeprazole 40 Mg Cap 40 Mg PO DAILY Coreg (Carvedilol) 12.5 Mg Tab 12.5 Mg PO Q12HR Velphoro (Sucroferric Oxyhydroxide) 500 Mg Chew 500 Mg PO DAILY Nifedipine 20 Mg Cap 60 Mg PO BID Tgt Aspirin (Aspirin) 81 Mg Chw 81 Mg PO DAILY Brilinta (Ticagrelor) 90 Mg Tab 90 Mg PO BID Ventolin Hfa 18 GM Inh (Albuterol Sulfate) 90 Mcg/Act Aer 2 Puff INH Q4-6H PRN Hydralazine (Hydralazine HCl) 100 Mg Tab 100 Mg PO TID Take with meals Cardura (Doxazosin Mesylate) 4 Mg Tab 4 Mg PO DAILY Bumetanide 2 Mg Tab 2 Mg PO DAILY Lovastatin 40 Mg Tab 40 Mg PO HS Triamcinolone Topical (Triamcinolone Acetonide) 0.1% Lotn 1 Applic TOPICAL TID Reported [lidocainprilo] Sensipar (Cinacalcet) 30 Mg Tab 30 Mg PO DAILY Active Ordered Medications Current Medications Medications (Trade) Dose Ordered Sig/Jonel Route Start Time Stop Time Status Last Admin (NS Flush) 2 ml UNSCH PRN IV FLUSH 11/01/17 02:45 (NS Flush) 2 ml BID IV FLUSH 11/01/17 09:00 (Nitrostat Sl) 0.4 mg Q5M PRN SL 11/01/17 03:30 11/01/17 04:08 (Morphine Inj) 2 mg Q30M PRN IV PUSH 11/01/17 03:30 11/01/17 03:56 (Zofran Odt) 4 mg Q6H PRN PO 11/01/17 03:30 (Heparin Inj) 5,000 units Q8H SQ 11/01/17 03:30 11/01/17 03:55 (Tylenol) 650 mg Q6H PRN PO 11/01/17 03:30 (Loli-Colace) 1 tab BID PRN PO 11/01/17 03:30 (Milk Of Magnesia Liq) 30 ml Q12H PRN PO 11/01/17 03:30 (Senokot) 17.2 mg Q12H PRN PO 11/01/17 03:30 (Dulcolax Supp) 10 mg DAILY PRN RECTAL 11/01/17 03:30 (Proair Hfa Inh) 2 puff Q6H PRN INH 11/01/17 03:45 (Aspirin Chew) 81 mg DAILY PO 11/01/17 09:00 (Bumetanide) 2 mg DAILY PO 11/01/17 09:00 (Coreg) 12.5 mg Q12HR PO 11/01/17 09:00 (Cardura) 4 mg DAILY PO 11/01/17 09:00 (Apresoline) 100 mg TID PO 11/01/17 09:00 (Cozaar) 100 mg DAILY PO 11/01/17 09:00 (Pravachol) 40 mg HS PO 11/01/17 21:00 (Procardia Xl) 60 mg BID PO 11/01/17 09:00 (Deltasone) 5 mg BID PO 11/01/17 09:00 (Prograf) 1 mg DAILY PO 11/01/17 09:00 (Brilinta) 90 mg BID PO 11/01/17 09:00 Patient Own Medication PT OWN MED: PRILO... DAILY PO 11/01/17 09:00 Patient Own Medication PT OWN MED: VELPH... DAILY PO 11/01/17 09:00 (Catapres) 0.1 mg Q6H PRN PO 11/01/17 04:00 (Imodium) 2 mg Q6H PRN PO 11/01/17 04:00 Sodium Chloride 1,000 ml @ 0 mls/hr Q0M PRN OTHER 11/01/17 08:13 (Heparin Inj) 8,000 units UNSCH PRN IV FLUSH 11/01/17 08:15 Sodium Chloride 1,000 ml @ 200 mls/hr Q5H PRN IV 11/01/17 08:13 Sodium Chloride 1,000 ml @ 0 mls/hr Q0M PRN OTHER 11/01/17 08:13 (Mannitol Inj) 12.5 gm UNSCH PRN IV 11/01/17 08:15 Albumin Human 100 ml @ 60 mls/hr UNSCH PRN IV 11/01/17 08:15 (NS Flush) 5 ml UNSCH PRN IV FLUSH 11/01/17 08:15 (Zofran Inj) 4 mg UNSCH PRN IV PUSH 11/01/17 08:15 (Tylenol) 650 mg UNSCH PRN PO 11/01/17 08:15 (Benadryl) 25 mg UNSCH PRN PO 11/01/17 08:15 (Nitrostat Sl) 0.4 mg UNSCH PRN SL 11/01/17 08:15 (Catapres) 0.1 mg UNSCH PRN PO 11/01/17 08:15 (Epogen Inj) 4,000 units UNSCH PRN IV PUSH 11/01/17 08:15 (Gelfoam 12 Mm/7 Mm Top) 1 foam UNSCH PRN TOP 11/01/17 08:15 (Imdur) 30 mg DAILY@07 PO 11/01/17 10:00 Family History noncontributory Social History denies smoking or ETOH Physical Exam Vital Signs Vital Signs Date Time Temp Pulse Resp B/P (MAP) Pulse Ox O2 Delivery O2 Flow Rate FiO2 11/01/17 09:13 128/62 (84) 11/01/17 07:00 98.1 78 16 115/54 (74) 100 11/01/17 04:20 89 11/01/17 04:13 18 11/01/17 04:09 98.1 103 20 147/67 (93) 100 11/01/17 04:01 22 11/01/17 03:18 11/01/17 03:14 70 18 157/65 (95) 98 Room Air 11/01/17 02:54 98 11/01/17 00:34 99 18 165/74 (104) 100 Room Air 11/01/17 00:28 20 11/01/17 00:15 104 20 100 Room Air 11/01/17 00:14 106 20 180/75 (110) 100 Room Air 10/31/17 23:54 98.3 101 20 170/76 (107) 100 Physical Exam GENERAL: Well-nourished, well-developed patient. SKIN: Warm and dry. HEAD: Normocephalic. EYES: No scleral icterus. No injection or drainage. NECK: Supple, trachea midline. No JVD or lymphadenopathy. CARDIOVASCULAR: Regular rate and rhythm without murmurs, gallops, or rubs. RESPIRATORY: Breath sounds equal bilaterally. No accessory muscle use. GASTROINTESTINAL: Abdomen soft, non-tender, nondistended. EXTREMITIES: No cyanosis, or edema. NEUROLOGICAL: Awake, alert, and oriented x 3. Non-focal. Laboratory Laboratory Tests Test 11/01/17 00:26 11/01/17 07:12 White Blood Count 12.5 10.4 Red Blood Count 4.82 4.60 Hemoglobin 10.5 9.7 Hematocrit 31.9 30.9 Mean Corpuscular Volume 66.1 67.3 Mean Corpuscular Hemoglobin 21.9 21.2 Mean Corpuscular Hemoglobin Concent 33.1 31.5 Red Cell Distribution Width 17.7 18.3 Platelet Count 327 335 Mean Platelet Volume 8.5 8.2 Neutrophils (%) (Auto) 78.9 72.5 Lymphocytes (%) (Auto) 10.6 14.2 Monocytes (%) (Auto) 8.1 9.7 Eosinophils (%) (Auto) 1.6 3.1 Basophils (%) (Auto) 0.8 0.5 Neutrophils # (Auto) 9.8 7.6 Lymphocytes # (Auto) 1.3 1.5 Monocytes # (Auto) 1.0 1.0 Eosinophils # (Auto) 0.2 0.3 Basophils # (Auto) 0.1 0.0 CBC Comment DIFF FINAL DIFF FINAL Differential Comment Prothrombin Time 10.1 Prothromb Time International Ratio 1.0 Activated Partial Thromboplast Time 23.1 Blood Urea Nitrogen 55 57 Creatinine 8.40 8.70 Random Glucose 131 81 Total Protein 7.6 Albumin 3.8 Calcium Level 8.8 8.2 Magnesium Level 1.8 1.9 Alkaline Phosphatase 130 Aspartate Amino Transf (AST/SGOT) 11 Alanine Aminotransferase (ALT/SGPT) 8 Total Bilirubin 0.3 Sodium Level 132 135 Potassium Level 5.1 5.1 Chloride Level 98 100 Carbon Dioxide Level 20.0 23.3 Anion Gap 14 12 Estimat Glomerular Filtration Rate 6 6 Troponin I 0.06 0.10 Total Creatine Kinase 52 Result Diagram: 11/01/17 0712 11/01/17 0712 Imaging Last Impressions Chest X-Ray 11/01/17 0012 Signed Impressions: CONCLUSION: No acute cardiopulmonary process. Assessment and Plan Problem List: (1) ESRD (end stage renal disease) on dialysis ICD Codes: N18.6 - End stage renal disease; Z99.2 - Dependence on renal dialysis Status: Chronic Plan: Patient seen during dialysis UF 1.5 L tolerating it well MWF' dialysis could not fill prescriptions and came back with CP. (2) Hypertension ICD Codes: I10 - Hypertension Status: Chronic Plan: Continue to follow (3) Diabetes mellitus ICD Codes: E11.9 - Type 2 diabetes mellitus without complications Status: Chronic Plan: Follow BG (4) Chest discomfort ICD Codes: R07.89 - Other chest pain Status: Acute Pura Mcnulty MD Nov 01, 2017 11:37
[2017-11-01] MEDS: hydrALAZINE HCL 100 MG TAB PO SCH ×3 (13:00→18:52)
--- NOTE | 2017-11-01 13:39 | HHI.FPPN ---
Addendum to progress note ADDENDUM Reason for addendum: Additonal documentation Additional information Please see resident H/P for further documentation of the patients history. Patient was admitted to the hospital for CP and to rule out ACS. Patient was recently in the hospital and was discharged home and failed to obtain the medication that she was discharged home with. She reports CP which brought her to the ED. Chest pain was not related to activity and no assoc SOB. She states since admission she has had no further episodes of CP and has been feeling well. Patient was currently being dialyzed during the interview today. Vital Signs Date Time Temp Pulse Resp B/P (MAP) Pulse Ox O2 Delivery O2 Flow Rate FiO2 11/01/17 09:13 128/62 (84) 11/01/17 08:00 76 11/01/17 07:00 98.1 16 100 11/01/17 03:14 Room Air Laboratory Tests Test 11/01/17 00:26 11/01/17 07:12 White Blood Count 12.5 TH/MM3 10.4 TH/MM3 Red Blood Count 4.82 MIL/MM3 4.60 MIL/MM3 Hemoglobin 10.5 GM/DL 9.7 GM/DL Hematocrit 31.9 % 30.9 % Mean Corpuscular Volume 66.1 FL 67.3 FL Mean Corpuscular Hemoglobin 21.9 PG 21.2 PG Mean Corpuscular Hemoglobin Concent 33.1 % 31.5 % Red Cell Distribution Width 17.7 % 18.3 % Platelet Count 327 TH/MM3 335 TH/MM3 Mean Platelet Volume 8.5 FL 8.2 FL Neutrophils (%) (Auto) 78.9 % 72.5 % Lymphocytes (%) (Auto) 10.6 % 14.2 % Monocytes (%) (Auto) 8.1 % 9.7 % Eosinophils (%) (Auto) 1.6 % 3.1 % Basophils (%) (Auto) 0.8 % 0.5 % Neutrophils # (Auto) 9.8 TH/MM3 7.6 TH/MM3 Lymphocytes # (Auto) 1.3 TH/MM3 1.5 TH/MM3 Monocytes # (Auto) 1.0 TH/MM3 1.0 TH/MM3 Eosinophils # (Auto) 0.2 TH/MM3 0.3 TH/MM3 Basophils # (Auto) 0.1 TH/MM3 0.0 TH/MM3 CBC Comment DIFF FINAL DIFF FINAL Differential Comment Prothrombin Time 10.1 SEC Prothromb Time International Ratio 1.0 RATIO Activated Partial Thromboplast Time 23.1 SEC Blood Urea Nitrogen 55 MG/DL 57 MG/DL Creatinine 8.40 MG/DL 8.70 MG/DL Random Glucose 131 MG/DL 81 MG/DL Total Protein 7.6 GM/DL Albumin 3.8 GM/DL Calcium Level 8.8 MG/DL 8.2 MG/DL Magnesium Level 1.8 MG/DL 1.9 MG/DL Alkaline Phosphatase 130 U/L Aspartate Amino Transf (AST/SGOT) 11 U/L Alanine Aminotransferase (ALT/SGPT) 8 U/L Total Bilirubin 0.3 MG/DL Sodium Level 132 MEQ/L 135 MEQ/L Potassium Level 5.1 MEQ/L 5.1 MEQ/L Chloride Level 98 MEQ/L 100 MEQ/L Carbon Dioxide Level 20.0 MEQ/L 23.3 MEQ/L Anion Gap 14 MEQ/L 12 MEQ/L Estimat Glomerular Filtration Rate 6 ML/MIN 6 ML/MIN Troponin I 0.06 NG/ML 0.10 NG/ML Total Creatine Kinase 52 U/L Current Medications Medications (Trade) Dose Ordered Sig/Jonel Route PRN Reason Start Time Stop Time Status Last Admin Dose Admin Sodium Chloride (NS Flush) 2 ml UNSCH PRN IVF FLUSH AFTER USING IV ACCESS 11/01/17 00:15 11/01/17 02:38 DC Nitroglycerin (Nitrostat Sl) 0.4 mg Q5M SL 11/01/17 00:15 11/01/17 00:26 DC 11/01/17 00:23 Carvedilol (Coreg) 12.5 mg ONCE ONCE PO 11/01/17 00:15 11/01/17 00:16 DC 11/01/17 00:21 Losartan Potassium (Cozaar) 100 mg ONCE ONCE PO 11/01/17 00:15 11/01/17 00:16 DC 11/01/17 00:22 Last Impressions Chest X-Ray 11/01/17 0012 Signed Impressions: CONCLUSION: No acute cardiopulmonary process. O. CONSTITUTIONAL/GEN: normally nourished, in NAD. EYES: conjunctiva normal, PERRLA, EOMI. ENT: Mouth and pharynx normal. NECK: thyroid midline, carotids symmetrical. LUNGS: clear A-P, respiratory effort is normal. CARDIOVASCULAR: RR with 2/6 ARGELIA or gallop. No significant edema. GI/ABD: soft without masses, without organomegaly. : no CVA tenderness NEURO: No focal deficits. SKIN: color normal, no rashes noted. HEME/LYMPH: no bruising, petechia or significant adenopathy MUSC: back is normal in appearance. Extremities are normal in appearance. PSYCH/MENTAL STATUS: Alert and oriented x 3. CP - does not appear to be ACS. Likely due to medication noncompliance that seemed somewhat out of control of the patient. Her professor of public administration has seen her and they are reviewing her last cath. and added on long acting nitro which may help with her symptom control. Unless need for fu cath, her symptoms have resolved and vitals ok, this will just be continued medical management. Her other medical problems are stable. Once cleared by cardiology as long as the patient remains free of symptoms and stable can discharge her to home with close outpatient fu. Patient was seen and dw the resident team, Dr. Balbuena. Vickie Hernandez MD Nov 01, 2017 13:39
[2017-11-01] MEDS: SODIUM CHLORIDE 0.9% FLUSH 10 ML FLUSH IV FLUSH SCH ×2 (15:08→22:24)
[2017-11-01] MEDS: ISOSORBIDE MONONITRATE 30 MG CR TAB (IMDUR) PO SCH (15:09)
[2017-11-01] MEDS: TICAGRELOR 90 MG TAB PO SCH ×2 (15:10→22:19)
[2017-11-01] MEDS: ASPIRIN 81 MG CHEW TAB PO SCH (15:10)
[2017-11-01] MEDS: LOSARTAN 50 MG TAB PO SCH (15:11)
[2017-11-01] MEDS: predniSONE 5 MG TAB PO SCH ×2 (15:11→22:18)
[2017-11-01] MEDS: TACROLIMUS 1 MG CAP PO SCH (15:13)
[2017-11-01] MEDS: DOXAZOSIN MESYLATE 4 MG TAB PO SCH (15:23)
[2017-11-01] MEDS: CARVEDILOL 12.5 MG TAB PO SCH ×2 (15:24→22:19)
[2017-11-01] MEDS: NIFEdipine 60 MG SUSTAINED RELEASE TAB PO SCH ×2 (15:24→22:18)
[2017-11-01] MEDS: BUMETANIDE 1 MG TAB PO SCH (15:24)
[2017-11-01] MEDS ORDERED: PRAVASTATIN SOD 40 MG TAB PO SCH (21:00)
--- NOTE | 2017-11-01 21:35 | EKG ---
Date Performed: 11/01/2017 Time Performed: 19:16:09 PTAGE: 56 years EKG: Sinus rhythm NONSPECIFIC T-WAVE ABNORMALITY BORDERLINE ECG Compared to prior electrocardiogram, Rate has slowed, axis has rotated leftward and nonspecific T-wave changes are more prominent. DOCTOR: Jere Bnoilla Interpretating Date/Time 11/01/2017 21:33:33
[2017-11-01 21:40] LABS: PHOSPHORUS 4.1 MG/DL (2.5-4.9)
[2017-11-01 21:43] LABS: TROPONIN I 0.07 NG/ML (0.02-0.05)
--- NOTE | 2017-11-01 22:57 | EKG ---
Date Performed: 11/01/2017 Time Performed: 04:00:29 PTAGE: 56 years EKG: SINUS TACHYCARDIA MODERATE ST DEPRESSION ABNORMAL ECG Compared to PREVIOUS TRACING , ST/T wave changes are more prominent DOCTOR: Amador Zelaya Interpretating Date/Time 11/01/2017 22:56:56
--- NOTE | 2017-11-01 23:00 | EKG ---
Date Performed: 11/01/2017 Time Performed: 00:22:50 PTAGE: 56 years EKG: SINUS TACHYCARDIA POSSIBLE LEFT ATRIAL ENLARGEMENT NONSPECIFIC T-WAVE ABNORMALITY ABNORMAL RHYTHM ECG PREVIOUS TRACING : 10/27/2017 13.44 Since the previous tracing, no significant change noted DOCTOR: Amador Zelaya Interpretating Date/Time 11/01/2017 23:00:07
[2017-11-02 02:06] VITALS: BP 123/58; PULSE 80; RESP 16; TEMP 98.7; O2SAT 100
[2017-11-02] MEDS: HEPARIN SODIUM - SQ 10,000 UNITS/ML VIAL SQ SCH ×2 (03:30→12:01)
[2017-11-02 05:19] VITALS: BP_SYST 128; BP_DIAS 68; BP_DIAS 88; PULSE 86; RESP 16; TEMP 98.2; O2SAT 95
[2017-11-02 06:30] LABS: HEMATOCRIT 33.2 % (35.0-46.0); MEAN CELL VOLUME 67.4 FL (80.0-100.0); MEAN CORPUSCULAR HEMOGLOBIN 20.4 PG (27.0-34.0); MEAN CORPUSCULAR HGB CONC 30.3 % (32.0-36.0); MEAN PLATELET VOLUME 8.6 FL (7.0-11.0); PLATELET COUNT 392 TH/MM3 (150-450); RED BLOOD COUNT 4.92 MIL/MM3 (4.00-5.30); RED CELL DISTRIBUTION WIDTH 18.1 % (11.6-17.2); WHITE BLOOD COUNT 11.2 TH/MM3 (4.0-11.0)
[2017-11-02 07:13] LABS: BICARBONATE 27.1 MEQ/L (21.0-32.0); CREATININE 5.9 MG/DL (0.50-1.00)
--- NOTE | 2017-11-02 07:49 | PD.CARD.PN ---
Subjective Subjective Remarks Pt feels well, no further chest pain. Objective Medications Current Medications Medications (Trade) Dose Ordered Sig/Jonel Route Start Time Stop Time Status Last Admin (NS Flush) 2 ml UNSCH PRN IV FLUSH 11/01/17 02:45 (NS Flush) 2 ml BID IV FLUSH 11/01/17 09:00 11/01/17 22:24 (Nitrostat Sl) 0.4 mg Q5M PRN SL 11/01/17 03:30 11/01/17 04:08 (Morphine Inj) 2 mg Q30M PRN IV PUSH 11/01/17 03:30 11/01/17 03:56 (Zofran Odt) 4 mg Q6H PRN PO 11/01/17 03:30 (Heparin Inj) 5,000 units Q8H SQ 11/01/17 03:30 11/02/17 03:30 (Tylenol) 650 mg Q6H PRN PO 11/01/17 03:30 (Loli-Colace) 1 tab BID PRN PO 11/01/17 03:30 (Milk Of Magnesia Liq) 30 ml Q12H PRN PO 11/01/17 03:30 (Senokot) 17.2 mg Q12H PRN PO 11/01/17 03:30 (Dulcolax Supp) 10 mg DAILY PRN RECTAL 11/01/17 03:30 (Proair Hfa Inh) 2 puff Q6H PRN INH 11/01/17 03:45 11/01/17 22:19 (Aspirin Chew) 81 mg DAILY PO 11/01/17 09:00 11/01/17 15:10 (Bumetanide) 2 mg DAILY PO 11/01/17 09:00 11/01/17 15:24 (Coreg) 12.5 mg Q12HR PO 11/01/17 09:00 11/01/17 22:19 (Cardura) 4 mg DAILY PO 11/01/17 09:00 11/01/17 15:23 (Apresoline) 100 mg TID PO 11/01/17 09:00 11/01/17 18:52 (Cozaar) 100 mg DAILY PO 11/01/17 09:00 11/01/17 15:11 (Pravachol) 40 mg HS PO 11/01/17 21:00 11/01/17 22:19 (Procardia Xl) 60 mg BID PO 11/01/17 09:00 11/01/17 22:18 (Deltasone) 5 mg BID PO 11/01/17 09:00 11/01/17 22:18 (Prograf) 1 mg DAILY PO 11/01/17 09:00 11/01/17 15:13 (Brilinta) 90 mg BID PO 11/01/17 09:00 11/01/17 22:19 Patient Own Medication PT OWN MED: PRILO... DAILY PO 11/01/17 09:00 Patient Own Medication PT OWN MED: VELPH... DAILY PO 11/01/17 09:00 (Catapres) 0.1 mg Q6H PRN PO 11/01/17 04:00 (Imodium) 2 mg Q6H PRN PO 11/01/17 04:00 Sodium Chloride 1,000 ml @ 0 mls/hr Q0M PRN OTHER 11/01/17 08:13 (Heparin Inj) 8,000 units UNSCH PRN IV FLUSH 11/01/17 08:15 Sodium Chloride 1,000 ml @ 200 mls/hr Q5H PRN IV 11/01/17 08:13 Sodium Chloride 1,000 ml @ 0 mls/hr Q0M PRN OTHER 11/01/17 08:13 (Mannitol Inj) 12.5 gm UNSCH PRN IV 11/01/17 08:15 Albumin Human 100 ml @ 60 mls/hr UNSCH PRN IV 11/01/17 08:15 (NS Flush) 5 ml UNSCH PRN IV FLUSH 11/01/17 08:15 (Zofran Inj) 4 mg UNSCH PRN IV PUSH 11/01/17 08:15 (Tylenol) 650 mg UNSCH PRN PO 11/01/17 08:15 (Benadryl) 25 mg UNSCH PRN PO 11/01/17 08:15 (Nitrostat Sl) 0.4 mg UNSCH PRN SL 11/01/17 08:15 (Catapres) 0.1 mg UNSCH PRN PO 11/01/17 08:15 (Epogen Inj) 4,000 units UNSCH PRN IV PUSH 11/01/17 08:15 (Gelfoam 12 Mm/7 Mm Top) 1 foam UNSCH PRN TOP 11/01/17 08:15 (Imdur) 30 mg DAILY@07 PO 11/01/17 10:00 11/01/17 15:09 Vital Signs / I&O Vital Signs Date Time Temp Pulse Resp B/P (MAP) Pulse Ox O2 Delivery O2 Flow Rate FiO2 11/02/17 05:19 98.2 86 16 128/68 (88) 95 11/02/17 02:06 98.7 80 16 123/58 (79) 100 11/01/17 21:56 99.0 81 16 108/52 (70) 100 11/01/17 16:00 98.7 79 16 131/59 (83) 100 11/01/17 15:26 144/65 (91) 11/01/17 09:13 128/62 (84) 11/01/17 08:00 76 I/O 11/01/17 11/01/17 11/01/17 11/02/17 11/02/17 11/02/17 07:00 15:00 23:00 07:00 15:00 23:00 Intake Total 60 ml 400 ml Output Total 2000 ml Balance 60 ml -2000 ml 400 ml Intake Oral 60 ml 400 ml Output Hemodialysis 2000 ml # Voids 1 Physical Exam GENERAL: This is a well-nourished, well-developed patient, in no apparent distress. CARDIOVASCULAR: Regular rate and rhythm without murmurs, gallops, or rubs. RESPIRATORY: Clear to auscultation. Breath sounds equal bilaterally. No wheezes , rales, or rhonchi. GASTROINTESTINAL: Abdomen soft, non-tender, nondistended. Normal active bowel sounds MUSCULOSKELETAL: Extremities without clubbing, cyanosis, or edema. NEURO: Alert & Oriented x4 to person, place, time, situation. Moves all ext x4 Laboratory Laboratory Tests Test 11/01/17 20:22 11/02/17 05:55 Phosphorus Level 4.1 MG/DL Total Creatine Kinase 49 U/L Troponin I 0.07 NG/ML White Blood Count 11.2 TH/MM3 Red Blood Count 4.92 MIL/MM3 Hemoglobin 10.0 GM/DL Hematocrit 33.2 % Mean Corpuscular Volume 67.4 FL Mean Corpuscular Hemoglobin 20.4 PG Mean Corpuscular Hemoglobin Concent 30.3 % Red Cell Distribution Width 18.1 % Platelet Count 392 TH/MM3 Mean Platelet Volume 8.6 FL Blood Urea Nitrogen 31 MG/DL Creatinine 5.90 MG/DL Random Glucose 113 MG/DL Calcium Level 9.0 MG/DL Sodium Level 135 MEQ/L Potassium Level 4.7 MEQ/L Chloride Level 98 MEQ/L Carbon Dioxide Level 27.1 MEQ/L Anion Gap 10 MEQ/L Estimat Glomerular Filtration Rate 9 ML/MIN Imaging Last Impressions Chest X-Ray 11/01/17 0012 Signed Impressions: CONCLUSION: No acute cardiopulmonary process. Assessment and Plan Problem List: (1) Chest pain ICD Codes: R07.9 - Chest pain, unspecified Status: Acute Plan: Resolved, seems to be blood pressure related, had a non-ischemic nuc stress last week, now also on Imdur; continue medical mgt. (2) CAD (coronary artery disease) ICD Codes: I25.10 - Atherosclerotic heart disease of [place] coronary artery without angina pectoris (3) Troponin level elevated ICD Codes: R74.8 - Abnormal levels of other serum enzymes Plan: chronic; not ACS Assessment and Plan Ok to d/c home from cardiac standpoint, I will see her in 1-2 weeks for f/u. If chest pain recurs, particularly if BP controlled at time, would likely ask Dr. Zelaya to re-cath. Edgar Le MD Nov 02, 2017 07:49
[2017-11-02 08:00] VITALS: BP_SYST 110; BP_SYST 114; BP_DIAS 55; PULSE 73; PULSE 76; PULSE 77; RESP 15; TEMP 98; TEMP 98.4; O2SAT 100; O2SAT 99
[2017-11-02] MEDS: VELPHORO 500 MG PO SCH (09:00)
[2017-11-02] MEDS: PRILOSEC 40 MG PO SCH (09:00)
[2017-11-02] MEDS: SODIUM CHLORIDE 0.9% FLUSH 10 ML FLUSH IV FLUSH SCH (09:00)
--- NOTE | 2017-11-02 10:02 | HHI.FPPN ---
Subjective Remarks Patient did well overnight. No new events. No CP, NO SOB, no GI or complaints. States she is ready to go home. She did well with dialysis yesterday with no new issues Objective Vitals Vital Signs Date Time Temp Pulse Resp B/P (MAP) Pulse Ox O2 Delivery O2 Flow Rate FiO2 11/02/17 08:00 98.0 73 15 110/55 (73) 100 11/02/17 05:19 98.2 86 16 128/68 (88) 95 11/02/17 02:06 98.7 80 16 123/58 (79) 100 11/01/17 21:56 99.0 81 16 108/52 (70) 100 11/01/17 16:00 98.7 79 16 131/59 (83) 100 11/01/17 15:26 144/65 (91) I/O 11/01/17 11/01/17 11/01/17 11/02/17 11/02/17 11/02/17 07:00 15:00 23:00 07:00 15:00 23:00 Intake Total 60 ml 400 ml Output Total 2000 ml Balance 60 ml -2000 ml 400 ml Intake Oral 60 ml 400 ml Output Hemodialysis 2000 ml # Voids 1 Result Diagram: 11/02/17 0555 11/02/17 0555 Objective Remarks O. CONSTITUTIONAL/GEN: normally nourished, in NAD. EYES: conjunctiva normal, PERRLA, EOMI. ENT: Mouth and pharynx normal. NECK: thyroid midline, carotids symmetrical. LUNGS: clear A-P, respiratory effort is normal. CARDIOVASCULAR: RR with 2/6 ARGELIA No significant edema. GI/ABD: soft without masses, without organomegaly. : no CVA tenderness NEURO: No focal deficits. Gait is normal SKIN: color normal, no rashes noted. HEME/LYMPH: no bruising, petechia or significant adenopathy MUSC: back is normal in appearance. Extremities are normal in appearance. PSYCH/MENTAL STATUS: Alert and oriented x 3. Urinary Catheter: No A/P Assessment and Plan Mrs. Martin is a 56 y/o F with history of hypertensive nephropathy s/p failed renal transplant and cardiac stenting presenting with chest pain that has now resolved. CP suspected to be secondary to elevated BP and demand ischemia as patient was noncompliant with medication on discharge from the hospital on previous admission. Problem List: (1) Chest pain ICD Codes: R07.9 - Chest pain, unspecified Status: Acute Plan: -Pt. states CP has resolved with SL nitroglycerin, Losartan, and Carvedilol. Soils Technician is Dr. Lopez -Previous ECHO on 10/29/14 showed EF of 65-70% with normal wall motion. Previous stress test showed abnormality and patient was catheterized and stented in the LAD and RCA by Dr. 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 No reversible perfusion defects to suggest ischemia. Ejection fraction of 55%. -EKG showed sinus tachycardia to a rate of [address] elevation or depression. No interval abnormalities. (Per medical team read) -CXR showed no acute abnormality. -cardiology added isosorbide to her regimen. Patient has remained CP free since admission (2) Hypertensive nephropathy ICD Codes: I12.9 - Hypertensive chronic kidney disease with stage 1 through stage 4 chronic kidney disease, or unspecified chronic kidney disease Status: Chronic Plan: Patient with history of failed renal transplant due to hypertensive nephropathy currently on dialysis MWF. Patient known to Dr. Mcintyre (nephrology) and Dr. Mcnulty (transplant). Medications: -Continue home hydralazine, doxazosin, carvedilol, nifedipine, losartan, Velphoro, bumetanide -Hold Sensipar per patient -Clonidine as needed for blood pressure greater than 180/110 (3) Failed kidney transplant ICD Codes: T86.12 - Kidney transplant failure Status: Chronic Plan: Patient with history of failed renal transplant due to hypertensive nephropathy currently on dialysis MWF. Patient known to Dr. Mcintyre (nephrology) and Dr. Mcnulty (transplant). Medications: -Continue home tacrolimus 1 mg daily -Continue home prednisone 2.5mg BID -Medications as above (4) GERD (gastroesophageal reflux disease) ICD Codes: K21.9 - Gastro-esophageal reflux disease without esophagitis Status: Chronic Plan: Medications: -Continue home omeprazole (5) Hyperlipidemia ICD Codes: E78.5 - Hyperlipidemia, unspecified Status: Chronic Plan: Medications: -Continue home lovastatin (6) DVT prophylaxis Status: Chronic Plan: -Bilateral SCDs Medications: -Heparin 5000 units every 8 hours Problem Qualifiers (1) Chest pain: Qualified Codes: R07.9 - Chest pain, unspecified (2) GERD (gastroesophageal reflux disease): Qualified Codes: K21.9 - Gastro-esophageal reflux disease without esophagitis (3) Hyperlipidemia: Qualified Codes: E78.5 - Hyperlipidemia, unspecified Vickie Hernandez MD Nov 02, 2017 10:02
--- NOTE | 2017-11-02 11:09 | HHI.DCPOC ---
Discharge Care Plan Diagnosis: (1) Hypertensive emergency without congestive heart failure (2) Chest pain Goals to Promote Your Health * To prevent worsening of your condition and complications * To maintain your health at the optimal level Directions to Meet Your Goals Take your medications as prescribed Follow your dietary instruction Follow activity as directed Keep your appointments as scheduled Take your immunizations and boosters as scheduled If your symptoms worsen call your PCP, if no PCP go to Urgent Care Center or Emergency Room Smoking is Dangerous to Your Health. Avoid second hand smoke Call the 24-hour hour crisis hotline for domestic abuse at Laurie Balbuena MD R1 Nov 02, 2017 11:09
[2017-11-02] MEDS: BUMETANIDE 1 MG TAB PO SCH (11:59)
[2017-11-02 12:00] VITALS: BP 109/54; PULSE 79; RESP 16; TEMP 97.9; O2SAT 99
[2017-11-02] MEDS: ASPIRIN 81 MG CHEW TAB PO SCH (12:00)
[2017-11-02] MEDS: LOSARTAN 50 MG TAB PO SCH (12:00)
[2017-11-02] MEDS: predniSONE 5 MG TAB PO SCH (12:00)
[2017-11-02] MEDS: CARVEDILOL 12.5 MG TAB PO SCH (12:01)
[2017-11-02] MEDS: DOXAZOSIN MESYLATE 4 MG TAB PO SCH (12:02)
[2017-11-02] MEDS: hydrALAZINE HCL 100 MG TAB PO SCH ×2 (12:02→13:00)
[2017-11-02] MEDS: TICAGRELOR 90 MG TAB PO SCH (12:02)
[2017-11-02] MEDS: NIFEdipine 60 MG SUSTAINED RELEASE TAB PO SCH (12:05)
[2017-11-02] MEDS: TACROLIMUS 1 MG CAP PO SCH (12:12)
[2017-11-02] MEDS: ISOSORBIDE MONONITRATE 30 MG CR TAB (IMDUR) PO SCH (12:13)
[2017-11-02 13:00] VITALS: BP 134/63
[2017-11-02] MEDS ORDERED: ISOS30TA3 PO (14:26)
== END 2017-11-02 17:00 | disposition home or self-care (01) | DRG 304 ==
LOC: NEPE 23:51 → NEDA 11-01 02:34 → NEPHCDU 11-01 03:33
PROVIDERS: ADMIT Family Medicine; ATTEND Family Medicine
PROC: 5A1D70Z Performance of Urinary Filtration, Intermittent, Less than 6 Hours Per Day (ICD-10-PCS; principal; 2017-11-01)
DX: I16.1 Hypertensive emergency (principal); I12.0 Hypertensive chronic kidney disease with stage 5 chronic kidney disease or end stage renal disease; N18.6 End stage renal disease; T86.12 Kidney transplant failure; E11.22 Type 2 diabetes mellitus with diabetic chronic kidney disease; Z91.14 Patient's other noncompliance with medication regimen; R07.9 Chest pain, unspecified; K21.9 Gastro-esophageal reflux disease without esophagitis; E78.5 Hyperlipidemia, unspecified; I25.10 Atherosclerotic heart disease of native coronary artery without angina pectoris; Z95.5 Presence of coronary angioplasty implant and graft; Z79.82 Long term (current) use of aspirin; Z79.52 Long term (current) use of systemic steroids
CPT/HCPCS: 71045; 80048; 80053; 82550; 83735; 84100; 84484; 85025; 85027; 85610; 85730; 90935; 93005; 99285; J1644; J2270; J7507; J7512